=== PATIENT | female | born 1965 | race Caucasian/White ===

== ENCOUNTER 2017-08-13 18:56 | Emergency (ER) | payer MEDICARE, MEDICAID ==
[2017-08-13] MEDS ORDERED: NS 0.9% 1000 ML* 1,000 ML IV ONE (22:06)
[2017-08-13] MEDS ORDERED: Ketorolac INJ* 30 MG/ML 1 ML VIAL IV PUSH ONE (22:06)
[2017-08-13 22:50] LABS: ABS Basophils 0 10^3/ul (0-0.2); ABS Eosinophils 0.2 10^3/ul (0-0.6); ABS Lymphocytes 0.5 10^3/ul (1.0-4.8); ABS Monocytes 0.4 10^3/ul (0-0.8); ABS Neutrophils 6.5 10^3/ul (1.5-7.7); ABS Nucleated RBC 0 10^3/ul; Eosinophil % 2.5 % (0-6); Hematocrit 38 % (35-47); Hemoglobin 13.1 g/dl (12.0-16.0); Lymphocyte % 7.1 % (25-47); Mean Corpuscular HGB Conc 34 g/dl (31-36); Mean Corpuscular Hemoglobin 31 pg (27-31); Mean Corpuscular Volume 90 fL (80-97); Mean Platelet Volume 6 um3 (7.4-10.4); Nucleated Red Blood Cells % 0.1; Platelet Count 296 10^3/ul (150-450); Red Cell Distribution Width 21 % (10.5-15); White Blood Count 7.7 10^3/ul (3.5-10.8)
[2017-08-13 22:57] LABS: INR 0.87 (0.77-1.02)
[2017-08-13 23:57] LABS: Urine Appearance Cloudy; Urine Blood 2+ (Negative); Urine Color Yellow; Urine Ketones Negative (Negative); Urine Protein 1+(30 mg/dL) (Negative); Urine Specific Gravity 1.014 (1.010-1.030); Urine Urobilinogen Negative (Negative)
[2017-08-14] MEDS ORDERED: Levofloxacin TAB* 500 MG PO ONE (00:19)
[2017-08-14] MEDS ORDERED: Ibuprofen TAB* 800 MG PO ONE (00:20)
[2017-08-14] MEDS ORDERED: NS 0.9% 1000 ML* 1,000 ML IV ONE (00:39)
[2017-08-14] MEDS ORDERED: Iodixanol* (CONTRAST) 320 MG/ML 100 ML SDV IV ONE (01:16)
--- NOTE | 2017-08-14 02:36 | ED ---
Scott Kessler Tiffany, scribed for Sohan Shultz MD on 08/13/17 at 2211 . Complex/Multi-Sys Presentation - HPI Summary HPI Summary: The patient is a 51 y/o F c/o left flank pain since 17:00. Describes as sharp and comes and goes every 15-20 minutes and lasts for 2-3 minutes. Rates the pain 9/10 in severity. Symptoms aggravated by nothing. Symptoms alleviated by nothing. Reports nausea. Denies dysuria. Hx of kidney stones. Recent chemo and radiation for esophageal cancer. Finished chemo on 08/07/17. On radiation for the next two days. - History Of Current Complaint Chief Complaint: EDFlankPain Time Seen by Provider: 08/13/17 22:00 Hx Obtained From: Patient Onset/Duration: Lasting Hours - Since 17:00 today, Still Present Timing: Intermittent, Lasting: - 2-3 minutes every 15-20 minutes Severity Currently: Severe - 9/10 Location: Pain At: - left flank Character: Sharp Aggravating Factor(s): Nothing Alleviating Factor(s): Nothing Associated Signs And Symptoms: Positive: Nausea. Negative: Dysuria - Allergies/Home Medications Allergies/Adverse Reactions: Allergies Allergy/AdvReac Type Severity Reaction Status Date / Time acetaminophen Allergy See Comment Verified 08/13/17 19:09 [From Darvocet-N] diphenhydramine Allergy Anaphylatic Verified 08/13/17 19:09 [From Benadryl] Shock MS Acetaminophen Allergy See Comment Verified 10/04/16 16:24 [From Darvocet-N] MS Diphenhydramine Allergy Anaphylatic Verified 10/04/16 16:24 [From Benadryl] Shock MS Penicillins [PCN] Allergy Rash Verified 10/04/16 16:24 MS Propoxyphene Allergy See Comment Verified 10/04/16 16:24 [From Darvocet-N] MS Sulfa Antibiotics Allergy Rash Verified 10/04/16 16:24 [Sulfa Antibiotics] Penicillins Allergy Rash Verified 08/13/17 19:09 propoxyphene Allergy See Comment Verified 08/13/17 19:09 [From Darvocet-N] Sulfa (Sulfonamide Allergy Rash Verified 08/13/17 19:09 Antibiotics) PMH/Surg Hx/FS Hx/Imm Hx Previously Healthy: No Endocrine/Hematology History: Reports: Hx Diabetes - type 2 Cardiovascular History: Reports: Hx Hypertension - TAKES MEDICATION Denies: Hx Pacemaker/ICD Sensory History: Denies: Hx Hearing Aid Neurological History: Reports: Hx Seizures - Cancer History Cancer Type, Location and Year: HYPERPLASIA. Esophageal cancer - Surgical History Surgery Procedure, Year, and Place: HYSTERECTOMY. GALLBLADDER Infectious Disease History: No Infectious Disease History: Denies: Traveled Outside the [place] in Last 30 Days - Family History Known Family History: Positive: Other - No FHx of breast CA - Social History Alcohol Use: None Hx Substance Use: No Substance Use Type: Reports: None Hx Tobacco Use: No Smoking Status (MU): Never Smoked Tobacco Review of Systems Positive: Nausea Negative: dysuria Positive: Other - Left flank pain All Other Systems Reviewed And Are Negative: Yes Physical Exam - Summary Physical Exam Summary: VITAL SIGNS: Reviewed. GENERAL: Patient is a morbidly obsese female who is lying comfortable in the stretcher. Patient is not in any acute respiratory distress. HEAD AND FACE: No signs of trauma. No ecchymosis, hematomas or skull depressions. No sinus tenderness. EYES: PERRLA, EOMI x 2, No injected conjunctiva, no nystagmus. EARS: Hearing grossly intact. Ear canals and tympanic membranes are within normal limits. MOUTH: Oropharynx within normal limits. NECK: Supple, trachea is midline, no adenopathy, no JVD, no carotid bruit, no c- spine tenderness, neck with full ROM. BACK: Left CVA tenderness CHEST: Symmetric, no tenderness at palpation LUNGS: Clear to auscultation bilaterally. No wheezing or crackles. CVS: Regular rate and rhythm, S1 and S2 present, no murmurs or gallops appreciated. ABDOMEN: Soft, non-tender. No signs of distention. No rebound no guarding, and no masses palpated. Bowel sounds are normal. EXTREMITIES: FROM in all major joints, no edema, no cyanosis or clubbing. NEURO: Alert and oriented x 3. No acute neurological deficits. Speech is normal and follows commands. SKIN: Dry and warm Triage Information Reviewed: Yes Vital Signs On Initial Exam: Initial Vitals Temp Pulse Resp BP Pulse Ox 97.9 F 129 20 141/99 99 08/13/17 19:05 08/13/17 19:05 08/13/17 19:05 08/13/17 19:05 08/13/17 19:05 Vital Signs Reviewed: Yes Diagnostics - Vital Signs Vital Signs Temp Pulse Resp BP Pulse Ox 08/13/17 19:05 97.9 F 129 20 141/99 99 - Laboratory Result Diagrams: 08/13/17 22:34 08/13/17 22:34 Lab Statement: Any lab studies that have been ordered have been reviewed, and results considered in the medical decision making process. - CT CT Abd/Pel CT Interpretation Completed By: Radiologist - There is a tiny calcified nodule in the right lower lobe compatible with a granuloma. The visualized lung bases are otherwise clear. Small hiatal hernia. Cholecystectomy clips in the gallbladder fossa. Enlarged fatty liver. Mild splenomegaly. Possible small nonobstructing stone in the lower pole of the left kidney. The upper abdominal visceral organs are otherwise unremarkable. A normal appendix is visualized. Scattered colonic diverticula without evidence of acute diverticulitis. The uterus is absent. No intra-abdominal free air or free fluid. The ED physician reviewed this radiology report. CTA Chest CT Interpretation: No Acute Changes - No acute pathology. ED physician reviewed this radiology report. CT Interpretation Completed By: Radiologist - EKG 0035 Cardiac Rate: Tachycardia - 120 bpm EKG Rhythm: Sinus Tachycardia EKG Interpretation: Normal axis. Normal intervals. Complex Multi-Symp Course/Dx Assessment/Plan: The patient is a 51 y/o F c/o left flank pain since 17:00. Describes as sharp and comes and goes every 15-20 minutes and lasts for 2-3 minutes. Rates the pain 9/10 in severity. Symptoms aggravated by nothing. Symptoms alleviated by nothing. Reports nausea. Denies dysuria. Hx of kidney stones. Recent chemo and radiation for esophageal cancer. Finished chemo on . On radiation for the next two days. CT Abd/Pel and CTA Chest reveal on acute findings. EKG is sinus tachy. Bloodwork was done. UA reveals a UTI. Pt will be D/C to home with Dx of UTI with Rx for Levaquin. She understands and agrees. Allergies noted. - Diagnoses Provider Diagnoses: UTI (urinary tract infection) Discharge - Discharge Plan Condition: Stable Disposition: HOME Prescriptions: Levofloxacin TAB* [Levaquin TAB*] 500 mg PO DAILY #7 tab Patient Education Materials: Urinary Tract Infection in Women (ED) Referrals: Jose Horne DO [Primary Care Provider] - 3 Days Additional Instructions: RETURN TO EMERGENCY DEPARTMENT FOR ANY RETURNING OR WORSENING SYMPTOMS. The documentation as recorded by the Scott mcwilliams Tiffany accurately reflects the service I personally performed and the decisions made by , Sohan Shultz MD.
[2017-08-14 02:57] VITALS: BP 128/79
--- NOTE | 2017-08-14 07:34 | RAD ---
CLINICAL HISTORY: Abdominal pain, left flank pain, history of esophageal cancer COMPARISON: PET CT dated June 29, 2012 TECHNIQUE: Multiple contiguous axial CT scans were obtained of the abdomen and pelvis, without intravenous contrast enhancement. Coronal and sagittal multiplanar reformations are submitted for review. Oral contrast was not administered. FINDINGS: The study is limited by the lack of intravenous contrast. This limits evaluation of the solid organs and vasculature. LUNG BASES: The lung bases are clear. LIVER: The liver is diffusely low in attenuation compared to the spleen. There are no focal hepatic parenchymal masses. Liver measures 23.4 cm in long axis. BILE DUCTS: There is no intrahepatic or extrahepatic biliary dilatation. GALLBLADDER: The gallbladder is not visualized. Surgical clips are noted in the gallbladder fossa. PANCREAS: The pancreas is normal, without mass or ductal dilatation. SPLEEN: The spleen measures 13.1 cm in long axis. UPPER GI TRACT: Evaluation of the gastrointestinal tract is limited by incomplete gastric distention. There is a small sliding hiatal hernia. SMALL BOWEL AND MESENTERY: The small bowel is normal in contour, course, and caliber. There is no obstruction or dilatation. COLON: There are multiple diverticula throughout the transverse and descending and sigmoid colon. There is no pericolonic inflammatory change. ADRENALS: Normal bilaterally. KIDNEYS: There is a punctate calculus of lower pole of left kidney measuring 0.1 cm. There is no hydronephrosis. There is no appreciable ureteral stone. BLADDER: The bladder is smooth in contour. PELVIC ORGANS: The pelvic organs are not visualized. AORTA: The aorta is normal. IVC: Unremarkable LYMPH NODES: There is no lymphadenopathy by size criteria. ABDOMINAL WALL: There is no evidence for abdominal wall hernia. BONES AND SOFT TISSUES: Mild degenerative changes are noted. OTHER: None IMPRESSION: 1. PUNCTATE NONOBSTRUCTING LEFT RENAL CALYCEAL STONE. NO APPRECIABLE URETERAL STONE OR HYDRONEPHROSIS. 2. DIVERTICULOSIS. 3. HEPATOMEGALY WITH FATTY INFILTRATION OF THE LIVER. 4. THE SPLEEN IS AT THE UPPER LIMITS OF NORMAL IN SIZE
--- NOTE | 2017-08-14 07:43 | RAD ---
INDICATION: Chest pain. Short of breath. Evaluate for pulmonary embolus. History of esophageal carcinoma COMPARISON: PET scan June 29, 2017 TECHNIQUE: Axial source images were obtained from the thoracic inlet to the hemidiaphragms following administration of [address] angiographic technique was utilized. Coronal and sagittal reconstructed images were acquired. CHEST FINDINGS: Neck/thyroid: The visualized neck to include the thyroid appear normal. Chest wall: There are no acute abnormalities of the bony thorax or chest wall. There is no supraclavicular, infraclavicular, or axillary lymphadenopathy. Lungs : There are no pulmonary parenchymal masses or infiltrates. The pulmonary interstitium appears normal. There are no endobronchial lesions. Cardiomediastinal structures: There is no CT evidence of acute pulmonary embolic disease. The heart is normal in size. There is no pericardial effusion. There is no evidence of aortic aneurysm or dissection. There is no mediastinal or hilar adenopathy. There are calcified mesenteric lymph nodes consistent with old granulomatous disease. There is mild diffuse mural thickening of the esophagus. Pleura : There are no pleural-based masses or effusions. Other: Limited views the upper abdomen show marked hepatic steatosis with hepatomegaly. IMPRESSION: NO CT EVIDENCE OF ACUTE PULMONARY EMBOLIC DISEASE. MURAL THICKENING OF THE ESOPHAGUS. OLD GRANULOMATOUS DISEASE. HEPATOMEGALY WITH . HEPATIC STEATOSIS
== END 2017-08-14 03:01 | disposition home or self-care (01) ==
LOC: ED 18:56
DX: N39.0 Urinary tract infection, site not specified (principal); R10.84 Generalized abdominal pain; R11.0 Nausea; E11.9 Type 2 diabetes mellitus without complications; K57.90 Diverticulosis of intestine, part unspecified, without perforation or abscess without bleeding
CPT/HCPCS: 36415; 71275; 74176; 80053; 81003; 81015; 82150; 83690; 83735; 85025; 85610; 85730; 86140; 87077; 87086; 87186; 93005; 96374; 99284; A9270-GY; J1885; Q9967

== ENCOUNTER → 2017-09-13 12:45 | Day surgery (SDC) | payer MEDICARE, MEDICAID ==
[~2017-09-13 12:45] MED LIST: Buffered Lidocaine 0.9% SYRIN* 5 ML/SYR SYRINGE INTRADERM ONE; Famotidine IV* 10 MG/ML 2 ML (20 mg) IV ONE; Famotidine IV* 10 MG/ML 2 ML (20 mg) ONE; Flumazenil* 0.1 MG/ML 5 ML MDV ONE; HYDROmorphone INJ* 1 MG/ML CARPUJECT SYRINGE IV PRN; Lidocaine 2% PF * 5 ML VIAL ONE; Metoprolol Tartrate IV* 1 MG/ML 5 ML VIAL ONE; Midazolam* 1 MG/ML 2 ML VIAL (2 MG) ONE; Naloxone* 0.4 MG/ML 1 ML VIAL ONE; Ondansetron INJ* 2 MG/ML VIAL IV PRN; Propofol* 10 MG/ML 20 ML BTL IV PUSH ONE; Scopolamine 1.5 mg* PATCH TRANSDERM PRN; Scopolamine PATCH Remove* 1 NOTE MISC PATCH OFF ONE; Sodium Citrate/Citric Acid* 15 ML UDC ONE; Sodium Citrate/Citric Acid* 15 ML UDC PO ONE; VASOPRESSIN 20 UNITS/ML 1 ML VIAL ONE; fentaNYL* 50 MCG/ML 2 ML VIAL (100 MCG VIAL) IV PRN; fentaNYL* 50 MCG/ML 2 ML VIAL (100 MCG VIAL) ONE
[2017-09-13] MEDS: Naloxone* 0.4 MG/ML 1 ML VIAL IV PRN ×3 (16:43→16:47)
[2017-09-13 19:05] VITALS: BP 138/93
--- NOTE | 2017-09-14 10:15 | PRO ---
CC: Dr. Gómez; Dr. Jose Horne DATE OF PROCEDURE: 09/13/17 REFERRING PHYSICIANS: Dr. Gómez, Dr. Jose Horne. PROCEDURE PERFORMED: Colonoscopy to cecum. PREOPERATIVE DIAGNOSIS: [id number] female here for routine screening colonoscopy. POSTOPERATIVE DIAGNOSES: 1. 5 mm polyp x4 of the rectum, status post jumbo biopsy resection, complete resection and retrieval . 2. Scattered diverticulosis throughout the colon. 3. Internal hemorrhoids. PROCEDURE MEDICATIONS: Per Anesthesia. The procedure is performed in the OR due to BMI and multiple comorbidities. INSTRUMENT: PCF-190 Olympus variable high-definition pediatric colonoscope. DESCRIPTION OF PROCEDURE: Informed consent was obtained prior to performing this procedure. The ins trument was introduced into the anus and passed to the rectum under direct visualization. The instru ment was then advanced up to the cecum. The cecum was confirmed by visualization of the appendiceal orifice, ileocecal valve, and tri-folds of the cecum. The colonoscope was slowly withdrawn. The pre paration was fair with abundant irrigation and suctioning. Visualization was minimally limited, but adequate to exclude the presence of any significant lesions. The mucosa of the cecum, ascending colo n, transverse colon, descending colon, sigmoid colon was normal. Scattered diverticulosis was noted throughout the colon. In the rectum, there were four 5 mm polyps removed via jumbo biopsy resection, complete resection and retrieval. Internal hemorrhoids were visualized in the rectum. Digital exami nation was normal. The patient tolerated the procedure well and there were no complications. RECOMMENDATIONS: We will notify the patient of pathology results in 1 week. Likely these are small a denomas and we will plan on followup colonoscopy in 5 years. [id number]/[facility] #: [id number]
--- NOTE | 2017-09-14 10:33 | PRO ---
CC: Dr. Gómez; Dr. Jose Horne GASTROENTEROLOGY PROCEDURE NOTE: DATE OF PROCEDURE: 09/13/17 REFERRING PHYSICIAN: Dr. Jose Horne. PROCEDURE: EGD with biopsies. 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 She was deemed a poor surgical candidate due to multiple com orbidities and underwent chemotherapy and radiation therapy, which was completed on 08/07/17. She de la paz s been on omeprazole 40 mg b.i.d. for years. She had stage IB N0 M0 cancer of the upper third of the esophagus. She complains of recent dysphagia particularly to meats and large foods. POSTOPERATIVE DIAGNOSES: 1. Evidence of 2 cm sessile inflammatory, question suspicious lesion at 32 cm from the incisors. Mu ltiple biopsies obtained. 2. Evidence of distal esophagitis with jagged Z-line at 40 cm from the incisors. Biopsies obtained. 3. Mild gastritis. 4. Normal small bowel. PROCEDURE MEDICATIONS: Per Anesthesia. INSTRUMENT: GF-190 Olympus high-definition gastroscope. PROCEDURE IN DETAIL: Informed consent was obtained prior to performing this procedure. The instrume nt was introduced into the mouth and passed through the cervical esophagus under direct visualization . The instrument was then advanced down the esophagus. At 32 cm from the incisors, there was a sess ile 2 cm inflammatory versus suspicious lesion. Photograph and multiple biopsies were obtained. No stricture was present throughout the proximal or mid esophagus. There was evidence of some scarring c onsistent with prior radiation therapy. In the distal esophagus at the level of the GE junction at 4 0 cm from the incisors, there was evidence of esophagitis with a jagged Z-line. Biopsies were obtain ed. The scope was passed into the gastric cardia, fundus, body and antrum. Mild antral gastritis was present. The scope was passed through the pylorus and the duodenal bulb and descending duodenum, debra th of which were normal. The instrument was withdrawn from the patient. Patient tolerated the proce dure well and there were no complications. RECOMMENDATIONS: I will contact the patient in 1 week with biopsy results. She should follow up robby Gómez as planned. [id number]/[facility] #: [id number]
== END | disposition home or self-care (01) ==
LOC: OR 12:45
PROVIDERS: ATTEND Internal Medicine
DX: C15.4 Malignant neoplasm of middle third of esophagus (principal); R13.10 Dysphagia, unspecified; K20.9 Esophagitis, unspecified; K29.60 Other gastritis without bleeding; Z12.11 Encounter for screening for malignant neoplasm of colon; K62.1 Rectal polyp; K64.8 Other hemorrhoids; K57.30 Diverticulosis of large intestine without perforation or abscess without bleeding; E11.9 Type 2 diabetes mellitus without complications; I10 Essential (primary) hypertension; E03.9 Hypothyroidism, unspecified; M79.7 Fibromyalgia; Z68.42 Body mass index [BMI] 45.0-49.9, adult; K31.84 Gastroparesis; K76.0 Fatty (change of) liver, not elsewhere classified; R16.0 Hepatomegaly, not elsewhere classified
CPT/HCPCS: 78815; 88305; 88360; A9270-GY; A9552; J2250; J2310; J2704; J3010; J3490

== ENCOUNTER 2017-12-27 21:38 | Inpatient (IN) | payer MEDICARE, MEDICAID ==
[2017-12-27] MEDS ORDERED: Acetaminophen TAB* 325 MG PO ONE (22:01)
[2017-12-27] MEDS ORDERED: Ibuprofen TAB* 400 MG PO ONE (22:01)
--- NOTE | 2017-12-28 00:20 | HP ---
H&P (Free Text) History and Physical: PCP: Shavon Horne MD Oncology: Chago Gómez MD Date/Time: 12/28/2017 0030 CC: dislodged feeding tube HPI: Mrs Couch is a pleasant 52YO female HX esophageal CA s/p radioTX, LUE DVT/ PE who has been at [facility] for rehab the past 2 weeks. She states her feeding tube dressing had not been changed for 4 days and when it was being changed by nursing, it was adherent to the feeding tube extricating it. ED has consulted oncology who advised inserting a place vicente and overnight observation and they will arrange replacement via GI in AM. Ms Couch has no complaints otherwise. 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 Case reviewed b/t ED & oncology providers. Oncology requests observation in order to arrange replacement in AM by GI. PMedHx esophageal CA s/p radioTX LUE DVT/PE on rivaroxaban DM2 asthma HTN HLD hypothyroidism depression Ambulatory Orders Sertraline* [Zoloft*] 100 mg PO QPM 02/16/15 Acetaminophen TAB* [Tylenol TAB*] 650 mg G TUBE Q4H PRN 12/27/17 Albuterol 2.5MG/3ML (0.083%)* [Ventolin 2.5 MG/3 ML NEB.SHADE*] 2.5 mg INH Q6H PRN 12/27/17 Erythromycin Ethylsuc SUSP* [Ees*] 250 mg PO QID 12/27/17 Glycerin [Fleet Liquid Glycerin Sup] 5.4 gm NH DAILY PRN 12/27/17 Insulin ASPART (NF) [Novolog (NF)] 0 - 100 units SUBCUT AC 12/27/17 Insulin GLARGINE(*) [Lantus(*)] 10 units SUBCUT DAILY 12/27/17 Levothyroxine TAB* [Synthroid TAB*] 50 mcg G TUBE QAM 12/27/17 Magnesium Hydroxide LIQ* [Milk of Magnesia LIQ*] 30 ml G TUBE BID PRN 12/27/17 Metoprolol Tartrate TAB* [Lopressor TAB*] 12.5 mg PO BID 12/27/17 Pravastatin (NF) [Pravachol (NF)] 40 mg PO DAILY 12/27/17 QUEtiapine TAB* [Seroquel 25 MG TAB*] 50 mg PO DAILY 12/27/17 Rivaroxaban TAB(*) [Xarelto 15 mg(*)] 15 mg PO BID 12/27/17 traMADol TAB* [Ultram*] 50 mg PO BID PRN 12/27/17 Allergies diphenhydramine [From Benadryl] Allergy (Verified 12/27/17 21:48) Anaphylatic Shock latex Allergy (Verified 12/27/17 21:48) blisters on skin Penicillins Allergy (Verified 12/27/17 21:48) Rash phenobarbital Allergy (Verified 12/27/17 21:48) Unknown Reaction Details propoxyphene [From Darvocet-N] Allergy (Verified 12/27/17 21:48) See Comment Sulfa (Sulfonamide Antibiotics) Allergy (Verified 12/27/17 21:48) Rash SocHx: former smoker, no alcohol or recreational drugs; single; full code status FamHx: reviewed & non-contributor to presentation ROS: as above, otherwise reviewed and all were negative vitals: Vital Signs Temp 36.5 C 12/27/17 21:46 Pulse 122 12/28/17 01:03 Resp 16 12/28/17 01:03 BP 162/109 12/27/17 21:46 Pulse Ox 97 12/28/17 01:03 Intake & Output 12/27/17 12/27/17 12/28/17 11:59 23:59 11:59 Weight 124.738 kg Constitutional: NAD, normally developed, morbidly obese white female HEENM: atraumatic; sclera/conjunctiva: anicteric/clear; hearing: clinically intact; oropharynx: clear, mucosa moist Neck: soft tissue: non-tender; thyroid: normal Pulmonary: clear to auscultation bilaterally, fair aeration, no accessory muscle use CV: RR/RR, normal S1S2, no carotid bruit, no jugular venous distention, 2+ B DP/ PT, no edema Abdominal: soft, non-distended, non-tender, no rebound/guarding/rigidity, normoactive bowel sounds, no hepatosplenomegaly or masses, no costovertebral angle tenderness Musculoskeletal: general: L 2nd distal phalanx with eschar at tip Integumental: L abdomen with catheter placed by ED MD into jejunostomy site, no erythema, bleeding, warmth, tenderness, or induration Psychiatric orientation: AA&O to PPS affect: flat mood: cooperative eye contact: fair content: reliable responses: timely insight: good Impression: 52F HX esophageal CA w/ feeding tube dislodged this evening by [facility] nursing during dressing change DIAGNOSIS & PLAN Primary feeding tube dislodged : admit observation to oncology service to arrange replacement via GI in AM Secondary esophageal CA s/p radioTX : continue outpatient management per oncology LUE DVT/PE : continue rivaroxaban DM2 : check A1c : basal/correctional insulin asthma : continue albuterol HTN : continue metoprolol HLD : continue pravastatin hypothyroidism : continue levothyroxine depression : continue sertraline & quetiapine Admission Rational: CDU observation for feeding tube replacement DVTp: continue rivaroxaban Code Status: full HCP: mother, Lisa Boland
[2017-12-28] MEDS ORDERED: GLYCERIN PR PRN (00:40)
[2017-12-28] MEDS ORDERED: Magnesium Hydroxide LIQ* 30 ML UDC PO PRN (00:40)
[2017-12-28] MEDS ORDERED: Acetaminophen TAB* 325 MG PO PRN (00:40)
[2017-12-28] MEDS ORDERED: Albuterol 2.5 MG/3 ML NEB.SOL* (0.083%) INH ONE (00:46)
[2017-12-28] MEDS: Albuterol 2.5 MG/3 ML NEB.SOL* (0.083%) INH SCH ×4 (01:02→19:35)
--- NOTE | 2017-12-28 01:20 | ED ---
Complex/Multi-Sys Presentation - HPI Summary HPI Summary: Pt is a 52 y/o F with a J-tube and stitches that were accidentally pulled out by [facility]dc staff when they were attempting to change a 2-3 day old bandage. Pt states that she had esophagectomy and notes that, "they stitched up the ends". She reports that there was a plan to wean the Pt off of the J-tube but states that the [facility]dc staff did not follow through with this plan. Per triage, she denies any pain. - History Of Current Complaint Chief Complaint: EDGeneral Time Seen by Provider: 12/27/17 22:00 Hx Obtained From: Patient Onset/Duration: Sudden Onset, Still Present Severity Currently: None - Pt denies pain Associated Signs And Symptoms: Negative: Abdominal Pain - Allergies/Home Medications Allergies/Adverse Reactions: Allergies Allergy/AdvReac Type Severity Reaction Status Date / Time diphenhydramine Allergy Anaphylatic Verified 12/27/17 21:48 [From Benadryl] Shock latex Allergy blisters Verified 12/27/17 21:48 on skin Penicillins Allergy Rash Verified 12/27/17 21:48 phenobarbital Allergy Unknown Verified 12/27/17 21:48 Reaction Details propoxyphene Allergy See Comment Verified 12/27/17 21:48 [From Darvocet-N] Sulfa (Sulfonamide Allergy Rash Verified 12/27/17 21:48 Antibiotics) Home Medications: Home Medications Acetaminophen TAB* [Tylenol TAB*] 650 mg G TUBE Q4H PRN 12/27/17 [History Confirmed 12/27/17] Albuterol 2.5MG/3ML (0.083%)* [Ventolin 2.5 MG/3 ML NEB.SHADE*] 2.5 mg INH Q6H PRN 12/27/17 [History Confirmed 12/27/17] Erythromycin Ethylsuc SUSP* [Ees*] 250 mg PO QID 12/27/17 [History Confirmed 06/04] Glycerin [Fleet Liquid Glycerin Sup] 5.4 gm GA DAILY PRN 12/27/17 [History Confirmed 12/27/17] Insulin ASPART (NF) [Novolog (NF)] 0 - 100 units SUBCUT AC 12/27/17 [History Confirmed 12/27/17] Insulin GLARGINE(*) [Lantus(*)] 10 units SUBCUT DAILY 12/27/17 [History Confirmed 12/27/17] Levothyroxine TAB* [Synthroid TAB*] 50 mcg G TUBE QAM 12/27/17 [History Confirmed 12/27/17] Magnesium Hydroxide LIQ* [Milk of Magnesia LIQ*] 30 ml G TUBE BID PRN 12/27/17 [ History Confirmed 12/27/17] Metoprolol Tartrate TAB* [Lopressor TAB*] 12.5 mg PO BID 12/27/17 [History Confirmed 12/27/17] Pravastatin (NF) [Pravachol (NF)] 40 mg PO DAILY 12/27/17 [History Confirmed 06/04] QUEtiapine TAB* [Seroquel 25 MG TAB*] 50 mg PO DAILY 12/27/17 [History Confirmed 12/27/17] Rivaroxaban TAB(*) [Xarelto 15 mg(*)] 15 mg PO BID 12/27/17 [History Confirmed 12/27/17] traMADol TAB* [Ultram*] 50 mg PO BID PRN 12/27/17 [History Confirmed 12/27/17] PMH/Surg Hx/FS Hx/Imm Hx Endocrine/Hematology History: Reports: Hx Diabetes - type 2, Hx Thyroid Disease - hypo Cardiovascular History: Reports: Hx Hypertension - TAKES MEDICATION Denies: Hx Pacemaker/ICD, Other Cardiovascular Problems/Disorders Respiratory History: Denies: Other Respiratory Problems/Disorders GI History: Reports: Hx Gastroesophageal Reflux Disease Denies: Other GI Disorders History: Denies: Hx Renal Disease Musculoskeletal History: Denies: Other Musculoskeletal History Sensory History: Reports: Hx Contacts or Glasses - glasses Denies: Hx Hearing Aid Opthamlomology History: Reports: Hx Contacts or Glasses - glasses Neurological History: Reports: Hx Nerve Disease - fibromyalgia, Hx Seizures - with strobe lights, no meds, last one 3-4 yrs ago Denies: Other Neuro Impairments/Disorders Psychiatric History: Reports: Hx Anxiety - on meds, Hx Depression - on meds Denies: Hx Panic Disorder - Cancer History Cancer Type, Location and Year: esophagus Hx Chemotherapy: Yes - Surgical History Surgery Procedure, Year, and Place: HYSTERECTOMY, 2007, [place]. GALLBLADDER, 2009 , [place] Hx Anesthesia Reactions: Yes - diff to wake up Infectious Disease History: No Infectious Disease History: Denies: Traveled Outside the US in Last 30 Days - Family History Known Family History: Positive: Other - No FHx of breast CA Family History: No FHx of breast CA - Social History Alcohol Use: None Hx Substance Use: No Substance Use Type: Reports: None Hx Tobacco Use: No Smoking Status (MU): Former Smoker Review of Systems Negative: Fever Positive: Other - removed J-tube and stitches . Negative: Abdominal Pain All Other Systems Reviewed And Are Negative: Yes Physical Exam - Summary Physical Exam Summary: Appearance: Well-appearing, Well-nourished, lying in bed comfortably Skin: Warm, dry, no obvious rash Eyes: sclera anicteric, no conjunctival pallor ENT: mucous membranes moist, pharynx appears normal Neck: Supple, nontender Respiratory: Clear to auscultation, no signs of respiratory distress Cardiovascular: Normal S1, S2. No murmurs. Normal distal pulses in tibial and radial bilaterally. Abdomen: Soft, nontender, normal active bowel sounds present. Musculoskeletal: Normal, Strength/ROM Intact Neurological: A&Ox3, awake and alert, mentation is normal, speech is fluent and appropriate Psychiatric: affect is normal, does not appear anxious or depressed Triage Information Reviewed: Yes Vital Signs On Initial Exam: Initial Vitals Temp Pulse Resp BP Pulse Ox 97.7 F 129 22 162/109 97 12/27/17 21:46 12/27/17 21:46 12/27/17 21:46 12/27/17 21:46 12/27/17 21:46 Vital Signs Reviewed: Yes Diagnostics - Vital Signs Vital Signs Temp Pulse Resp BP Pulse Ox 12/28/17 01:03 122 16 97 12/27/17 21:46 97.7 F 129 22 162/109 97 - Laboratory Lab Statement: Any lab studies that have been ordered have been reviewed, and results considered in the medical decision making process. Complex Multi-Symp Course/Dx - Diagnoses Provider Diagnoses: Jejunostomy tube fell out Discharge - Sign-Out/Discharge Documenting (check all that apply): Patient Departure - Discharge Plan Condition: Good Disposition: ADMITTED TO [facility] - Billing Disposition and Condition Condition: GOOD Disposition: Admitted to [facility]
[2017-12-28] MEDS: traMADol TAB* 50 MG PO PRN ×2 (02:13→16:35)
[2017-12-28] MEDS: Rivaroxaban TAB(*) 15 MG PO SCH ×2 (02:13→10:48)
[2017-12-28] MEDS: Insulin LISPRO* 1 UNITS UNIT SUBCUT SCH ×6 (02:51→22:41)
[2017-12-28] MEDS: Albuterol 2.5 MG/3 ML NEB.SOL* (0.083%) INH PRN (03:00)
[2017-12-28 06:20] LABS: ABS Basophils 0.1 10^3/ul (0-0.2); ABS Eosinophils 0.2 10^3/ul (0-0.6); ABS Lymphocytes 0.6 10^3/ul (1.0-4.8); ABS Monocytes 0.4 10^3/ul (0-0.8); ABS Nucleated RBC 0 10^3/ul; Eosinophil % 3.4 % (0-6); Hematocrit 33 % (35-47); Mean Corpuscular HGB Conc 34 g/dl (31-36); Mean Corpuscular Hemoglobin 28 pg (27-31); Mean Corpuscular Volume 84 fL (80-97); Mean Platelet Volume 6.8 um3 (7.4-10.4); Nucleated Red Blood Cells % 0.3; Platelet Count 312 10^3/ul (150-450); Red Blood Count 3.91 10^6/ul (4.00-5.40); Red Cell Distribution Width 17 % (10.5-15); White Blood Count 5.2 10^3/ul (3.5-10.8)
[2017-12-28] MEDS: Levothyroxine TAB* 50 MCG TAB PO SCH ×2 (06:25→09:52)
[2017-12-28 06:28] LABS: INR 1.33 (0.77-1.02)
[2017-12-28 06:37] LABS: EGFR Non-African American 99.6 (>60)
[2017-12-28] MEDS: Metoprolol Tartrate TAB* 25 MG PO SCH ×2 (10:01→22:51)
[2017-12-28] MEDS: Atorvastatin* 10 MG TAB PO SCH (10:06)
[2017-12-28] MEDS: QUEtiapine TAB* 25 MG PO SCH (10:47)
[2017-12-28] MEDS: [UNRECOGNIZED DRUG - OTHER] PO SCH ×2 (10:47→13:38)
--- NOTE | 2017-12-28 11:45 | PN ---
Progress Note - Progress Note Date of Service: 12/28/17 SOAP: Subjective: [This is a 52 yo female with recurrent esophageal CA who underwent minimally invasive esophagectomy with cervical anastomosis and J tube placement 11/01/[address] at [facility]. Her postoperative course with complicated by a LUE DVT and subsequent PE while on reportedly therapeutic doses of Lovenox, treated acutely with argatroban, transitioned to Xarelto at discharge. Interestingly her dose of Xarelto is still listed at 15mg twice daily, although her PE was at least 6 weeks ago. She exhibited stroke like symptoms ~1 week postoperatively, w/u was negative for acute infarct and her neurologic deficits resolved. She spent several weeks in rehab associated with [facility] and was transferred to [facility] ~ 2 weeks ago. She reports that up until recently she had been receiving tube feedings 20hrs daily and eating one meal per day by mouth. She was told by her surgeon she could advance to 3 small meals daily by mouth and continuous tube feeds in the overnight hours, with plans to taper her tube feedings further. Yesterday, her J-tube became dislodged during a dressing change. She was transferred to the ER. A Carlin catheter was placed in her tract to maintain patency. Her Jtube site became acutely painful earlier this am. The catheter had slipped deeper and her pain was relieved by pulling some of the length of the catheter back out.] Objective: [ Laboratory Results - last 24 hr 12/28/17 12/28/17 12/28/17 02:25 05:59 05:59 WBC 5.2 RBC 3.91 L Hgb 11.0 L Hct 33 L MCV 84 MCH 28 MCHC 34 RDW 17 H Plt Count 312 MPV 6.8 L Neut % (Auto) 76.4 Lymph % (Auto) 12.0 L Wood % (Auto) 7.1 H Eos % (Auto) 3.4 Baso % (Auto) 1.1 Absolute Neuts (auto) 4.0 Absolute Lymphs (auto) 0.6 L Absolute Monos (auto) 0.4 Absolute Eos (auto) 0.2 Absolute Basos (auto) 0.1 Absolute Nucleated RBC 0 Nucleated RBC % 0.3 INR (Anticoag Therapy) 1.33 H Sodium Potassium Chloride Carbon Dioxide Anion Gap BUN Creatinine Est GFR ( Amer) Est GFR (Non-Af Amer) BUN/Creatinine Ratio Glucose POC Glucose (mg/dL) 120 H Calcium 12/28/17 12/28/17 12/28/17 05:59 06:14 10:05 WBC RBC Hgb Hct MCV MCH MCHC RDW Plt Count MPV Neut % (Auto) Lymph % (Auto) Wood % (Auto) Eos % (Auto) Baso % (Auto) Absolute Neuts (auto) Absolute Lymphs (auto) Absolute Monos (auto) Absolute Eos (auto) Absolute Basos (auto) Absolute Nucleated RBC Nucleated RBC % INR (Anticoag Therapy) Sodium 139 Potassium 3.8 Chloride 105 Carbon Dioxide 27 Anion Gap 7 BUN 12 Creatinine 0.63 Est GFR ( Amer) 120.5 Est GFR (Non-Af Amer) 99.6 BUN/Creatinine Ratio 19.0 Glucose 146 H POC Glucose (mg/dL) 140 H 141 H Calcium 9.6 Acetaminophen (Tylenol Tab*) 650 mg PO Q4H PRN PRN Reason: PAIN Albuterol (Ventolin 2.5 Mg/3 Ml Neb.Patti*) 2.5 mg INH [id number] AWAKE [facility] Last Admin: 12/28/17 07:13 Dose: 2.5 mg Albuterol (Ventolin 2.5 Mg/3 Ml Neb.Patti*) 2.5 mg INH Q2H PRN PRN Reason: SOB/WHEEZING Last Admin: 12/28/17 03:00 Dose: 2.5 mg Atorvastatin Calcium (Lipitor*) 10 mg PO DAILY [facility]; Protocol Last Admin: 12/28/17 10:06 Dose: 10 mg Erythromycin Ethylsuccinate (Ees*) 250 mg PO QID [facility] Last Admin: 12/28/17 10:47 Dose: Not Given Insulin Glargine (Lantus(*)) 30 units 0.24 units/kg (30 units) SUBCUT 2100 [facility] Stop: 12/29/17 20:00 Insulin Human Lispro (Humalog*) 0 units SUBCUT Q4H [facility]; Protocol Last Admin: 12/28/17 10:48 Dose: Not Given Levothyroxine Sodium (Synthroid Tab*) 50 mcg PO 0600 [facility] Last Admin: 12/28/17 09:52 Dose: 50 mcg Magnesium Hydroxide (Milk Of Magnesia Liq*) 30 ml PO BID PRN PRN Reason: CONSTIPATION Metoprolol Tartrate (Lopressor Tab*) 12.5 mg PO BID [facility] Last Admin: 12/28/17 10:01 Dose: 12.5 mg Non-Formulary Medication (Glycerin [Glycerin Laxative]) 5.4 gm AR DAILY PRN PRN Reason: CONSTIPATION Quetiapine Fumarate (Seroquel Tab*) 50 mg PO DAILY [facility] Last Admin: 12/28/17 10:47 Dose: Not Given Rivaroxaban (Xarelto(*)) 15 mg PO BID [facility] Last Admin: 12/28/17 10:48 Dose: Not Given Sertraline HCl (Zoloft*) 100 mg PO QPM [facility] Tramadol HCl (Ultram*) 50 mg PO BID PRN PRN Reason: PAIN Last Admin: 12/28/17 02:13 Dose: 50 mg Vital Signs: Temp Pulse Resp BP Pulse Ox 98.2 F 110 19 145/83 97 12/28/17 11:01 12/28/17 11:01 12/28/17 11:01 12/28/17 11:01 12/28/17 11:01 Exam: Gen: 52 yo obese female who initially appeared in moderate distress HEENT: MMM CV: mildly tachycardic, RRR Resp: diffuse wheeze, no crackles or rhonchi Abd: J tube site in RUQ, Carlin catheter in place. Bowel sounds present, but hypoactive. Soft and nonTTP Ext: No LE edema] Assessment: [52 yo female with recurrent esophageal CA s/p esophagectomy 11/01/17 [address] at [facility]. She was admitted overnight after her Jtube became dislodged during a dressing change postoperatively. Currently awaiting surgical consultation for replacement.] Plan: [1. Dislodged Jtube - Carlin catheter in place to maintain potency - surgical consultation requested for replacement of tube - maintain NPO for now - resume tube feedings once replaced 2. Esophageal CA - recurrent at site just distal to prior radiation field, no evidence of distant or LN disease - now s/p esophagectomy with Dr Henriquez 11/01/17 3. DVT/PE - recent DVT/PE following esophagectomy - cont Xarelto, but at 20 mg once daily (will discuss anticoagulation with surgery prior to giving today's dose) 4. DM - cont basal/bolus coverage 5. Obesity Dispo: return home v [facility] following J tube replacement ]
--- NOTE | 2017-12-28 16:17 | RAD ---
INDICATION: Jejunal feeding tube check. COMPARISON: November 26, 2017 CT. Written informed consent obtained. Timeout performed. PROCEDURE: 40 mL Gastrografin contrast injected through the jejunal port on the feeding tube with opacification of the jejunum with subsequent appropriate distal propagation of contrast through the jejunum. The feeding tube appears coiled within a bowel loop. Subsequently Dr. Wells removed and shortened the length of the catheter prior to reinsertion. Subsequent an additional 40 mL Gastrografin injection documents documents appropriate enteric location of the feeding tube. No evidence for extra enteric extension of the injected Gastrografin. 0.2 minutes fluoroscopy. IMPRESSION: Acceptable position of the percutaneous jejunal feeding tube. CPT II Codes: G9500
[2017-12-28] MEDS: Sertraline* 100 MG TAB PO SCH (17:51)
[2017-12-28] MEDS ORDERED: Insulin GLARGINE(*) 1 UNITS UNIT SUBCUT SCH (21:00)
--- NOTE | 2017-12-29 01:17 | PRO ---
CC: Jose Horne DO; [facility]; [facility] PROCEDURE REPORT: DATE OF PROCEDURE: 12/28/17 SURGEON: Stevie Wells MD DEV OPS ENGINEER: None. ANESTHESIA: None. PRE-OP DIAGNOSIS: Esophageal carcinoma. POST-OP DIAGNOSIS: Esophageal carcinoma. PROCEDURE: Replacement of jejunal feeding tube. SPECIMEN: None. TUBE: 14-Fr jejunal feeding tube DESCRIPTION OF PROCEDURE: The patient was explained the procedure and verbal consent was obtained. She was positioned supine on the bed. The indwelling Carlin catheter was removed. A 14-Fr silicone, jejunal feeding catheter was placed without difficulty after cutting toa length of about 15-in.. The balloon was inflated with 7 mL water. The flange of the tube was snugged down to the abdominal wall. She tolerated the procedure well. Position was confirmed by fluoroscopy. [id number]/CPS #: [id number] MTDD
[2017-12-29] MEDS: Albuterol 2.5 MG/3 ML NEB.SOL* (0.083%) INH SCH ×3 (01:24→12:33)
[2017-12-29] MEDS: Insulin LISPRO* 1 UNITS UNIT SUBCUT SCH ×6 (02:53→21:27)
[2017-12-29] MEDS: Levothyroxine TAB* 50 MCG TAB PO SCH (05:41)
[2017-12-29] MEDS: Metoprolol Tartrate TAB* 25 MG PO SCH ×2 (09:30→22:12)
[2017-12-29] MEDS: QUEtiapine TAB* 25 MG PO SCH (09:30)
[2017-12-29] MEDS: Atorvastatin* 10 MG TAB PO SCH (09:31)
[2017-12-29] MEDS ORDERED: Ondansetron TAB* 4 MG PO PRN (14:21)
[2017-12-29] MEDS: Rivaroxaban TAB(*) 20 MG TAB PO SCH (18:03)
[2017-12-29] MEDS: Sertraline* 100 MG TAB PO SCH (18:03)
[2017-12-29] MEDS: Albuterol 2.5 MG/3 ML NEB.SOL* (0.083%) INH PRN (21:04)
[2017-12-30] MEDS: Insulin LISPRO* 1 UNITS UNIT SUBCUT SCH ×6 (04:20→21:51)
[2017-12-30] MEDS: Albuterol 2.5 MG/3 ML NEB.SOL* (0.083%) INH PRN ×2 (04:44→20:50)
[2017-12-30] MEDS: Levothyroxine TAB* 50 MCG TAB PO SCH (06:28)
[2017-12-30] MEDS: Atorvastatin* 10 MG TAB PO SCH (10:14)
[2017-12-30] MEDS: Metoprolol Tartrate TAB* 25 MG PO SCH ×2 (10:14→21:58)
[2017-12-30] MEDS: QUEtiapine TAB* 25 MG PO SCH (10:14)
[2017-12-30] MEDS ORDERED: Loperamide CAP* 2 MG PO PRN (10:19)
[2017-12-30] MEDS: Sertraline* 100 MG TAB PO SCH (18:09)
[2017-12-30] MEDS: Rivaroxaban TAB(*) 20 MG TAB PO SCH (18:09)
[2017-12-30] MEDS ORDERED: Insulin GLARGINE(*) 1 UNITS UNIT SUBCUT SCH (21:00)
[2017-12-31] MEDS: Insulin LISPRO* 1 UNITS UNIT SUBCUT SCH ×3 (02:11→13:02)
[2017-12-31] MEDS: Levothyroxine TAB* 50 MCG TAB PO SCH (06:07)
[2017-12-31 07:58] VITALS: BP 137/94
[2017-12-31] MEDS: QUEtiapine TAB* 25 MG PO SCH (08:16)
[2017-12-31] MEDS: Metoprolol Tartrate TAB* 25 MG PO SCH (08:17)
[2017-12-31] MEDS: Atorvastatin* 10 MG TAB PO SCH (08:18)
[2017-12-31] MEDS: Albuterol 2.5 MG/3 ML NEB.SOL* (0.083%) INH PRN (09:48)
--- NOTE | 2017-12-31 12:46 | DS ---
CC: Dr. Horne; Dr. Marky Gómez; Dr. Henriquez of [facility]. * DISCHARGE SUMMARY: DATE OF ADMISSION: 12/28/17 DATE OF DISCHARGE: 12/31/17 PRIMARY CARE PROVIDER: Dr. Horne. PRIMARY MEDICAL ONCOLOGIST: Marky Gómez MD. CONSULTING SURGEON: Stevie Wells MD. PRIMARY SURGEON AT [facility]: Dr. Henriquez. ATTENDING PHYSICIAN: Alonso Yi MD.* (DICTATED BY NORY GILLIAM) DISCHARGING PROVIDER: NORY Gilliam. PRIMARY DISCHARGE DIAGNOSES: 1. Dislodged J-tube, replaced by Dr. Wells. 2. Recurrent esophageal cancer, status post esophagectomy with cervical anastomosis by Dr. Henriquez at [facility], 11/01/17. 3. Left upper extremity deep vein thrombosis and subsequent pulmonary embolus following esophagectomy. 4. Insulin-dependent diabetes. 5. Obesity with a BMI of 44.7. HOSPITAL IMAGING: Tube check status post replacement of J-tube shows acceptable positioning of percutaneous jejunal feeding tube. HOSPITAL COURSE: This is a 52-year-old female who underwent concurrent chemo and radiation for esophageal cancer and unfortunately experienced recurrence just distal to her radiation filed without evidence of distal disease who underwent esophagectomy at [facility], 11/01/17. The patient experienced left upper extremity DVT and some transient stroke like symptoms as complications of her surgical course and was in a rehab type unit for several weeks following surgery and was subsequently discharged to [facility] for subacute rehab for two weeks. During a dressing change at [facility] her J-tube became dislodged and she was transferred to the emergency department for evaluation. As she presented in the overnight hours, she had a Carlin catheter placed at her J-tube place to maintain patency and was admitted for a period of observation. The patient was evaluated by surgery on the following day and J-tube was successfully replaced. The patient experienced the left upper extremity DVT and subsequent PE reportedly on therapeutic doses of Lovenox in her postoperative period and she was treated acutely with argatroban and transitioned to Xarelto at the time of discharge. At the time of admission here, she was still taking 15 mg of Xarelto twice daily, although from reviewing discharge summaries it appears that her embolic event was approximately six weeks ago and she was transitioned to 20 mg once a day. She had no other complications during this hospitalization. DISCHARGE PLAN AND DISPOSITION: The patient is being discharged to home and she met rehab goals at [facility]. Per her surgeon, recommendations are to continue with tube feedings for 10 hours a day in the overnight period, specifically from 8 p.m. to 6 a.m., at a rate of 85 mL per hour and she can have three small meals daily and mechanical ground solids, nectar thickened liquids. She denies any dysphagia during her hospitalization and will follow up with her surgeon sometime in the next couple of weeks for further instructions regarding her tube feeds. The patient has been set up with [facility] for tube feedings at home and is relatively independent with tube care. She has followup with Dr. Gómez in approximately two weeks. Plan to continue Lantus at 10 units nightly. At this time, she was not on insulin therapy prior to surgery and this can likely be tapered over if the coming week just depending on what her oral intake and fasting glucose looks like. NORY GILLIAM [id number]/[facility] #: [id number] ONDINA
== END 2017-12-31 12:10 | disposition home health service (06) | DRG 394 ==
LOC: ED 21:38 → MED 12-28 00:46 → OBSVTOIN 12-30 11:03
PROVIDERS: ADMIT Hospitalist; ATTEND Internal Medicine Hematology & Oncology
PROC: 0D2DXUZ Change Feeding Device in Lower Intestinal Tract, External Approach (ICD-10-PCS; principal; 2017-12-28)
PROC: 0T9B70Z Drainage of Bladder with Drainage Device, Via Natural or Artificial Opening (ICD-10-PCS; 2017-12-28)
DX: Z43.4 Encounter for attention to other artificial openings of digestive tract (principal); C15.9 Malignant neoplasm of esophagus, unspecified; Z68.41 Body mass index [BMI] 40.0-44.9, adult; I10 Essential (primary) hypertension; E11.9 Type 2 diabetes mellitus without complications; E03.9 Hypothyroidism, unspecified; K21.9 Gastro-esophageal reflux disease without esophagitis; F41.9 Anxiety disorder, unspecified; F32.9 Major depressive disorder, single episode, unspecified; E78.5 Hyperlipidemia, unspecified; J45.909 Unspecified asthma, uncomplicated; E66.9 Obesity, unspecified; Z86.711 Personal history of pulmonary embolism; Z85.01 Personal history of malignant neoplasm of esophagus; Z90.710 Acquired absence of both cervix and uterus; Z92.3 Personal history of irradiation; Z88.6 Allergy status to analgesic agent; Z88.0 Allergy status to penicillin; Z88.2 Allergy status to sulfonamides; Z88.8 Allergy status to other drugs, medicaments and biological substances; Z90.49 Acquired absence of other specified parts of digestive tract; Z80.8 Family history of malignant neoplasm of other organs or systems; Z87.891 Personal history of nicotine dependence; Z86.718 Personal history of other venous thrombosis and embolism; Z79.01 Long term (current) use of anticoagulants
CPT/HCPCS: 36415; 49465; 80048; 85025; 85610; 87641; 94640; 99226; 99233; 99239; 99284; A9270-GY; G0378

== ENCOUNTER 2018-01-07 14:34 | Emergency (ER) | payer MEDICARE, MEDICAID ==
--- NOTE | 2018-01-07 15:16 | ED ---
Complex/Multi-Sys Presentation - HPI Summary HPI Summary: This is scribe Hanh Chavez documenting for attending Madi Aguilar MD. 52 year old F sent from Dr. Gómez's office [facility] complains of nausea and vomiting bile since two days ago. Symptoms aggravated by nothing. Symptoms alleviated by nothing. She reports BLE edema since resolved. Patient's esophagus removed two months ago d/t esophageal cancer. Patient has J tube. She was admitted after surgery and was discharged 12/31/17. She states she has not been taking her medication this past week since being discharged because she didn't know she was supposed to. Patient called Dr. Gómez's office this morning and was sent to ED. - History Of Current Complaint Chief Complaint: EDNauseaVomitDiarrh Time Seen by Provider: 01/07/18 15:02 Hx Obtained From: Patient Onset/Duration: Lasting Days - 3, Still Present Aggravating Factor(s): nothing Alleviating Factor(s): nothing - Allergies/Home Medications Allergies/Adverse Reactions: Allergies Allergy/AdvReac Type Severity Reaction Status Date / Time diphenhydramine Allergy Anaphylatic Verified 01/07/18 15:42 [From Benadryl] Shock latex Allergy blisters Verified 01/07/18 15:42 on skin Penicillins Allergy Rash Verified 01/07/18 15:42 phenobarbital Allergy Unknown Verified 01/07/18 15:42 Reaction Details propoxyphene Allergy See Comment Verified 01/07/18 15:42 [From Darvocet-N] Sulfa (Sulfonamide Allergy Rash Verified 01/07/18 15:42 Antibiotics) PMH/Surg Hx/FS Hx/Imm Hx Previously Healthy: No Endocrine/Hematology History: Reports: Hx Diabetes - type 2, Hx Thyroid Disease - hypo Cardiovascular History: Reports: Hx Deep Vein Thrombosis - x3 in LUE, Hx Hypercholesterolemia, Hx Hypertension - TAKES MEDICATION Denies: Hx Pacemaker/ICD, Other Cardiovascular Problems/Disorders Respiratory History: Reports: Hx Asthma Denies: Other Respiratory Problems/Disorders GI History: Reports: Hx Gastroesophageal Reflux Disease, Other GI Disorders - CA OF ESOPH/ ESOPH REMOVED. 10/2017 History: Denies: Hx Renal Disease Musculoskeletal History: Reports: Hx Fibromyalgia Denies: Other Musculoskeletal History Sensory History: Reports: Hx Contacts or Glasses - glasses Denies: Hx Hearing Aid Opthamlomology History: Reports: Hx Contacts or Glasses - glasses Neurological History: Reports: Hx CVA, Hx Nerve Disease - fibromyalgia, Hx Seizures - with strobe lights, no meds, last one 3-4 yrs ago Psychiatric History: Reports: Hx Anxiety - on meds, Hx Depression - on meds Denies: Hx Panic Disorder - Cancer History Cancer Type, Location and Year: esophagus Hx Chemotherapy: Yes Hx Radiation Therapy: Yes - Surgical History Surgery Procedure, Year, and Place: HYSTERECTOMY, 2007, [place]. GALLBLADDER, 2009 , [place] Hx Anesthesia Reactions: Yes - diff to wake up Infectious Disease History: No Infectious Disease History: Denies: Traveled Outside the [place] in Last 30 Days - Family History Known Family History: Positive: Other - No FHx of breast CA Family History: No FHx of breast CA - Social History Alcohol Use: None Hx Substance Use: No Substance Use Type: Reports: None Hx Tobacco Use: Yes Smoking Status (MU): Former Smoker Review of Systems Positive: Vomiting - bile, Nausea, Other - patient has J tube Positive: Edema - BLE since resolved All Other Systems Reviewed And Are Negative: Yes Physical Exam - Summary Physical Exam Summary: Appearance: The patient is well-nourished in no acute distress and in no acute pain. Skin: The skin is warm and dry and skin color reflects adequate perfusion. HEENT: The head is normocephalic and atraumatic. The pupils are equal and reactive. The conjunctivae are clear and without drainage. Nares are patent and without drainage. Mouth reveals moist mucous membranes and the throat is without erythema and exudate. The external ears are intact. The ear canals are patent and without drainage. The tympanic membranes are intact. Neck: The neck is supple with full range of motion and non-tender. There are no carotid bruits. There is no neck vein distension. Respiratory: Chest is non-tender. Lungs are clear to auscultation and breath sounds are symmetrical and equal. Cardiovascular: Heart is regular rate and rhythm. There is no murmur or rub auscultated. There is no peripheral edema and pulses are symmetrical and equal. Abdomen: The abdomen is soft and non-tender. There are normal bowel sounds heard in all four quadrants and there is no organomegaly palpated. J tube site is clean. Musculoskeletal: There is no back tenderness noted. Extremities are non-tender with full range of motion. There is good capillary refill. There is no peripheral edema or calf tenderness elicited. Neurological: Patient is alert and oriented to person, place and time. The patient has symmetrical motor strength in all four extremities. Cranial nerves are grossly intact. Deep tendon reflexes are symmetrical and equal in all four extremities. Psychiatric: The patient has an appropriate affect and does not exhibit any anxiety or depression. Triage Information Reviewed: Yes Vital Signs On Initial Exam: Initial Vitals Temp Pulse Resp BP Pulse Ox 97.6 F 120 20 128/98 97 01/07/18 14:39 01/07/18 14:39 01/07/18 14:39 01/07/18 14:39 01/07/18 14:39 Vital Signs Reviewed: Yes Diagnostics - Vital Signs Vital Signs Temp Pulse Resp BP Pulse Ox 01/07/18 14:39 97.6 F 120 20 128/98 97 - Laboratory Result Diagrams: 01/07/18 15:59 01/07/18 15:59 Lab Statement: Any lab studies that have been ordered have been reviewed, and results considered in the medical decision making process. Re-Evaluation - Re-Evaluation First Eval Re-Evaluation Time: 18:10 Comment: Discussed discharge plan with patient, who is agreeable to discharge Complex Multi-Symp Course/Dx Course Of Treatment: Ms. Couch went home from the hospital about a week ago in the last few days she has been having some vomiting and is not keeping her medications down. She comes in quite upset and complaining mostly of nausea. Her workup was within normal limits aside from a positive UA. She felt quite improved with fluids and Zofran. She was given IV Cipro and prescriptions for Cipro and Zofran to go and it is recommended she follow up with her PCP this week. - Diagnoses Provider Diagnoses: Urinary tract infection, Dehydration Discharge - Sign-Out/Discharge Documenting (check all that apply): Patient Departure - Discharge - Discharge Plan Condition: Stable Disposition: HOME Prescriptions: Ciprofloxacin TAB* [Cipro Tab*] 500 mg PO BID #14 tab Ondansetron ODT TAB* [Zofran Odt TAB*] 4 mg PO Q6H PRN #20 tab.odt PRN Reason: Nausea/Vomiting Patient Education Materials: Dehydration (ED), Urinary Tract Infection in Women (ED) Referrals: Jose Horne DO [Doctor of Osteopathy] - 3 Days Additional Instructions: Follow up with your primary care provider in 3 days. Return to the Emergency Department for new or worsening symptoms. - Billing Disposition and Condition Condition: STABLE Disposition: Home
[2018-01-07] MEDS ORDERED: NS 0.9% 1000 ML* 1,000 ML IV ONE (16:15)
[2018-01-07] MEDS ORDERED: Ondansetron INJ* 2 MG/ML VIAL IV ONE (16:15)
[2018-01-07 16:16] LABS: ABS Basophils 0.1 10^3/ul (0-0.2); ABS Eosinophils 0.2 10^3/ul (0-0.6); ABS Lymphocytes 0.5 10^3/ul (1.0-4.8); ABS Monocytes 0.4 10^3/ul (0-0.8); ABS Neutrophils 6.2 10^3/ul (1.5-7.7); ABS Nucleated RBC 0 10^3/ul; Eosinophil % 2.3 % (0-6); Hematocrit 35 % (35-47); Hemoglobin 11.6 g/dl (12.0-16.0); Lymphocyte % 7.5 % (25-47); Mean Corpuscular HGB Conc 33 g/dl (31-36); Mean Corpuscular Hemoglobin 28 pg (27-31); Mean Corpuscular Volume 84 fL (80-97); Mean Platelet Volume 6.9 um3 (7.4-10.4); Nucleated Red Blood Cells % 0.2; Platelet Count 292 10^3/ul (150-450); Red Blood Count 4.14 10^6/ul (4.00-5.40); Red Cell Distribution Width 16 % (10.5-15); White Blood Count 7.4 10^3/ul (3.5-10.8)
[2018-01-07 16:17] LABS: INR 1.01 (0.77-1.02)
[2018-01-07 16:51] LABS: EGFR Non-African American 94.4 (>60)
[2018-01-07] MEDS ORDERED: Ciprofloxacin 400MG IVPREMIX(* 400 MG/200 ML BAG IVPB ONE (17:45)
[2018-01-07 19:40] VITALS: BP 113/91
== END 2018-01-07 19:41 | disposition home or self-care (01) ==
LOC: ED 14:34
DX: N39.0 Urinary tract infection, site not specified (principal); E86.0 Dehydration; C15.9 Malignant neoplasm of esophagus, unspecified; I10 Essential (primary) hypertension; F41.9 Anxiety disorder, unspecified; F32.9 Major depressive disorder, single episode, unspecified; Z79.899 Other long term (current) drug therapy; Z90.49 Acquired absence of other specified parts of digestive tract; Z93.4 Other artificial openings of gastrointestinal tract status; Z87.891 Personal history of nicotine dependence; Z88.0 Allergy status to penicillin; Z88.8 Allergy status to other drugs, medicaments and biological substances; Z88.2 Allergy status to sulfonamides
CPT/HCPCS: 36415; 80053; 83605; 83690; 84484; 85025; 85610; 86140; 96361; 96365; 96375; 99283; J0744; J2405

== ENCOUNTER 2018-01-15 20:14 | Emergency (ER) | payer MEDICARE, MEDICAID ==
--- OUTSIDE RECORDS SUMMARY | 2018-01-15 20:59 | XMS REPORT ---
:1965 External Reference #:[id number] Author Organization [employer] Address [address] [place] [address] [place] [address] Phone [phone] Care Team Providers Name Role Phone Marky Gómez MD Primary Care Physician Unavailable Payers Type Date Identification Numbers Payment Provider Subscriber Medicare Primary Effective: Policy Number: Medicare Shireen Couch 2016 [id number] PayID: [id number] [address] [place] [address] Medifort payne Part B Effective: 2011 Policy Number: Medicaid Shireen Couch [id number] PayID: [id number] [address] [place] [address] Problems Date Description Provider Status Onset: 10/12/2017 Essential hypertension Junior Colin M.D., [facility], Active FASNC Onset: 10/12/2017 Difficulty breathing Junior Colin M.D., [facility], Active FASNC Onset: 12/28/2017 Type 2 diabetes mellitus Daniel Williamson II, M.D. Active Onset: 12/28/2017 Malignant tumor of esophagus Daniel Williamson II, M.D. Active Onset: 12/28/2017 Other complications of Daniel Williamson II, M.D. Active esophagostomy Family History Date Family Member(s) Problem(s) Comments General patient adopted and doesnt know famiy history Social History Type Date Description Comments Marital Status Lives With children live with patient Occupation Disabled ETOH Use Denies alcohol use Smoking Patient is a former smoker Quit 1992 Recreational Drug Use Denies Drug Use Daily Caffeine Consumes on average 3 cups of regular coffee per day Daily Caffeine consumes chocolate frequently Exercise Type/Frequency Does not exercise Allergies, Adverse Reactions, Alerts Date Description Reaction Status Severity Comments 10/12/2017 Darvocet active 10/12/2017 Benadryl active 10/12/2017 Penicillin active 10/12/2017 Phenobarbital active 10/12/2017 Oxaliplatin active 10/12/2017 Plexion active 10/12/2017 Latex active 10/12/2017 Bee Sting active 10/12/2017 Peppers active Medications Medication Date Status Form Strength Qnty SIG Indications Ordering Provider Lisinopril / Active Tablets 5mg 1 by mouth Unknown 0000 every day Tramadol HCL / Active Tablets 50mg 2- tablet Unknown 0000 by mouth every 6 hours as needed pain Sertraline HCL / Active Tablets 100mg 1 by mouth Unknown 0000 every day Vitamin D-3 / Active Tablets 5000Unit take 1 tab Unknown 0000 by mouth daily Cranberry With / Active Tablets 4200mg 1 by mouth Unknown Vitamin C 0000 twice daily Magnesium / Active Tablets 400mg 2 by mouth Unknown 0000 every day Levothyroxine / Active Tablets 75mcg 1 by mouth Unknown Sodium 0000 every day Omeprazole / Active Capsules 40mg 1 by mouth Unknown 0000 DR twice daily Epipen 2-Yonas / Active Solution 0.3mg/0.3M use as Unknown 0000 Auto-Injec L directed t Ibuprofen / Active Tablets 200mg 4 by mouth Unknown 0000 as needed Medications Administered in Office Medication Date Status Form Strength Qnty SIG Indications Ordering Provider Inj, Administered Injection Junior Jac Regadenoson, 018 Cristi, 0.1 MG Shital, FACC, FASNC Technetium TC Administered Injection Junior Nathan 99M 018 Cristi, Tetrofosmin, Shital, FACC, Per Unit Dose FASNC Up To 40 Millicuries Technetium TC Administered Injection Ica Nuclear 99M 018 Schedule Tetrofosmin, Per Unit Dose Up To 40 Millicuries Vital Signs Date Vital Result Comment 01/10/2018 Height 64.25 inches 5'4.25" Weight 200.00 lb Heart Rate 62 /min BP Systolic 114 mmHg BP Diastolic 60 mmHg Respiratory Rate 18 /min Body Temperature 97.7 F BMI (Body Mass Index) 34.1 kg/m2 10/23/2017 Height 64.25 inches 5'4.25" Weight 272.00 lb BP Systolic Sitting 130 mmHg lue lg cuff BP Diastolic Sitting 90 mmHg lue lg cuff BP Systolic Standing 140 mmHg lue lg cuff BP Diastolic Standing 90 mmHg lue lg cuff Respiratory Rate 20 /min Pain Level 9 back BMI (Body Mass Index) 46.3 kg/m2 Ejection Fraction 60-65% 10/16/2017 echo 10/12/2017 Height 64.25 inches 5'4.25" Weight 266.00 lb Heart Rate 108 /min BP Systolic 124 mmHg Ra Large Cuff BP Diastolic 80 mmHg Ra Large Cuff BP Systolic Sitting 124 mmHg LA Large Cuff BP Diastolic Sitting 86 mmHg LA Large Cuff BP Systolic Standing 124 mmHg LA Large Cuff BP Diastolic Standing 90 mmHg LA Large Cuff Respiratory Rate 16 /min Pain Level 8 back O2 % BldC Oximetry 97 % BMI (Body Mass Index) 45.3 kg/m2 Results Description No Information Procedures Date CPT Code Description Status 10/22/2017 08405 Stress Test Completed 10/22/2017 72256 Myocardial Perfusion Imaging Tomographic (Spect) Completed Multiple Studies 10/16/2017 72530 ECHO Transthoracic, Real-Time 2D With Doppler And Color Completed Flow 10/16/2017 18047 ECHO Transthoracic, Real-Time 2D With Doppler And Color Completed Flow 10/12/2017 99914 EKG Tracing & Interpretation Completed 09/13/2017 29779 Colonoscopy Flexible W/Biopsy Completed 09/13/2017 10803 Endoscopy Upper GI Biopsy Completed 09/13/2017 Colonoscopy Completed Encounters Type Date Location Provider CPT E/M Dx Office Visit 10/23/2017 [facility], 49164 R06.00 3:00p Juan Isaacs, CLARENCE SOLORZANO Office Visit 10/12/2017 [facility], [id number] I10 11:20a Juan Ayonland Shital, CLARENCE SOLORZANO R06.00 Plan of Care No Information Available
[2018-01-15 21:12] LABS: ABS Basophils 0 10^3/ul (0-0.2); ABS Eosinophils 0.2 10^3/ul (0-0.6); ABS Lymphocytes 0.7 10^3/ul (1.0-4.8); ABS Monocytes 0.3 10^3/ul (0-0.8); ABS Neutrophils 4.1 10^3/ul (1.5-7.7); ABS Nucleated RBC 0 10^3/ul; Eosinophil % 3.7 % (0-6); Hematocrit 34 % (35-47); Hemoglobin 11.6 g/dl (12.0-16.0); Lymphocyte % 12.9 % (25-47); Mean Corpuscular HGB Conc 34 g/dl (31-36); Mean Corpuscular Hemoglobin 28 pg (27-31); Mean Corpuscular Volume 84 fL (80-97); Mean Platelet Volume 6.7 um3 (7.4-10.4); Nucleated Red Blood Cells % 0.1; Platelet Count 277 10^3/ul (150-450); Red Blood Count 4.11 10^6/ul (4.00-5.40); Red Cell Distribution Width 16 % (10.5-15); White Blood Count 5.3 10^3/ul (3.5-10.8)
[2018-01-15 21:37] LABS: EGFR Non-African American 85.4 (>60)
[2018-01-15] MEDS ORDERED: Iohexol 300* (CONTRAST) 10 ML SDV IV ONE (22:34)
[2018-01-16] MEDS ORDERED: NS 0.9% 1000 ML* 1,000 ML IV ONE (00:07)
--- NOTE | 2018-01-16 01:37 | ED ---
Nausea/Vomiting/Diarrhea HPI - HPI Summary HPI Summary: Patient with history of esophagus removed for esophageal cancer on November 01 complains of vomiting with possible hematemesis starting today. Emesis is light brown color, denies bright red. Patient has feeding tube. Patient called Dr. Mcgowan and was advised to come to the ED. Patient has appointment in [place] for follow-up on esophageal surgery. Patient followed locally by Dr. Gallardo oncology. Patient denies any other symptoms including fever, cough, sore throat, CP, SOB, diarrhea, abdominal pain, change in urine or BM. Medical history is esophageal cancer. Nonsmoker Xarelto for active blood clot in left arm and llung. - History of Current Complaint Chief Complaint: EDGIBleed Stated Complaint: GENERAL ILLNESS Time Seen by Provider: 01/15/18 20:39 Hx Obtained From: Patient Onset/Duration: Sudden Onset Timing: Intermittent Episodes Lasting: Severity Currently: None Pain Intensity: 0 Pain Scale Used: 0-10 Numeric Aggravating Factor(s): Nothing Alleviating Factor(s): Nothing Nausea/Vomiting Presence: Vomiting - Allergies/Home Medications Allergies/Adverse Reactions: Allergies Allergy/AdvReac Type Severity Reaction Status Date / Time diphenhydramine Allergy Anaphylatic Verified 01/07/18 15:42 [From Benadryl] Shock latex Allergy blisters Verified 01/07/18 15:42 on skin Penicillins Allergy Rash Verified 01/07/18 15:42 phenobarbital Allergy Unknown Verified 01/07/18 15:42 Reaction Details propoxyphene Allergy See Comment Verified 01/07/18 15:42 [From Darvocet-N] Sulfa (Sulfonamide Allergy Rash Verified 01/07/18 15:42 Antibiotics) PMH/Surg Hx/FS Hx/Imm Hx Endocrine/Hematology History: Reports: Hx Anticoagulant Therapy, Hx Thyroid Disease - hypo Denies: Hx Diabetes Cardiovascular History: Reports: Hx Deep Vein Thrombosis - x3 in LUE, Hx Hypercholesterolemia, Hx Hypertension - TAKES MEDICATION Denies: Hx Pacemaker/ICD, Other Cardiovascular Problems/Disorders Respiratory History: Reports: Hx Asthma Denies: Other Respiratory Problems/Disorders GI History: Reports: Hx Gastroesophageal Reflux Disease, Other GI Disorders - CA OF ESOPH/ ESOPH REMOVED. 10/2017 History: Denies: Hx Renal Disease Musculoskeletal History: Reports: Hx Fibromyalgia Denies: Other Musculoskeletal History Sensory History: Reports: Hx Contacts or Glasses - glasses Denies: Hx Hearing Aid Opthamlomology History: Reports: Hx Contacts or Glasses - glasses Neurological History: Reports: Hx CVA, Hx Nerve Disease - fibromyalgia, Hx Seizures - with strobe lights, no meds, last one 3-4 yrs ago, Hx Transient Ischemic Attacks (TIA) - October 2017 Denies: Other Neuro Impairments/Disorders Psychiatric History: Reports: Hx Anxiety - on meds, Hx Depression - on meds Denies: Hx Panic Disorder - Cancer History Cancer Type, Location and Year: esophagus Hx Chemotherapy: Yes Hx Radiation Therapy: Yes - Surgical History Surgery Procedure, Year, and Place: [place]CTOM[place], 2007, [place]. [place]DER, 2009 , [place] Hx Anesthesia Reactions: Yes - diff to wake up Infectious Disease History: No Infectious Disease History: Denies: Traveled Outside the [place] in Last 30 Days - Family History Known Family History: Positive: None, Other - No FHx of breast CA Family History: No FHx of breast CA - Social History Alcohol Use: None Hx Substance Use: No Substance Use Type: Reports: None Hx Tobacco Use: Yes Smoking Status (MU): Former Smoker Review of Systems Constitutional: Negative Eyes: Negative ENT: Negative Cardiovascular: Negative Respiratory: Negative Positive: Vomiting Genitourinary: Negative Musculoskeletal: Negative Skin: Negative Neurological: Negative Psychological: Normal All Other Systems Reviewed And Are Negative: Yes Physical Exam - Summary Physical Exam Summary: Emesis light brown in color. Triage Information Reviewed: Yes Vital Signs On Initial Exam: Initial Vitals Temp Pulse Resp BP Pulse Ox 98.6 F 110 18 132/70 93 01/15/18 20:31 01/15/18 20:31 01/15/18 20:31 01/15/18 20:31 01/15/18 20:31 Vital Signs Reviewed: Yes Appearance: Positive: Well-Appearing Skin: Positive: Warm Head/Face: Positive: Normal Head/Face Inspection Eyes: Positive: Normal ENT: Positive: Normal ENT inspection Neck: Positive: Supple Respiratory/Lung Sounds: Positive: Clear to Auscultation Cardiovascular: Positive: Normal Abdomen Description: Positive: Nontender Musculoskeletal: Positive: Normal Neurological: Positive: Normal Psychiatric: Positive: Normal AVPU Assessment: Alert - Greg Coma Scale Best Eye Response: 4 - Spontaneous Best Motor Response: 6 - Obeys Commands Best Verbal Response: 5 - Oriented Coma Scale Total: 15 Diagnostics - Vital Signs Vital Signs Temp Pulse Resp BP Pulse Ox 01/16/18 00:31 144 172/97 01/16/18 00:01 109 140/100 95 01/16/18 00:00 109 95 01/15/18 23:34 120 175/98 95 01/15/18 23:25 110 91 01/15/18 23:04 98.8 F 109 18 138/87 97 01/15/18 23:00 108 165/100 93 01/15/18 20:31 98.6 F 110 18 132/70 93 - Laboratory Lab Results: Lab Results 01/15/18 01/15/18 01/15/18 Range/Units 21:01 21:01 21:01 WBC 5.3 (3.5-10.8) 10^3/ul RBC 4.11 (4.00-5.40) 10^6/ul Hgb 11.6 L (12.0-16.0) g/dl Hct 34 L (35-47) % MCV 84 (80-97) fL MCH 28 (27-31) pg MCHC 34 (31-36) g/dl RDW 16 H (10.5-15) % Plt Count 277 (150-450) 10^3/ul MPV 6.7 L (7.4-10.4) um3 Neut % (Auto) 77.7 (38-83) % Lymph % (Auto) 12.9 L (25-47) % Metcalfe % (Auto) 4.9 (0-7) % Eos % (Auto) 3.7 (0-6) % Baso % (Auto) 0.8 (0-2) % Absolute Neuts (auto) 4.1 (1.5-7.7) 10^3/ul Absolute Lymphs (auto) 0.7 L (1.0-4.8) 10^3/ul Absolute Monos (auto) 0.3 (0-0.8) 10^3/ul Absolute Eos (auto) 0.2 (0-0.6) 10^3/ul Absolute Basos (auto) 0 (0-0.2) 10^3/ul Absolute Nucleated RBC 0 10^3/ul Nucleated RBC % 0.1 INR (Anticoag Therapy) 1.00 (0.77-1.02) Sodium 143 (135-145) mmol/L Potassium 3.7 (3.5-5.0) mmol/L Chloride 107 (101-111) mmol/L Carbon Dioxide 28 (22-32) mmol/L Anion Gap 8 (2-11) mmol/L BUN 16 (6-24) mg/dL Creatinine 0.72 (0.51-0.95) mg/dL Est GFR ( Amer) 103.3 (>60) Est GFR (Non-Af Amer) 85.4 (>60) BUN/Creatinine Ratio 22.2 H (8-20) Glucose 122 H (70-100) mg/dL Lactic Acid (0.5-2.0) mmol/L Calcium 9.5 (8.6-10.3) mg/dL Total Bilirubin 0.60 (0.2-1.0) mg/dL AST 40 H (13-39) U/L ALT 57 H (7-52) U/L Alkaline Phosphatase 110 H (34-104) U/L C-Reactive Protein 9.96 H (<8.01) mg/L Total Protein 6.6 (6.4-8.9) g/dL Albumin 3.9 (3.2-5.2) g/dL Globulin 2.7 (2-4) g/dL Albumin/Globulin Ratio 1.4 (1-3) 01/15/18 Range/Units 21:01 WBC (3.5-10.8) 10^3/ul RBC (4.00-5.40) 10^6/ul Hgb (12.0-16.0) g/dl Hct (35-47) % MCV (80-97) fL MCH (27-31) pg MCHC (31-36) g/dl RDW (10.5-15) % Plt Count (150-450) 10^3/ul MPV (7.4-10.4) um3 Neut % (Auto) (38-83) % Lymph % (Auto) (25-47) % Metcalfe % (Auto) (0-7) % Eos % (Auto) (0-6) % Baso % (Auto) (0-2) % Absolute Neuts (auto) (1.5-7.7) 10^3/ul Absolute Lymphs (auto) (1.0-4.8) 10^3/ul Absolute Monos (auto) (0-0.8) 10^3/ul Absolute Eos (auto) (0-0.6) 10^3/ul Absolute Basos (auto) (0-0.2) 10^3/ul Absolute Nucleated RBC 10^3/ul Nucleated RBC % INR (Anticoag Therapy) (0.77-1.02) Sodium (135-145) mmol/L Potassium (3.5-5.0) mmol/L Chloride (101-111) mmol/L Carbon Dioxide (22-32) mmol/L Anion Gap (2-11) mmol/L BUN (6-24) mg/dL Creatinine (0.51-0.95) mg/dL Est GFR ( Amer) (>60) Est GFR (Non-Af Amer) (>60) BUN/Creatinine Ratio (8-20) Glucose (70-100) mg/dL Lactic Acid 1.2 (0.5-2.0) mmol/L Calcium (8.6-10.3) mg/dL Total Bilirubin (0.2-1.0) mg/dL AST (13-39) U/L ALT (7-52) U/L Alkaline Phosphatase (34-104) U/L C-Reactive Protein (<8.01) mg/L Total Protein (6.4-8.9) g/dL Albumin (3.2-5.2) g/dL Globulin (2-4) g/dL Albumin/Globulin Ratio (1-3) Result Diagrams: 01/15/18 21:01 01/15/18 21:01 Lab Statement: Any lab studies that have been ordered have been reviewed, and results considered in the medical decision making process. - Radiology cxr Xray Interpretation: Positive (See Comments) - Large mediastinum Radiology Interpretation Completed By: ED Physician - CT chest CT Interpretation: No Acute Changes CT Interpretation Completed By: Radiologist Naus/Vom/Diarrhea Course/Dx - Course Course Of Treatment: Patient with history of esophagus removed for esophageal cancer on November 01 complains of vomiting with possible hematemesis starting today. Emesis is light brown color, denies bright red. Patient has feeding tube. Patient called Dr. Mcgowan and was advised to come to the ED. Patient has appointment 01/16 in [place] for follow-up on esophageal surgery. Patient followed locally by Dr. Gallardo oncology. Patient denies any other symptoms including fever, cough, sore throat, CP, SOB, diarrhea, abdominal pain, change in urine or BM. Medical history is esophageal cancer. Nonsmoker. Xarelto for active blood clot in left arm and llung. Patient states baseline heart rate above 100. Vital signs at Patient baseline. CT unremarkable. Hemoglobin stable. Appointment has patient has appointment with surgeon today. Discussed patient with Dr. Flanagan who recommends discharge home follow-up with surgeon today. - Differential Dx/Diagnosis Provider Diagnoses: Hematemesis. Condition At Discharge: Stable Discharge - Sign-Out/Discharge Documenting (check all that apply): Patient Departure - Discharge Plan Condition: Stable Disposition: HOME Patient Education Materials: Hematemesis (ED) Referrals: Marky Gómez MD [Primary Care Provider] - Additional Instructions: Follow-up with your surgeon today for further evaluation of hematemesis. Return to the ED for any new or worsening symptoms - Billing Disposition and Condition Condition: STABLE Disposition: Home
[2018-01-16] MEDS ORDERED: Ondansetron ODT TAB* 4 MG PO ONE (01:56)
[2018-01-16 02:16] VITALS: BP 110/80
--- NOTE | 2018-01-16 07:46 | RAD ---
Indication: Hematemesis, widened mediastinum. Contrast: Administered 80.0 ml of OMNIPAQUE 300 mg/ml CT of the chest performed after IV contrast administration. Coronal and sagittal reconstructed images were obtained. Inferior thyroid lobes are unremarkable. Aorta demonstrates no evidence of aortic dissection. Heart demonstrates no pericardial effusion. There is no mediastinal or hilar adenopathy. The patient is status post gastric pull-through surgery with large right-sided paramediastinal tubular structure representing pull-through stomach. The anastomosis is at the lower neck. Right basilar atelectasis is noted. Left lung field is clear. No focal nodules are identified. The visualized abdominal organs demonstrate hepatic steatosis. IMPRESSION: Compressive atelectasis of the right lung. Patient is status post gastric pull-through. No definite pneumonia is identified.
--- NOTE | 2018-01-16 07:46 | RAD ---
INDICATION: Vomiting blood. COMPARISON: Comparison is made with a prior CT of the chest from July 26, 2017. TECHNIQUE: Dual-energy PA and lateral views of the chest were obtained. FINDINGS: The heart is within normal limits in size. There is focal increased density present along the mediastinum on the right side. This appears to correlate with esophagectomy and gastric pull-through surgery on a prior CT of the chest of the same date. The lungs are underinflated and clear. No pleural effusion or pneumothorax is seen. IMPRESSION: 1. CLEAR LUNGS. 2. FINDINGS CONSISTENT WITH PRIOR GASTRIC PULL-THROUGH SURGERY. R1
== END 2018-01-16 02:15 | disposition home or self-care (01) ==
LOC: ED 20:14
DX: K92.0 Hematemesis (principal); Z86.718 Personal history of other venous thrombosis and embolism; I10 Essential (primary) hypertension; Z79.01 Long term (current) use of anticoagulants; F41.9 Anxiety disorder, unspecified; Z85.01 Personal history of malignant neoplasm of esophagus; Z93.1 Gastrostomy status; Z48.815 Encounter for surgical aftercare following surgery on the digestive system; F32.9 Major depressive disorder, single episode, unspecified; Z88.5 Allergy status to narcotic agent; Z88.0 Allergy status to penicillin; Z88.2 Allergy status to sulfonamides; Z88.8 Allergy status to other drugs, medicaments and biological substances; Z91.040 Latex allergy status
CPT/HCPCS: 36415; 71046; 71260; 80053; 83605; 85025; 85610; 86140; 99284; A9270-GY; Q9967

== ENCOUNTER 2018-10-12 16:55 | Observation (INO) | payer MEDICARE, MEDICAID ==
[2018-10-12] MEDS ORDERED: NS 0.9% 1000 ML** 1,000 ML IV ONE (17:06)
--- OUTSIDE RECORDS SUMMARY | 2018-10-12 17:12 | XMS REPORT | Continuity of Care Document ---
:1965 External Reference #:[id number] Author Name Gianna Miller Care Team Providers Name Role Phone Ayleen Bobby MD Primary Care Physician Unavailable Payers Date Identification Numbers Payment Provider Subscriber Effective: 2016 Policy Number: [id number] Medicare Shireen Couch PayID: [id number] [address] [place] [address] Effective: 2011 Policy Number: [id number] Medicaid Shireen Couch PayID: [id number] [address] [place] [address] Advance Directives Description No Information Available Problems Date Description Provider Status Onset: 10/12/2017 Essential hypertension Junior Colin M.D., [facility], Active FASNC Onset: 10/12/2017 Difficulty breathing Junior Colin M.D., [facility], Active FASNC Onset: 12/28/2017 Other complications of Daniel Williamson II, M.D. 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 Active Onset: 12/28/2017 Type 2 diabetes mellitus Daniel Williamson II, M.D. Active Family History Date Family Member(s) Observation Comments General patient adopted and doesnt know famiy history Social History Type Date Description Comments Sex Unknown Marital Status Lives With children live with patient Occupation Disabled ETOH Use Denies alcohol use Tobacco Use Start: Unknown End: Patient is a former smoker Quit 1992 Unknown Recreational Drug Use Denies Drug Use Smoking Status Reviewed: 09/17/18 Patient is a former smoker Quit 1992 Exercise Type/Frequency Does not exercise Allergies, Adverse Reactions, Alerts Date Description Reaction Status Severity Comments 10/12/2017 Darvocet Active 10/12/2017 Benadryl Active 10/12/2017 Penicillin Active 10/12/2017 Phenobarbital Active 10/12/2017 Oxaliplatin Active 10/12/2017 Plexion Active 10/12/2017 Latex Active 10/12/2017 Bee Sting Active 10/12/2017 Peppers Active Medications Medication Date Status Form Strength Qnty SIG Indications Ordering Provider Lisinopril Active Tablets 5mg 1 by Unknown 0 mouth every day Sertraline HCL Active Tablets 100mg 60tab 2 by Ayleen 0 s mouth MD Kanu every day Vitamin D-3 Active Tablets 5000Unit take 1 Unknown 0 tab by mouth daily Cranberry With Active Tablets 4200mg 1 by Unknown Vitamin C 0 mouth twice daily Magnesium Active Tablets 400mg 2 by Unknown 0 mouth every day Levothyroxine Active Tablets 75mcg 1 by Unknown Sodium 0 mouth every day Omeprazole Active Capsules 40mg [address] mouth twice daily Epipen 2-Yonas Active Solution 0.3mg/0.3 use as Unknown 0 Auto-Injec ML directed t Ibuprofen Active Tablets 200mg 4 by Unknown 0 mouth as needed Tramadol HCL Hx Tablets 50mg 2- tablet Unknown 0 - by mouth Unknown every 6 hours as needed pain Medications Administered in Office Medication Date Status Form Strength Qnty SIG Indications Ordering Provider Inj, Administered Injection Junior Nathan Regadenoson, 018 Cristi, 0.1 MG Shital, FACC, FASNC Technetium TC Administered Injection Junior Nathan 99M 018 Cristi TetrofosminShital, FACC, Per Unit Dose FASNC Up To 40 Millicuries Technetium TC Administered Injection Ica Nuclear 99M 018 Schedule Tetrofosmin, Per Unit Dose Up To 40 Millicuries Immunizations Description No Information Available Vital Signs Date Vital Result Comment 09/17/2018 2:51pm Height 64 inches 5'4" Weight 219.38 lb Heart Rate 100 /min BP Systolic Sitting 120 mmHg Lue large cuff BP Diastolic Sitting 84 mmHg Lue large cuff Respiratory Rate 16 /min O2 % BldC Oximetry 95 % BMI (Body Mass Index) 37.7 kg/m2 08/13/2018 3:06pm Height 64 inches 5'4" Weight 221.00 lb Heart Rate 89 /min BP Systolic Sitting 122 mmHg BP Diastolic Sitting 85 mmHg Body Temperature 98.1 F Pain Level 5 lower back 3 bulging discs O2 % BldC Oximetry 99 % BMI (Body Mass Index) 37.9 kg/m2 07/10/2018 9:16am Height 64 inches 5'4" Weight 225.00 lb Heart Rate 90 /min BP Systolic Sitting 122 mmHg Rue large cuff BP Diastolic Sitting 80 mmHg Rue large cuff Respiratory Rate 12 /min O2 % BldC Oximetry 98 % BMI (Body Mass Index) 38.6 kg/m2 Neck Circumference in inches 16 05/17/2018 9:32am Heart Rate 82 /min Respiratory Rate 18 /min Body Temperature 97.5 F 01/10/2018 10:09am Height 64.25 inches 5'4.25" Weight 200.00 lb Heart Rate 62 /min BP Systolic 114 mmHg BP Diastolic 60 mmHg Respiratory Rate 18 /min Body Temperature 97.7 F BMI (Body Mass Index) 34.1 kg/m2 10/23/2017 2:50pm Height 64.25 inches 5'4.25" Weight 272.00 lb BP Systolic Sitting 130 mmHg lue lg cuff BP Diastolic Sitting 90 mmHg lue lg cuff BP Systolic Standing 140 mmHg lue lg cuff BP Diastolic Standing 90 mmHg lue lg cuff Respiratory Rate 20 /min Pain Level 9 back BMI (Body Mass Index) 46.3 kg/m2 Ejection Fraction 60-65% 10/16/2017 echo 10/12/2017 11:38am Height 64.25 inches 5'4.25" Weight 266.00 lb [...] BMI (Body Mass Index) 45.3 kg/m2 Results Test Date Facility Test Result H/L Range Note Laboratory test finding 08/13/2018 [facility] Hemoglobin A1c 5.2 5-7 Procedures Date Code Description Status 08/22/2018 40431 Polysomnography Sleep Staging 4+ Parameters Completed 12/28/2017 67526 Replace Duodenostomy Or Jejunostomy Tube Percutaneous Completed 10/22/2017 04843 Stress Test Completed 10/22/2017 47058 Myocardial Perfusion Imaging Tomographic (Spect) Completed Multiple Studies 10/16/2017 79476 ECHO Transthoracic, Real-Time 2D With Doppler And Color Completed Flow 10/16/2017 30757 ECHO Transthoracic, Real-Time 2D With Doppler And Color Completed Flow 10/12/2017 11509 EKG Tracing & Interpretation Completed 09/13/2017 11910 Colonoscopy Flexible W/Biopsy Completed 09/13/2017 31891 Endoscopy Upper GI Biopsy Completed 09/13/2017 40822039 Colonoscopy Completed Encounters Type Date Location Provider Dx Diagnosis Office Visit 08/13/[address] [facility] Internal Ayleen Bobby MD I10 Essential ( primary) 3:00p Medicine hypertension E11.9 Type 2 diabetes mellitus without complications F33.9 Major depressive disorder, recurrent, unspecified E83.42 Hypomagnesemia I69.398 Other sequelae of cerebral infarction Z85.01 Personal history of malignant neoplasm of esophagus Z68.38 Body mass index (BMI) 38.0-38.9, adult Office Visit 07/10/2018 9:30a [facility] Tiffanie Badillo, R06.83 [facility] R53.83 Other fatigue K21.9 Gastro-esophageal reflux disease without esophagitis E66.09 Other obesity due to excess calories Z68.38 Body mass index (BMI) 38.0-38.9, adult Office Visit 05/17/2018 [facility] Stevie Wells, C15.9 Malignant neoplasm 9:30a [facility], [facility] of esophagus, unspecified Office Visit 01/10/2018 [facility] Ste[facility] Wells, C15.9 Malignant neoplasm 10:00a [facility] of esophagus, unspecified [facility] K[facility] Other 12:18p Assocnia II, M.D. complications of Hospitalists esophagostomy C15.9 Malignant neoplasm of esophagus, unspecified E11.9 Type 2 diabetes mellitus without complications Office Visit 10/23/2017 3:00p [facility] Junior Nathan R06.00 Dyspnea , Of Juan Colin M.D., unspecified FACC, FASNC Office Visit 10/12/2017 11:20a Cardiology Junior Nathan I10 [facility] M.D., (primary) AT [facility], FASNC hypertension R06.00 Dyspnea, unspecified Plan of Treatment Future Appointment(s):11/06/2018 11:15 am - Flores Walker DNP, RN, DRESS DRAPER-BC at [facility]09/24/2018 4:00 pm - Ayleen Bobby MD at [facility] Internal Ioxecvpq37/02/2019 - Flores Walker DNP, RN, DRESS DRAPER-BCG47.33 Obstructive sleep apnea (adult) (pediatric)New Orders:[facility], Ordered: 09/17/18Comments:NPSG 08/22/18 AHI 7.2/hour, tRDI 25/hour, crissy oxygen 91%, no REM sleep, poor sleep efficiency at 67.1%. wt 225, BMI 38.6Follow up:6 weeksRecommendations:Continue PAP device, Benefitting and compliant with treatment. Cleaning Wipe off mask daily (baby wipe-no scent, or warm water) Clean mask, tubing, filter, and water chamber weekly in mild no scent dish soap and water. Hang to dry. If you have any sleepiness while driving you MUST avoid operating a vehicle or machinery. If you have difficulty with your equipment, or need to replace your mask or hoses, please contact your homecare agency. A weight change of 20 pounds or more may have an effect onyour equipment ; if you are experiencing problems please call for an appointment. If you have any further questions, please call the [facility] at .V99.37 Body mass index (BMI) 37.0-37.9, adultRecommendations:Avoid weight gain
--- OUTSIDE RECORDS SUMMARY | 2018-10-12 17:12 | XMS REPORT | Continuity of Care Document ---
:1965 External Reference #:[id number] Author Name Marlene Rush Care Team Providers Name Role Phone Ayleen Bobby MD Primary Care Physician Unavailable Payers Date Identification Numbers Payment Provider Subscriber Effective: 2016 Policy Number: [id number] Medicare Shireen Couch PayID: [id number] [address] [place] [address] Effective: 2011 Policy Number: [id number] Medicaid Shireen Couch PayID: [id number] [address] [place] [address] Advance Directives Description No Information Available Problems Active Problems Provider Date Essential hypertension Junior Colin M.D., [facility], Onset: 10/12/2017 FASNC Difficulty breathing Junior Colin M.D., [facility], Onset: 10/12/2017 FASNC Other complications of Daniel Williamson II, M.D. Onset: 12/28/2017 esophagostomy Malignant tumor of esophagus Daniel Williamson II, M.D. Onset: 12/28/2017 Type 2 diabetes mellitus Daniel Williamson II, M.D. Onset: 12/28/2017 Family History Date Family Member(s) Observation Comments General patient adopted and doesnt know famiy history Social History Type Date Description Comments Sex Unknown Marital Status Lives With children live with patient Occupation Disabled ETOH Use Denies alcohol use Tobacco Use Start: Unknown End: Patient is a former smoker Quit 1992 Unknown Recreational Drug Use Denies Drug Use Smoking Status Reviewed: 10/09/18 Patient is a former smoker Quit 1992 Exercise Type/Frequency Does not exercise Allergies, Adverse Reactions, Alerts Active Allergies Reaction Severity Comments Date Darvocet 10/12/2017 Benadryl 10/12/2017 Penicillin 10/12/2017 Phenobarbital 10/12/2017 Oxaliplatin 10/12/2017 Plexion 10/12/2017 Latex 10/12/2017 Bee Sting 10/12/2017 Peppers 10/12/2017 Medications Active Medications SIG Qnty Indications Ordering Date Provider Atorvastatin Calcium take 1 tablet at 90tabs E78.2 Ayleen Bobby MD 2018 20mg bedtime Tablets Lisinopril 1 by mouth every Unknown 5mg Tablets day Sertraline HCL 2 by mouth every 180tabs Ayleen Bobby MD 100mg day Tablets Vitamin D-3 take 1 tab by Unknown 5000Unit mouth daily Tablets Cranberry With Vitamin 1 by mouth twice Unknown C daily 4200mg Tablets Magnesium 2 by mouth every Unknown 400mg Tablets day Levothyroxine Sodium 1 by mouth every Unknown day 75mcg Tablets Omeprazole 1 by mouth twice Unknown 40mg Capsules daily DR Bianchi 2-Yonas use as directed Unknown 0.3mg/0.3ML Solution Auto-Inject Ibuprofen 4 by mouth as Unknown 200mg Tablets needed History Medications Tramadol HCL 2- tablet by mouth every Unknown - Unknown 50mg Tablets 6 hours as needed pain Medications Administered in Office Medication SIG Qnty Indications Ordering Provider Date Inj, Regadenoson, 0.1 MG Junior Colin M.D., 10/22/2017 Injection GO SOLORZANONC Technetium TC 99M Junior Colin M.D., 10/22/2017 Tetrofosmin, Per Unit Dose FACC, FASNC Up To 40 Millicuries Injection Technetium TC 99M Ica Nuclear Schedule 10/19/2017 Tetrofosmin, Per Unit Dose Up To 40 Millicuries Injection Immunizations Description No Information Available Vital Signs Date Vital Result Comment 10/09/2018 12:23pm Height 64 inches 5'4" Weight 217.00 lb Heart Rate 85 /min BP Systolic Sitting 128 mmHg BP Diastolic Sitting 90 mmHg Body Temperature 97.1 F O2 % BldC Oximetry 98 % BMI (Body Mass Index) 37.2 kg/m2 09/17/2018 2:51pm Height 64 inches 5'4" Weight [...] Date Facility Test Result H/L Range Note Lipid Profile 10/07/2018 [facility] Triglycerides 431 mg/dL 1 (Trig/Chol/HDL) [address] [place] [address] [phone] Cholesterol 294 mg/dL 2 HDL Cholesterol 41.1 mg/dL 3 LDL Cholesterol (SEE NOTE) mg/dL 4 Laboratory test 10/07/2018 [facility] TSH (Thyroid 1.29 mcIU/mL N 0.34-5.[address] [place]) [place] [address] [phone] LDL Cholesterol Direct 203 mg/dL 5 Laboratory test finding 08/13/2018 [facility] House Hemoglobin A1c 5.2 5-7 1 Desirable: <150 Borderline High: 150-199 High: 200-499 Very High: >500 2 Desirable: <200 Borderline High: 200-239 High: >239 3 Low: <40 Desirable: 40-60 High: >60 4 Unable to calculate LDL as triglyceride is > 400 5 Desirable: <100 Near Optimal: 100-129 Borderline High: 130-159 High: 160-189 Very High: >189 Procedures Date Code Description Status 08/22/2018 61493 Polysomnography Sleep Staging 4+ Parameters Completed 12/28/2017 13474 Replace Duodenostomy Or Jejunostomy Tube Percutaneous Completed 10/22/2017 71089 Stress Test Completed 10/22/2017 10916 Myocardial Perfusion Imaging Tomographic (Spect) Completed Multiple Studies 10/16/2017 10267 ECHO Transthoracic, Real-Time 2D With Doppler And Color Completed Flow 10/16/2017 03649 ECHO Transthoracic, Real-Time 2D With Doppler And Color Completed Flow 10/12/2017 17670 EKG Tracing & Interpretation Completed 09/13/2017 48877 Colonoscopy Flexible W/Biopsy Completed 09/13/2017 08831 Endoscopy Upper GI Biopsy Completed 09/13/2017 [id number] Colonoscopy Completed Encounters Type Date Location Provider Dx Diagnosis Office Visit 09/17/2018 [facility] Flores Walker, G47.33 Obstructive sleep 3:00p [facility] RN, CORN DETASSELER MACHINE OPERATOR-BC apnea (adult) Epic Radiant Analyst (pediatric) E66.9 Obesity, unspecified Z68.37 Body mass index (BMI) 37.0-37.9, adult Office Visit 08/13/2018 3:00p [facility] Internal Ayleen Kanu, I10 Essential ( primary) Medicine hypertension E11.9 Type 2 diabetes mellitus without complications F33.9 Major depressive disorder, recurrent, unspecified E83.42 Hypomagnesemia I69.398 Other sequelae of cerebral infarction Z85.01 Personal history of malignant neoplasm of esophagus Z68.38 Body mass index (BMI) 38.0-38.9, adult Office Visit 07/10/2018 9:30a [facility] Tiffanie Aby, R06.83 [facility] R53.83 Other fatigue K21.9 Gastro-esophageal reflux disease without esophagitis E66.09 Other obesity due to excess calories Z68.38 Body mass index (BMI) 38.0-38.9, adult Office Visit 05/17/2018 [facility] Stevie Wells, C15.9 Malignant neoplasm 9:30a [facility] , FACS of esophagus, unspecified Office Visit 01/10/2018 [facility] Stevie Wells C15.9 Malignant neoplasm 10:00a [facility] , FACS of esophagus, unspecified Office Visit 12/28/2017 [facility] Teri K94.39 Other 12:18p Assocnia II, M.D. complications of Hospitalists esophagostomy C15.9 Malignant neoplasm of esophagus, unspecified E11.9 Type 2 diabetes mellitus without complications Office Visit 10/23/2017 3:00p [facility] Junior Nathan R06.00 Dyspnea , Of Juan Colin M.D., unspecified [facility], [facility] Office Visit 10/12/2017 11:20a Cardiology Junior Nathan I10 [facility] Colin M.D., (primary) AT [facility] hypertension R06.00 Dyspnea, unspecified Plan of Treatment Future Appointment(s):04/10/2019 1:00 pm - Ayleen Bobby MD at [facility] Internal Uydhfcvz86/22/2019 11:15 am - Flores Walker DNP, RN, CORN DETASSELER MACHINE OPERATOR-BC at [facility]10/09/2018 - Ayleen Bobby MDG47.33 Obstructive sleep apnea (adult) (pediatric)Comments:Continue CPAPF33.9 Major depressive disorder, recurrent, unspecifiedComments:Continue same dose; refill sentE78.2 Mixed hyperlipidemiaNew Medication:Atorvastatin Calcium 20 mg - take 1 tablet at bedtimeFollow up:F/U 6 months; please get labwork prior to that
--- NOTE | 2018-10-12 17:16 | ED ---
Neurological HPI - HPI Summary HPI Summary: This patient is a 52 year old female brought in by ambulance to [facility] with a chief complaint of possible stroke since 1600 today. Patient states that she was watching YouTube at home when she felt a sharp pain on her cheek. When she went to touch it, the patient noticed that she couldnt feel her cheek at all. In addition, her vision also became blurry out of her left eye. The pain is rated 0/10 in severity. Symptoms aggravated by nothing. Symptoms alleviated by nothing. Patient denies chest pain, palpitations. Patient does not take blood thinners. - History of Current Complaint Chief Complaint: EDNeurologicalDeficit Stated Complaint: STROKE LIKE SYMPTOMS PER PT Time Seen by Provider: 10/12/18 17:00 Hx Obtained From: Patient Onset/Duration: Started hours ago, Still Present Timing: Constant Current Severity: Moderate Neurological Deficit Location: Facial - left Pain Scale Used: 0-10 Numeric Character: Numbness/Tingling, Sensory Loss Aggravating: Nothing Alleviating: Nothing Associated Signs and Symptoms: Positive: Negative - chest pain, palpitations - Additional Pertinent History Primary Care Physician: EVA - Allergy/Home Medications Allergies/Adverse Reactions: Allergies Allergy/AdvReac Type Severity Reaction Status Date / Time diphenhydramine Allergy Anaphylatic Verified 01/07/18 15:42 [From Benadryl] Shock latex Allergy blisters Verified 01/07/18 15:42 on skin Penicillins Allergy Rash Verified 01/07/18 15:42 phenobarbital Allergy Unknown Verified 01/07/18 15:42 Reaction Details propoxyphene Allergy See Comment Verified 01/07/18 15:42 [From Darvocet-N] Sulfa (Sulfonamide Allergy Rash Verified 01/07/18 15:42 Antibiotics) PMH/Surg Hx/FS Hx/Imm Hx Previously Healthy: No Endocrine/Hematology History: Reports: Hx Anticoagulant Therapy, Hx Diabetes, Hx Thyroid Disease - hypo Cardiovascular History: Reports: Hx Deep Vein Thrombosis - x3 in LUE, Hx Hypercholesterolemia, Hx Hypertension - TAKES MEDICATION Denies: Hx Pacemaker/ICD, Other Cardiovascular Problems/Disorders Respiratory History: Reports: Hx Asthma Denies: Other Respiratory Problems/Disorders GI History: Reports: Hx Gastroesophageal Reflux Disease, Other GI Disorders - CA OF ESOPH/ ESOPH REMOVED. 10/2017 History: Denies: Hx Renal Disease Musculoskeletal History: Reports: Hx Fibromyalgia Denies: Other Musculoskeletal History Sensory History: Reports: Hx Contacts or Glasses - glasses Denies: Hx Hearing Aid Opthamlomology History: Reports: Hx Contacts or Glasses - glasses Neurological History: Reports: Hx CVA, Hx Nerve Disease - fibromyalgia, Hx Seizures - with strobe lights, no meds, last one 3-4 yrs ago, Hx Transient Ischemic Attacks (TIA) - October 2017 Denies: Other Neuro Impairments/Disorders Psychiatric History: Reports: Hx Anxiety - on meds, Hx Depression - on meds Denies: Hx Panic Disorder - Cancer History Cancer Type, Location and Year: esophagus Hx Chemotherapy: Yes Hx Radiation Therapy: Yes - Surgical History Surgery Procedure, Year, and Place: [place]OM[place], 2007, [place]DER, 2009 , [place] ESOPHAGUS REMOVAL Hx Anesthesia Reactions: Yes - diff to wake up Infectious Disease History: Denies: Traveled Outside the [place] in Last 30 Days - Family History Known Family History: Positive: Other - No FHx of breast CA Family History: No FHx of breast CA - Social History Alcohol Use: None Hx Substance Use: No Substance Use Type: Reports: None Hx Tobacco Use: Yes Smoking Status (MU): Former Smoker Review of Systems Negative: Fever Positive: Blurred Vision Negative: Palpitations, Chest Pain Positive: Numbness All Other Systems Reviewed And Are Negative: Yes Physical Exam - Summary Physical Exam Summary: Appearance: well appearing, no pain distress Skin: warm, dry, reflects adequate perfusion Head/face: facial numbness. no ongoing pain in eyes. Eyes: blurred vision ENT: mucous membranes moist Neck: supple, non-tender Respiratory: CTA, breath sounds present Cardiovascular: RRR, pulses symmetrical Abdomen: non-tender, soft Bowel Sounds: present Musculoskeletal: normal, strength/ROM intact Neuro: normal, sensory motor intact, A&Ox3 Triage Information Reviewed: Yes Vital Signs Reviewed: Yes Diagnostics - Laboratory Result Diagrams: 10/12/18 17:10 10/12/18 17:10 Lab Statement: Any lab studies that have been ordered have been reviewed, and results considered in the medical decision making process. - Radiology CXR Radiology Interpretation Completed By: Radiologist Summary of Radiographic Findings: CXR reveals, per radiologist, IMPRESSION: NO ACTIVE CARDIOPULMONARY DISEASE. ED physician has reviewed this radiology report. - CT CT Brain CT Interpretation Completed By: Radiologist Summary of CT Findings: CT Brain reveals, per radiologist, IMPRESSION: NO ACUTE INTRACRANIAL PATHOLOGY. ED physician has reviewed this radiology report. CTA head and neck CT Interpretation Completed By: Radiologist - IMPRESSION: 1. No significant stenosis of the extracranial carotid arteries bilaterally. 2. A dominant right vertebral artery is identified. 3. Additional findings described above. Course/Dx - Course Course Of Treatment: Nurse's notes reviewed. Patient presents with neurologic symptoms consisting of left facial numbness and peripheral vision blurriness in the left eye. Vitals are stable. Her NIH stroke score is 1-2. Tele neurology evaluation was performed and tPA was not recommended. A CTA was performed at their recommendation and was negative for large vessel occlusion. The hospitalist was contacted and will admit the patient. She has received aspirin and IV fluids and is somewhat better though still has persistent symptoms. - Differential Dx Differential Diagnoses Neuro: Positive: Other - CVA, TIA, CRAO, CRVO, conversion disorder - Diagnoses Provider Diagnoses: CVA (cerebral vascular accident), Blurred vision, left eye, Left facial numbness - Physician Notifications Discussed Care Of Patient With: Idalia Abraham - Neurologist Time Discussed With Above Provider: 17:34 - We discussed patient care with Dr. Abraham (Neurologist) at 1734 and they agreed to talk to the patient. Instructed by Provider To: Admit As Inpatient - We discussed patient care with Dr. Ruano (Hospitalist) at 1830 and he accepted the patient for admission. - Critical Care Time Critical Care Time: 30-74 min Discharge - Sign-Out/Discharge Documenting (check all that apply): Patient Departure - though she might just be Patient Received Moderate/Deep Sedation with Procedure: No - Discharge Plan Condition: Fair Disposition: ADMITTED TO [facility] Referrals: Ayleen Bobby MD [Primary Care Provider] - - Billing Disposition and Condition Condition: FAIR Disposition: Admitted to [facility] - Attestation Statements Document Initiated by Scribe: Yes Documenting Scribe: Devin Beavers Provider For Whom Smith is Documenting (Include Credential): López Mcwilliams Attestation: Devin Kessler, scribed for López Goldstein on 10/12/18 at 1904. Scribe Documentation Reviewed: Yes Provider Attestation: The documentation as recorded by the Devin mcwilliams accurately reflects the service I personally performed and the decisions made by me, López Goldstein Status of Scribe Document: Viewed
[2018-10-12 17:18] LABS: ABS Basophils 0 10^3/ul (0-0.2); ABS Eosinophils 0.1 10^3/ul (0-0.6); ABS Lymphocytes 0.7 10^3/ul (1.0-4.8); ABS Monocytes 0.4 10^3/ul (0-0.8); ABS Neutrophils 5.7 10^3/ul (1.5-7.7); ABS Nucleated RBC 0 10^3/ul; Eosinophil % 1.7 %; Hematocrit 42 % (33-41); Hemoglobin 14.4 g/dL (12.0-16.0); Lymphocyte % 9.7 %; Mean Corpuscular HGB Conc 34 g/dL (31-36); Mean Corpuscular Hemoglobin 29 pg (27-31); Mean Corpuscular Volume 85 fL (80-97); Mean Platelet Volume 6.6 fL (7.4-10.4); Nucleated Red Blood Cells % 0; Platelet Count 216 10^3/uL (150-450); Red Blood Count 4.95 10^6 /uL (3.70-4.87); Red Cell Distribution Width 14 % (10.5-15); White Blood Count 6.9 10^3/uL (3.5-10.8)
[2018-10-12 17:34] LABS: ALT 20 U/L (7-52); Albumin 4.4 g/dL (3.2-5.2); Albumin/Globulin Ratio 1.6 (1-3); Alkaline Phosphatase 132 U/L (34-104); BUN/Creatinine Ratio 17.3 (8-20); Blood Urea Nitrogen 17 mg/dL (6-24); CO2 Carbon Dioxide 24 mmol/L (22-32); Calcium 9.6 mg/dL (8.6-10.3); Chloride 110 mmol/L (101-111); Cholesterol 282 mg/dL; EGFR African American 72.4 (>60); EGFR Non-African American 59.8 (>60); Globulin 2.7 g/dL (2-4); Glucose 98 mg/dL (70-100); HDL Cholesterol 39.7 mg/dL; LDL Cholesterol 191 mg/dL; Sodium 142 mmol/L (135-145); Total Protein 7.1 g/dL (6.4-8.9); Triglycerides 255 mg/dL
[2018-10-12] MEDS ORDERED: Aspirin 81 mg CHEW TAB* 81 MG TAB.CHEW PO ONE (17:48)
[2018-10-12] MEDS ORDERED: Iodixanol* (CONTRAST) 320 MG/ML 100 ML SDV IV ONE (17:50)
[2018-10-12 18:25] LABS: Activated Partial Thrombo Time 32.9 seconds (26.0-36.3); INR 0.98 (0.82-1.09)
[2018-10-12 18:51] LABS: Anion Gap 8 mmol/L (2-11)
[2018-10-12 19:23] LABS: Potassium Redraw 3.9 mmol/L (3.5-5.0)
[2018-10-12] MEDS ORDERED: Acetaminophen TAB* 325 MG PO PRN (20:23)
[2018-10-12] MEDS ORDERED: Albuterol 2.5 MG/3 ML NEB.SOL* (0.083%) INH PRN (20:27)
[2018-10-12] MEDS ORDERED: Clopidogrel TAB* 75 MG PO ONE (20:28)
[2018-10-12] MEDS ORDERED: Atorvastatin* 80 MG TAB PO ONE (21:00)
[2018-10-12] MEDS ORDERED: Enoxaparin(*) 40 MG/0.4 ML SYR SUBCUT SCH (21:30)
[2018-10-12] MEDS ORDERED: Atorvastatin* 80 MG TAB PO SCH (21:30)
[2018-10-12 23:00] LABS: Magnesium 2.5 mg/dL (1.9-2.7)
[2018-10-12 23:15] LABS: TSH (Thyroid Stimulating Horm) 2.38 mcIU/mL (0.34-5.60)
--- NOTE | 2018-10-13 02:40 | HP ---
CC: Dr. Bobby; Dr. Gómez* HISTORY AND PHYSICAL: DATE OF ADMISSION: 10/12/18 PROVIDER: Elton Hylton NP PRIMARY CARE PROVIDER: Dr. Bobby. ATTENDING PHYSICIAN WHILE IN THE HOSPITAL: Dr. Meka Landrum* (dictated by Elton Hylton NP). CHIEF COMPLAINT: Left sided facial numbness, left eye blurred vision. HISTORY OF PRESENT ILLNESS: Ms. Couch is a 52-year-old female with the past medical history significant for CVA approximately 1 year ago after esophageal resection for cancer; diabetes; hypertension; fibromyalgia; depression; hypothyroidism; history of DVT/PE; questionable history of seizures, not on medications; hyperlipidemia, currently not on medication, who reports that she started feeling left facial numbness that started approximately 4 o'clock today and blurred vision in the left eye. The patient denies any other symptoms. Denies any weakness on one side. Denies any sensation loss on either side. Denies any recent fever, chills, nausea, vomiting, or diarrhea. Denies any headache, dizziness, or loss of consciousness. Denies any head injuries. Denies any cough, hemoptysis, or shortness of breath. No nausea, vomiting, diarrhea, or abdominal pain. Denies any gross hematuria or dysuria. She does complain of left facial numbness and left eye blurriness. She denies any difficulty swallowing, arthralgias, myalgias, rashes, lesions, or open sores. Denies any psychosis or anxiety. While in the emergency room, the patient had a Code Uriostegui call and she had an NIH of 2. [place] was called and the patient was not given tPA as her stroke was too mild. Per [facility], she did have a CT of the head and neck , which showed mild stenosis, but no bleeds or masses. Due to the left facial numbness and symptoms, we were asked to see and evaluate her for admission. PAST MEDICAL HISTORY: 1. CVA approximately 1 year ago after esophageal resection for cancer. The patient reports that in October 2017, she had a CVA and she had total left-sided weakness and had to go to rehab. She reports she was also unable to swallow and did have a feeding tube. The patient reports that she is back to 90% and only has some residual arm numbness that radiates to her index and second finger from the first CVA. 2. Esophageal cancer with resection, status post chemo and radiation in June 2017. 3. Diabetes, not currently taking medications. 4. Hypertension, currently takes lisinopril, unknown dose. 5. Fibromyalgia. 6. Depression, for which she takes sertraline 200 mg p.o. daily. 7. Hypothyroid, not currently on any medication. 8. Questionable history of seizures, not currently on any medications. 9. History of DVT, not currently on new medications, thought to have been provoked from a PICC line in her left arm. PAST SURGICAL HISTORY: 1. The patient had esophageal resection for a cancer. 2. Cholecystectomy. 3. Tubal ligation. 4. Hysterectomy. HOME MEDICATIONS: Include: 1. Omeprazole 40 mg p.o. daily. 2. Sertraline 200 mg p.o. q.p.m. 3. Atorvastatin 20 mg p.o. daily, has not started yet. 4. Vitamin D3 5000 units daily. 5. Ventolin HFA inhaler as needed for shortness of breath. ALLERGIES: No known drug allergies. FAMILY HISTORY: Unknown as the patient is adopted. SOCIAL HISTORY: The patient reports that she quit smoking in 1992. Prior to that she smoked half a pack a day for approximately 10 years. She denies any alcohol or illicit drug use. She is . Surrogate decision making on the event she is unable to make her own decisions is her mother. She is a full code. REVIEW OF SYSTEMS: A 14-point review of systems, all pertinent positives are mentioned in the HPI, otherwise were negative. PHYSICAL EXAMINATION GENERAL: At this time, Ms. Couch is a 52-year-old female. She is alert and oriented, sitting on the stretcher in the emergency room. She does not appear to be in any acute distress. There is no facial asymmetry noted. HEENT: Head is atraumatic and normocephalic. Eyes: EOMs are intact. Sclerae anicteric and not pale. Oral mucosa appeared to be moist. NECK: Supple. LUNGS: Clear to auscultation bilaterally. No wheezes, rales or rhonchi. CARDIAC: S1 and S2, regular rate and rhythm. No murmurs, rubs, or gallops. ABDOMEN: Soft and nontender. Bowel sounds are present x4. EXTREMITIES: She is able to move all 4 extremities. There is no clubbing or cyanosis. SKIN: Intact. NEUROLOGIC: She is awake, alert, and oriented x3. Cranial nerves II through XII are grossly intact. She does have decreased sensation on the left face below the brow line, below her eye. She does report blurred vision in the left eye, but visual confrontation is intact. Ybiyol-hc-vrus is intact. Handgrips are equal. Push-pull is equal. Bilateral lower extremities strength is intact. Sensation is intact to lower extremities. She does have chronic diminished sensation on the top of her left arm to her first and second fingers since her previous CVA. Smile is equal. Tongue is midline. Speech is clear. Thought process is intact. There are no gross focal deficits. DIAGNOSTIC STUDIES AND LABORATORY DATA: WBCs are 6.9, RBCs 4.95, hemoglobin 14.4, hematocrit was 42, platelet count was 216. INR was 0.98. Sodium 142, potassium 3.9, chloride was 110, carbon dioxide was 24, anion gap was 8, BUN was 17, creatinine 0.98, glucose was 98, lactic acid was 0.8, calcium 9.6. ASTs were 15, ALTs were 20, alkaline phosphatase was 132. Troponin was 0.02. Triglycerides were 255, cholesterol was 282, LDL was 191, HDL was 39. TSH is currently pending as well as the magnesium level. She had a CT of the brain, no acute intracranial pathology. She had a chest x-ray, radiologist's impression: No active cardiopulmonary disease. She had an electrocardiogram, which showed sinus rhythm at a rate of 95. No ST or T-wave changes. She had a CTA of the head and neck, radiologist's impression: Stenosis is visualized involving the right M2 and M3 segments on the right middle cerebral artery, mild stenosis involving the A2 and A3 segment of the bilateral anterior cerebral arteries. A dominant right vertebral artery is identified. The left vertebral artery is diffusely small in caliber without occlusion. No aneurysm. Right middle cerebral artery stenoses are visualized involving the right M2 and M3 segments of the middle right cerebral artery. No significant stenosis of the right M1 segment and no aneurysm. Vasculature of right common artery, no significant stenosis, no dissection, no occlusion. Right internal carotid artery extracranial segment is patent with no significant stenosis, no dissection or occlusion. Right external carotid artery, no occlusion or significant stenosis. Right vertebral artery, a dominant right vertebral artery is identified. No significant stenosis or occlusion. Impression: There is no significant stenosis of the extracranial carotid arteries bilaterally. A dominant right vertebral artery is identified. ASSESSMENT AND PLAN: Ms. Couch is a 52-year-old female with a past medical history significant for cerebrovascular accident after esophageal resection for cancer, history of deep venous thrombosis and pulmonary embolism, questionable diabetes, hypertension, hypothyroidism, depression, fibromyalgia who presented to the emergency room with acute onset of left facial numbness that started at 4 p.m. A Code Uri[place] was called. Her NIH was 2 and it was determined that her stroke symptoms were too mild to require tPA. She will be admitted under observation for: 1. Left facial numbness. We will rule out transient ischemic attack versus cerebrovascular accident. I will get an MRI of the brain. I will get a transthoracic echocardiogram with bubble study. She will be placed on Plavix 75 mg p.o. daily, aspirin 81 mg p.o. daily, and atorvastatin 80 mg p.o. daily. I have asked Neurology to consult on this patient as well. I did send a consult Dr. Menjivar this evening who also recommended the patient have bilateral ultrasounds to rule out DVT of the lower extremities due to her history of CVA in the past. The patient also reports that she has blurred vision in the left peripheral. She will continue with neuro checks. She will be placed on telemetry to rule out any arrhythmias. If this turns out to be a subsequent stroke, the patient may require hypercoagulable workup. She is currently following up Dr. Gómez as she does have a recent history of esophageal cancer. 2. Hypertension. The patient does currently takes lisinopril for her hypertension, unknown dose. 3. Hyperlipidemia. The patient reports that she had a prescription sent in for atorvastatin, but she has not started yet. I will place her on atorvastatin 80 mg p.o. daily as her LDL was 191, well above the goal of 70. 4. History of deep venous thrombosis. I will place the patient on Lovenox subcu for DVT prophylaxis. She is currently not on any anticoagulation for history of DVT. 5. Hypothyroidism. The patient reports that she has had hypothyroidism in the past. She is currently not on any medication. 6. Depression. I will continue her sertraline 200 mg p.o. daily. The patient reports that she recently had this dose adjusted, approximately 6 weeks ago. 7. Left facial tic. On reevaluation of the patient, the patient was noted to have a left facial tic. I am getting an MRI of the brain. The patient does not feel this tick. It is unclear as the cause to the tic at this point. Within the differential, this could be a focal seizure. 8. History of esophageal cancer. The patient is currently in remission. 9. FEN: She will have heart healthy diet. 10. Code status: She is a full code. 11. DVT prophylaxis: She will have Lovenox subcu. TIME SPENT: Time spent on this admission was approximately 60 minutes, greater than half of that time was spent at the bedside reviewing events leading thus far to her hospitalization, performing my physical exam, and reviewing my plan of care. I have discussed this with my attending Dr. Meka Landrum; she is in agreement with my plan. ELTON HYLTON, LEASING PROFESSIONAL [id number]/[facility] #: [id number] ONDINA
[2018-10-13 06:28] LABS: ABS Basophils 0 10^3/ul (0-0.2); ABS Eosinophils 0.1 10^3/ul (0-0.6); ABS Lymphocytes 0.8 10^3/ul (1.0-4.8); ABS Monocytes 0.4 10^3/ul (0-0.8); ABS Neutrophils 3.8 10^3/ul (1.5-7.7); ABS Nucleated RBC 0 10^3/ul; Eosinophil % 2.7 %; Hematocrit 38 % (33-41); Hemoglobin 13.1 g/dL (12.0-16.0); Lymphocyte % 15.5 %; Mean Corpuscular HGB Conc 34 g/dL (31-36); Mean Corpuscular Hemoglobin 29 pg (27-31); Mean Corpuscular Volume 85 fL (80-97); Mean Platelet Volume 6.7 fL (7.4-10.4); Nucleated Red Blood Cells % 0.1; Platelet Count 187 10^3/uL (150-450); Red Blood Count 4.52 10^6 /uL (3.70-4.87); Red Cell Distribution Width 15 % (10.5-15); White Blood Count 5.1 10^3/uL (3.5-10.8)
[2018-10-13 06:51] LABS: BUN/Creatinine Ratio 15.9 (8-20); Calcium 9.4 mg/dL (8.6-10.3); EGFR African American 88.9 (>60); EGFR Non-African American 73.5 (>60); Potassium 3.8 mmol/L (3.5-5.0)
[2018-10-13] MEDS ORDERED: Aspirin 81 mg CHEW TAB* 81 MG TAB.CHEW PO SCH (09:00)
[2018-10-13] MEDS ORDERED: Clopidogrel TAB* 75 MG PO SCH (09:00)
[2018-10-13] MEDS ORDERED: Pantoprazole TAB * 40 MG TAB PO SCH (09:00)
--- NOTE | 2018-10-13 12:55 | ECHO ---
*[facility]* [place] [address] Fax #: [phone] Transthoracic Echocardiogram Patient: Iza, Height: 64 in / Shireen Smart 162.6 cm : 1965 Weight: 215.6 lb / Study Date: 10/13/2018 98 kg Age: 52 BP: 124 / 87 Gender: F BMI/BSA: 37.1 kg/m^2 HR: 74 bpm / 2.02 m^2 *Urinalysis Technician: * Erin Wilkins *Referring Physician: * Naya Hylton *Reading Physician: * Junior Colin Indications: TIA. History: Esophageal cancer and resection, chemotherapy, radiation, DVT/PE. Cerebrovascular accident. Risk factors: Current tobacco use. Hypertension. Diabetes mellitus. Dyslipidemia. Conclusions Summary: 1. Left ventricle: The cavity size is normal. Systolic function is normal. The estimated ejection fraction is 50-55%. Wall motion is normal; there are no regional wall motion abnormalities. 2. Right ventricle: The cavity size is mildly dilated. Systolic function is low normal. 3. Functionally benign heart valves. 4. Atrial septum: Bubble study was negative A PFO is not demonstrated by color Doppler or agitated saline contrast. 5. Impressions: No previous study was available for comparison. Study data: Transthoracic echocardiogram. Procedure: Transthoracic echocardiography was performed. Image quality was fair. A bubble study was performed. Images 74 and 75. Complete 2D, spectral Doppler, and color flow Doppler. Location: Bedside. Patient status: Inpatient. Patient room number: 431. Rhythm: Normal sinus rhythm. Findings Left ventricle: The cavity size is normal. Systolic function is normal. The estimated ejection fraction is 50-55%. Wall motion is normal; there are no regional wall motion abnormalities. There is no consistent Doppler evidence of clinically significant diastolic dysfunction. Right ventricle: The cavity size is mildly dilated. Systolic function is low normal. Left atrium: The atrium is normal in size. Right atrium: The atrium is normal in size. Atrial septum: Bubble study was negative A PFO is not demonstrated by color Doppler or agitated saline contrast. Mitral valve: The leaflets are normal thickness. There is no significant regurgitation. The peak diastolic gradient is 3.8 mm Hg. Aortic valve: The valve is trileaflet. The leaflets are normal thickness. There is no evidence of stenosis. There is no significant regurgitation. The ratio of LVOT to aortic valve peak velocity is 0.83. The ratio of LVOT to aortic valve mean velocity is 0.8. The mean systolic gradient is 3.0 mm Hg. The peak systolic gradient is 5.0 mm Hg. Tricuspid valve: The valve is structurally normal. There is no regurgitation. Pulmonic valve: Not well visualized. There is no evidence of stenosis. There is no significant regurgitation. The peak systolic gradient is 2.0 mm Hg. Aorta: Aortic arch: The aortic arch is appears normal. The aortic root is not dilated. Pericardium: There is no significant pericardial effusion. Pulmonary arteries: Not well visualized. Systemic veins: Inferior vena cava: The vessel is normal in size. The respirophasic diameter changes are in the normal range (>= 50%). Measurements Left ventricle Value Ref Aortic valve Value Ref QUAN, LAX 3.8 cm 3.8 - 5.2 Janet diam, ED 1.9 cm ---- ESD, LAX 2.9 cm 2.2 - 3.5 Peak v, S 1.11 m/sec ---- FS, LAX (L) 25 % 27 - 45 VTI, S 23.5 cm ---- PW, ED, LAX (H) 1.0 cm 0.6 - 0.9 Mean grad, S 3.0 mm Hg ---- EF (L) 50 % 54 - 74 Peak grad, S 5.0 mm Hg ---- E', lat janet, TDI (L) 9.4 cm/sec >=10.0 E/e', lat janet, 10 Mitral valve Value Ref TDI Peak E 0.97 m/sec ---- E', med janet, TDI (L) 5.6 cm/sec >=7.0 Peak A 1.03 m/sec ---- E/e', med janet, 17 Decel time 201 ms ---- TDI Peak grad, D 3.8 mm Hg ---- E', avg, TDI 7.5 cm/sec Peak E/A ratio 0.9 ---- E/e', avg, TDI 13 <=14 Pulmonic valve Value Ref LVOT Value Ref Peak v, S 0.75 m/sec ---- Peak ajay, S 0.92 m/sec Peak grad, S 2.0 mm Hg ---- Mean grad, S 2 mm Hg Aortic root Value Ref Ventricular septum Value Ref Root diam 2.9 cm <4.2 IVS, ED, LAX (H) 1.1 cm 0.6 - 0.9 Aortic arch Value Ref Right ventricle Value Ref Arch diam 2.8 cm ---- QUAN, LAX 2.2 cm QUAN minor ax, A4C 2.3 cm 1.9 - 3.5 Decending aorta Value Ref mid Annemarie peak ajay 0.67 m/sec ---- Left atrium Value Ref Inferior vena cava Value Ref AP dim, ES 3.00 cm 2.70 - Diam 1.7 cm ---- 3.80 ML dim, A4C 3.0 cm SI dim, A4C 5.5 cm Vol/bsa, ES, A/L (L) 15 ml/m^2 16 - 34 Right atrium Value Ref SI dim, ES 4.9 cm 3.4 - 5.3 ML dim, ES, A4C 3.4 cm 2.6 - 4.4 Estimated RAP 8 mm Hg Legend: (L) and (H) zaira values outside specified reference range. Prepared and electronically signed by Junior Colin 10/13/2018 12:54
--- NOTE | 2018-10-13 13:38 | CONS ---
CC: Ayleen Bobby MD; Dr. Vijay Zhang* CONSULTATION REPORT: DATE OF CONSULT: 10/13/18 LOCATION: She is currently in 431 bed 1. PRIMARY CARE PROVIDER: Ayleen Bobby MD. REASON FOR CONSULTATION: Acute onset of left face numbness. HISTORY OF PRESENT ILLNESS: Ms. Couch is a very nice 52-year-old female who has a history of esophageal cancer, status post surgery with initial PEG tube, but subsequent anastomosis. She has been seizure free now for over a year. She also has a history of a stroke at about that time when she developed a DVT in her left upper extremity from a PICC line. She states that the stroke was from that. She also has a history of hypertension, diabetes, fibromyalgia, depression, hypothyroidism, questionable seizures in the past, hyperlipidemia. She was not on aspirin when this happened, she was not on any anticoagulation and she was not on the statin, although she states that she was started on a statin last week, but has not been able to get it. She states at baseline she has some very mild numbness in the left forearm on the dorsal surface as well as the fact that her digits 2 and 3 on the left hand do not work as well. She is a right-handed female. She denies any recent illnesses, travel, fevers, chills, nausea, vomiting, dysuria, frequency, urgency, shortness of breath, chest pain. She denies any headaches any vision loss, although she does note some blurry vision in the left eye. She denies any problem swallowing or speaking, no word finding difficulties. She states that the facial numbness came on at around 4 p.m. yesterday, it lasted until she went to bed last night and then subsequently resolved. This morning when she woke up she feels that she is back to her baseline with mild residual post-stroke symptoms from her previous stroke. In the ER yesterday, a nikky ray was called, Marta was consulted but did not feel that she was a good tPA candidate as her NIH stroke scale was 2. STUDIES DONE: 1. Brain MRI showed no acute DWI/ADC map changes. No evidence of acute ischemia. I reviewed the films. No evidence of hemorrhage. 2. CT angiogram of the head showed several areas of stenosis in the right M2, M3 segments of the MCA and some mild stenosis involving A2, A3 segments bilaterally. No obvious aneurysms. No large vessel occlusion. Right vertebral artery is small in caliber with right vertebral dominant. Basal artery is patent. 3. CT of the head done yesterday in the ER shows no acute changes. No hemorrhage. 4. Echocardiogram was done today, results are pending. The patient denies any redness, swelling or pain in her lower extremities. She denies any other history of bleeding disorders or hypercoagulable condition. She has had no recent trauma. No head injury. No falls. She has otherwise been in her usual state of health. PAST MEDICAL HISTORY: As noted above. PAST SURGICAL HISTORY: Includes the esophageal resection and chemotherapy and radiation in June 2017, PEG tube placement at that time, subsequent reanastomosis. The patient has also had a cholecystectomy, tubal ligation, hysterectomy. HOME MEDICATIONS: Includes: 1. Sertraline 200 mg p.o. q.p.m. 2. Vitamin D3 5000 units daily. 3. Ventolin inhaler. 4. Atorvastatin 20 mg p.o. daily which was prescribed last week, she has not started it. 5. Omeprazole 40 mg p.o. daily. ALLERGIES: No known drug allergies. FAMILY HISTORY: The patient is adopted. SOCIAL HISTORY: Prior smoking, quit in 1992, she was smoking half a pack a day for 10 years prior to that. No alcohol or drug use. She is . REVIEW OF SYSTEMS: A 14-organ systems as noted above, otherwise negative. PHYSICAL EXAM: Vital Signs: Temp of 97.6, pulse in the 70s to 90s, respiratory rate 16 to 17, pulse ox 94% to 97%, blood pressure 140/90 to 124/87 to 131/78. In general, she is a well-nourished, well-developed obese female, in no acute distress. She is lying in the hospital bed. She is pleasant, well dressed, well groomed. HEENT: She is normocephalic, atraumatic. Sclerae are anicteric. Mucous membranes are moist. Oropharynx is clear. Nares are patent. Neck is supple. No thyromegaly. No carotid bruits. No meningismus. Chest: Clear to auscultation bilaterally. Cardiovascular: Regular rate and rhythm without murmurs. Abdomen: Nontender, nondistended. Extremities: No clubbing, cyanosis or edema. There are no palpable cords. There is no redness in her arms or legs. No pain. Skin is warm and dry. Neurologic Exam: She is awake, alert, oriented x3. Her speech is fluent. There is no dysarthria. Repetition is intact. Recall of recent and remote events is intact. Vocabulary is intact. Her mood is dysthymic. Affect, mood congruent. Cranial nerves II through XII: Pupils are equal, round and reactive to light and accommodation. Extraocular muscles are intact. Visual terry are full. There is no nystagmus, no ptosis. No diplopia. Face is symmetric. Facial sensation is back to baseline, no deficits. Hearing is intact bilaterally. Palate rises symmetrically. Tongue is midline. Motor exam 5/5 throughout in the upper and lower extremities with normal tone. She does have mild drift in the left upper extremity. DTRs are 1+ and symmetric in the upper extremities, 1+ and symmetric at the patella, absent at the ankles. She has mildly downgoing on the left, equivocal on the right. Sensation is intact to light touch and pinprick throughout except for an area over the dorsal surface of her left arm. Rapid alternating movements, cwevra-[id number]-begb are intact. No tremors noted. Gait was not tested at this time. LABORATORY DATA: CBC with diff that was essentially normal with an MPV of 6.7. INR 0.98, PTT of 32.9. Basic metabolic panel this morning normal with glucose of 113. Yesterday, alk phos of 132. Triglycerides 255, cholesterol 282, LDL 191, HDL 39.7, TSH of 2.38. Liver enzymes are normal. ASSESSMENT AND PLAN: Ms. Couch is a 52-year-old female with a history of esophageal cancer status post resection, status post chemo and radiation in June 2018, now in remission; history of prior stroke at around that time. She states after her PICC line, developed deep vein thrombosis in the left arm. History of questionable seizures, although no seizure activity reported. History of hypertension, fibromyalgia, diabetes, depression, hypothyroidism, and no history of hypercoagulable state. History of hyperlipidemia, she has not been on statin, although it was prescribed last week, she has not filled it. She developed facial numbness starting at approximately 4 p.m. yesterday with some blurry vision in the left eye. No weakness appreciated. Her facial numbness since resolved with only residual numbness at the left arm which was old from her prior stroke. She currently has no symptoms and feels back to her baseline. At this point, I would recommend the followin. Start her on aspirin and Plavix for 30 days and then stop the Plavix and continue aspirin 81 mg daily. If there is a GI reason, she cannot tolerate the aspirin, then you can stop the aspirin and start Plavix 75 mg daily. 2. 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 3. She reports a history of diabetes, her blood sugar here has been slightly elevated nonfasting. I would recommend following this and controlling tightly. 4. Blood pressure again tight control overtime. 5. She is a nonsmoker. 6. She has a history of PICC line deep vein thrombosis. No reported history of patent foramen ovale but her echocardiogram is pending. Certainly, if she has evidence of a patent foramen ovale, then she would need a cardiology evaluation for possible cryptogenic stroke, could consider an outpatient 30-day monitor as well although she has no history of atrial fibrillation. I would also recommend given her age that she have a full hematologic workup with Hematology to rule out any hypercoagulable state. It is possible that around the time of her cancer she was in a hypercoagulable state due to disease, which may have contributed to her stroke as well. I see no evidence for now to put her on anything more than dual antiplatelet. I would like to see her back in my clinic in 8 to 12 weeks. She knows to return to the ER immediately should she develop any new stroke-like symptoms. If her lower extremity Dopplers are negative, her echocardiogram shows no evidence of patent foramen ovale, then I think it is okay for her to go home today with close followup. Thank you for the opportunity to participate in the care of this very interesting patient. [id number]/[facility] #: [id number] ONDINA
[2018-10-13 14:35] LABS: Urine Appearance Cloudy; Urine Bilirubin Negative (Negative); Urine Blood Negative (Negative); Urine Color Yellow; Urine Glucose Negative (Negative); Urine Ketones Negative (Negative); Urine Nitrite Negative (Negative); Urine Protein Negative (Negative); Urine Specific Gravity 1.015 (1.010-1.030); Urine Urobilinogen Negative (Negative)
[2018-10-13 15:55] VITALS: BP 112/71
[2018-10-13] MEDS ORDERED: Sertraline* 100 MG TAB PO SCH (18:00)
--- NOTE | 2018-10-13 22:20 | DS ---
CC: Dr. Bobyb; Dr. Gómez* DISCHARGE SUMMARY: DATE OF ADMISSION: 10/12/18 DATE OF DISCHARGE: 10/13/18 PROVIDER: Oumar Varner NP ATTENDING PHYSICIAN: Dr. Douglas* (report dictated by Oumar Varner NP). PRIMARY CARE PROVIDER: Dr. Bobby. ONCOLOGIST: Dr. Gómez. DISCHARGE DIAGNOSIS: Left side facial numbness, left eye blurriness, possible transient ischemic attack. SECONDARY DIAGNOSES: 1. History of cerebrovascular accident approximately 1 years ago after esophageal resection for cancer. 2. History of esophageal cancer resection, status post chemo and radiation in June 2017. 3. History of type 2 diabetes, currently on no medication. Hemoglobin A1c 5.4% . 4. Hypertension. 5. Fibromyalgia. 6. Depression. 7. History of hypothyroidism, currently not on medication. TSH is 2.38. 8. History of seizures, currently not on any medications. 9. History of deep venous thrombosis, thought to be provoked from a PICC line in her left arm. DISCHARGE MEDICATIONS: 1. Omeprazole 40 mg p.o. daily. 2. Zoloft 20 mg p.o. q.p.m. 3. Atorvastatin 40 mg p.o. daily. 4. Vitamin D3 of 5000 units p.o. daily. 5. Ventolin HFA inhaler p.r.n. shortness of breath. 6. Aspirin 81 mg p.o. daily. New medication: Plavix 75 mg p.o. daily for 30 days, then stop. HISTORY OF PRESENT ILLNESS AND HOSPITAL COURSE: Please see history and physical by Naya Hylton NP, for full admission details. In summary, this is a 52-year- old female with a past medical history as stated above who presented to the emergency department on 10/12/18 with complaints of left-sided facial numbness and left eye blurred vision which started several hours before coming to the emergency department for further evaluation. She denied any other accompanying symptoms. In the emergency department, the patient's NIH score was 2. Marta was called and the patient was not given tPA. The patient underwent a head and neck CTA which showed mild stenosis involving the A2 and A3 segments of the bilateral anterior cerebral arteries as well as stenoses are visualized involving the right M2 and M3 segments of the right middle cerebral artery. Per radiologist's read, there is no significant stenosis of the extracranial carotid arteries bilaterally and a dominant right vertebral artery is identified. CT of the brain showed no acute intracranial pathology. MRI of the brain showed no acute intracranial pathology. She was seen by neurologist, Dr. Grene, in consultation who assessed that the patient most likely had a TIA. She was started on aspirin and Plavix in which plan will be Plavix for 30 days and stop the Plavix and continue aspirin 81 mg only. Recommendations from neurologist is also to continue atorvastatin with an increased dose of 40 mg p.o. daily up from 20. She underwent an Doppler of lower extremities which were negative for DVT. Echocardiogram was performed with bubble study showing no PFO. Conclusion: "1. Left ventricle: The cavity size is normal. Systolic function is normal. The estimated ejection fraction is 50% to 55%. Wall motion is normal, there are no regional wall motion abnormalities. 2. Right ventricle: The cavity size is mildly dilated. Systolic function is low. 3. Functionally benign heart valves. 4. Atrial septum: Bubble study was negative. A PFO was not demonstrated by color Doppler and agitated saline contrast. 5. No previous studies were available for comparison." The patient has done well throughout her hospitalization, her left-sided numbness and blurriness resolved within a few hours and has not returned. Discharge instructions were reviewed with the patient by myself. The plan was _ . Dr. Green did recommend the patient undergo a hypercoagulable workup due to her age of under 50 with her first stroke even though this could be secondary to at the time she may had been more hypercoagulable due to her cancer. She does follow with Dr. Gómez as an outpatient and has a followup appointment within the next week or two and recommendation is to have a hypercoagulable workup if this has not been done before in the past. The patient is unclear if it was performed previously. The patient is stable for discharge home. She is back to her baseline. Her CBC and CMP are unremarkable. She has remained afebrile throughout hospitalization and hemodynamically stable. DISCHARGE PLAN: 1. Follow up with primary care provider within 5 to 7 days. 2. Follow up with Dr. Gómez as previously scheduled and discuss hypercoagulable workup. 3. Follow up with Dr. Green in 8 to 12 weeks. 4. The patient is to remain on Plavix 75 mg x1 month and stop and remain on the aspirin 81 mg daily. TIME SPENT: Approximately 60 minutes was spent on this discharge. OUMAR VARNER, FIBERGLASS MODEL MAKER [id number]/[facility] #: [id number] ONDINA
== END 2018-10-13 17:11 | disposition home or self-care (01) ==
LOC: ED 16:55 → MEDTELE 20:23
PROVIDERS: ADMIT Internal Medicine; ATTEND Internal Medicine
DX: R29.810 Facial weakness (principal); H53.8 Other visual disturbances; Z86.73 Personal history of transient ischemic attack (TIA), and cerebral infarction without residual deficits; Z85.01 Personal history of malignant neoplasm of esophagus; E11.9 Type 2 diabetes mellitus without complications; Z79.84 Long term (current) use of oral hypoglycemic drugs; I10 Essential (primary) hypertension; M79.7 Fibromyalgia; F32.9 Major depressive disorder, single episode, unspecified; E03.9 Hypothyroidism, unspecified; R56.9 Unspecified convulsions; Z86.718 Personal history of other venous thrombosis and embolism; Z79.01 Long term (current) use of anticoagulants; Z88.0 Allergy status to penicillin; Z88.2 Allergy status to sulfonamides; Z79.82 Long term (current) use of aspirin
CPT/HCPCS: 36415; 70450; 70496; 70498; 70551; 71045; 80048; 80053; 80061; 81003; 83036; 83605; 83735; 84443; 84484; 85025; 85610; 85730; 86850; 86900; 86901; 93005; 93306; 93970; 96372; 99285; A9270-GY; G0378; J1650; Q9967

== ENCOUNTER 2019-02-11 16:39 | Inpatient (IN) | payer MEDICARE, MEDICAID ==
--- NOTE | 2019-02-11 16:46 | ED ---
Neurological HPI - HPI Summary HPI Summary: Time seen by provider: [id number]. 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 Per the EMS was at the eye doctors office when it was noticed that she had severely impaired speech. She was experiencing left are weakness, pain behind left eye, and garbled speech. Last seen normal at 1600. She is not currently on any blood thinners. LEVEL 5 CAVEAT. Full HX unobtainable as pt has decreased responsiveness. - History of Current Complaint Stated Complaint: CODE RIOS PER EMS Time Seen by Provider: 02/11/19 16:41 Hx Obtained From: EMS Hx From Patient Unobtainable Due To: Other - LEVEL 5 CAVEAT. Full HX unobtainable as pt has decreased responsiveness. Onset/Duration: Sudden Onset, Started minutes ago, Resolved Timing: Sudden Onset Onset Severity: Moderate Current Severity: Moderate Pain Intensity: 0 Pain Scale Used: 0-10 Numeric Character: Impaired Speech, Other: - pos - left arm pain, pain behind left eye - Additional Pertinent History Primary Care Physician: EVA - Allergy/Home Medications Allergies/Adverse Reactions: Allergies Allergy/AdvReac Type Severity Reaction Status Date / Time diphenhydramine Allergy Anaphylatic Verified 01/07/18 15:42 [From Benadryl] Shock latex Allergy blisters Verified 01/07/18 15:42 on skin Penicillins Allergy Rash Verified 01/07/18 15:42 phenobarbital Allergy Unknown Verified 01/07/18 15:42 Reaction Details propoxyphene Allergy See Comment Verified 01/07/18 15:42 [From Darvocet-N] Sulfa (Sulfonamide Allergy Rash Verified 01/07/18 15:42 Antibiotics) Home Medications: Home Medications EPINEPHrine [Epipen] 0.3 mg IM ONCE PRN 02/11/19 [History Confirmed 02/11/19] Lisinopril TAB* [Prinivil TAB 5 MG*] 5 mg PO DAILY 02/11/19 [History Confirmed 02/11/19] PMH/Surg Hx/FS Hx/Imm Hx Endocrine/Hematology History: Reports: Hx Anticoagulant Therapy, Hx Diabetes, Hx Thyroid Disease - hypo Cardiovascular History: Reports: Hx Deep Vein Thrombosis - x3 in LUE, Hx Hypercholesterolemia, Hx Hypertension - TAKES MEDICATION Denies: Hx Pacemaker/ICD, Other Cardiovascular Problems/Disorders Respiratory History: Reports: Hx Asthma Denies: Other Respiratory Problems/Disorders GI History: Reports: Hx Gastroesophageal Reflux Disease, Other GI Disorders - CA OF ESOPH/ ESOPH REMOVED. 10/2017 History: Denies: Hx Renal Disease Musculoskeletal History: Reports: Hx Fibromyalgia Denies: Other Musculoskeletal History Sensory History: Reports: Hx Contacts or Glasses - glasses Denies: Hx Hearing Aid Opthamlomology History: Reports: Hx Contacts or Glasses - glasses Neurological History: Reports: Hx CVA, Hx Nerve Disease - fibromyalgia, Hx Seizures - with strobe lights, no meds, last one 3-4 yrs ago, Hx Transient Ischemic Attacks (TIA) - October 2017 Denies: Other Neuro Impairments/Disorders Psychiatric History: Reports: Hx Anxiety - on meds, Hx Depression - on meds Denies: Hx Panic Disorder - Cancer History Cancer Type, Location and Year: esophagus Hx Chemotherapy: Yes Hx Radiation Therapy: Yes - Surgical History Surgery Procedure, Year, and Place: HYSTERECTOMY, 2007, [place]. GALLBLADDER, 2009 , [place]. ESOPHAGUS REMOVAL Hx Anesthesia Reactions: Yes - diff to wake up Infectious Disease History: Reports: Hx of Known/Suspected MRSA, Hx Shingles - Family History Known Family History: Positive: Other - No FHx of breast CA Family History: No FHx of breast CA - Social History Alcohol Use: None Hx Substance Use: No Substance Use Type: Reports: None Hx Tobacco Use: Yes Smoking Status (MU): Former Smoker Review of Systems Eyes: Other - pos - pain behind left eye Positive: Other - pos - left arm pain Neurological: Other - pos - impaired/garbled speech All Other Systems Reviewed And Are Negative: No - Comments Additional Review of Systems Comments: LEVEL 5 CAVEAT. Full HX unobtainable as pt has decreased responsiveness. Physical Exam - Summary Physical Exam Summary: Constitutional: Well-developed, Well-nourished, Alert. (-) Distressed Skin: Warm, Dry HENT: Normocephalic; Atraumatic Eyes: Conjunctiva normal Neck: Musculoskeletal ROM normal neck. (-) JVD, (-) Stridor, (-) Tracheal deviation Cardio: Rhythm regular, rate normal, Heart sounds normal; Intact distal pulses; The pedal pulses are 2+ and symmetric. Radial pulses are 2+ and symmetric. (-) Murmur Pulmonary/Chest wall: Effort normal. (-) Respiratory distress, (-) Wheezes, (-) Rales Abd: Soft. (-) Tenderness, (-) Distension, (-) Guarding, (-) Rebound Musculoskeletal: (-) Edema Lymph: (-) Cervical adenopathy Neuro: See NIH stroke scale for neurological exam (Score of 7). GCS of 15 (see scale). Psych: Mood and affect Normal Triage Information Reviewed: Yes Vital Signs Reviewed: Yes Completion Of Physical Exam Limited Due To: Level 5 - LEVEL 5 CAVEAT. Full HX unobtainable as pt has decreased responsiveness. Diagnostics - Laboratory Result Diagrams: 02/12/19 05:33 02/12/19 05:33 Lab Statement: Any lab studies that have been ordered have been reviewed, and results considered in the medical decision making process. - CT Brain CT CT Interpretation Completed By: Radiologist Summary of CT Findings: IMPRESSION: NO EVIDENCE FOR GROSS ACUTE INFARCT, MASS EFFECT OR HEMORRHAGE. ED Physician has reviewed this report. Head CTA CT Interpretation Completed By: Radiologist Summary of CT Findings: IMPRESSION: 1. No acute occlusive disease, significant stenosis or aneurysm in the head. 2. No acute occlusive disease of the neck. 3. Negligible atherosclerotic burden within the [id number]. 4. Status post esophagectomy with a partially imaged gastric pull-up. ED Physician has reviewed this report. - EKG 1726 Cardiac Rate: NL - 89 bpm EKG Rhythm: Sinus Rhythm Summary of EKG Findings: NSR @ 89 bpm. Normal EKG. NIH Scale - NIH Scale Level of Consciousness: Responds to Minor Stimulation Ask Patient the Month and His/Her Age: Both Correct Ask Pt to Open/Close Eyes and Driver Messenger/Release Non-Paretic Hand: Both Correctly Best Gaze (Only Horizontal Eye Movement): Partial Gaze Palsy Visual Field Testing: No Visual Loss Facial Paresis-Pt to Smile & Close Eyes or Grimace Symmetry: Minor Paralysis Motor Function - Right Arm: Effort Against Treichlers Motor Function - Right Leg: No Drift-Holds 10 Seconds Motor Function - Left Leg: No Drift-Holds 10 Seconds Limb Ataxia-Must be out of Proportion to Weakness Present: Absent Sensory (Use Pinprick to Test Arms/Legs/Trunk/Face): Pinprick Less on Affected Best Language (Describe Picture, Name Items): No Aphasia Dysarthria (Read Several Words): Slurs Some Words Extinction and Inattention: No Abnormality NIH Stroke Scale Comment: NIH score of 7 Re-Evaluation - Re-Evaluation First Eval Re-Evaluation Time: 17:01 - pt went into seizure after brain CT. Second Eval Re-Evaluation Time: 17:10 Comment: 2 ml adivan stopped. seizure postictal. Has had seizure in the past with left arm weakness following it. Given Sz and marcos's paralysis Hx, will hold off on tpa. Course/Dx - Course Course Of Treatment: Patient is brought in as a code rios. On arrival, patient had left-sided deficits so a stat CT head was performed. Patient had a negative CT head. Patient also had a CTA performed which showed no thrombus. On the way back from CT scanner, patient had a grand mal seizure. Patient was treated with 2 mg of Ativan which broke her seizure. Patient was loaded with fosphenytoin. Patient has had neurologic deficits following seizure in the past. 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 Patient was admitted to the hospital for further management. - Diagnoses Provider Diagnoses: Left-sided weakness, Seizure, Seizure disorder, Marcos's paralysis - Physician Notifications Discussed Care Of Patient With: Candi Mahoney - Dr. Mahoney will admit pt to [facility]. Time Discussed With Above Provider: 17:30 Instructed by Provider To: Admit As Inpatient - Critical Care Time Critical Care Time: 30-74 min - 35 minutes Discharge ED - Sign-Out/Discharge Documenting (check all that apply): Patient Departure - admit Patient Received Moderate/Deep Sedation with Procedure: No - Discharge Plan Condition: Stable Disposition: ADMITTED TO [facility] - Billing Disposition and Condition Condition: STABLE Disposition: Admitted to [facility] - Attestation Statements Document Initiated by Smith: Yes Documenting Scribe: Florentino Baptiste Provider For Whom Smith is Documenting (Include Credential): Bin Pastor MD Scribe Attestation: Florentino Kessler, scribed for Bin Pastor MD on 02/14/19 at 1241. Scribe Documentation Reviewed: Yes Provider Attestation: The documentation as recorded by the Florentino [email or web address] accurately reflects the service I personally performed and the decisions made by me, Bin Pastor MD Status of Scribe Document: Viewed
[2019-02-11] MEDS ORDERED: LORazepam INJ* 2 MG/ML 1 ML VIAL IV PUSH ONE (16:50)
[2019-02-11] MEDS ORDERED: Lorazepam PYXIS KEY ONE (16:53)
[2019-02-11] MEDS ORDERED: LORazepam INJ* 2 MG/ML 1 ML VIAL ONE ×2 (16:54)
[2019-02-11] MEDS ORDERED: NS 0.9% IV ONE (16:56)
[2019-02-11] MEDS ORDERED: PHENYTOIN IV ONE (16:56)
--- OUTSIDE RECORDS SUMMARY | 2019-02-11 17:00 | XMS REPORT | Continuity of Care Document ---
:1965 External Reference #:[id number] Author Name Padilla Main M.D. 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 Problems Active Problems Provider Date Type 2 diabetes mellitus Onset: Note: diagnosed 2015 CVA - cerebrovascular accident due to cerebral artery occlusion Onset: Note: 10/2017 - secondary to PIC line after esophageal surgery with left sided hand affected Transient cerebral ischemia Onset: Note: October 2018 - left face affected Hypothyroidism Onset: Hypertensive disorder Onset: Malignant tumor of esophagus Onset: Note: October 2018 Fibromyalgia Onset: Blood magnesium abnormal Onset: Note: low Depressive disorder Onset: Malignant tumor of cervix Onset: Social History Type Date Description Comments Sex Unknown ETOH Use Denies alcohol use Tobacco Use Start: Unknown End: Unknown Patient is a former smoker Recreational Drug Use Denies Drug Use Smoking Status Reviewed: 02/11/19 Patient is a former smoker Allergies, Adverse Reactions, Alerts Active Allergies Reaction Severity Comments Date Darvocet 02/11/2019 Phenobarbital 02/11/2019 Benadryl 02/11/2019 Penicillin 02/11/2019 Sulfa Antibiotics 02/11/2019 Latex 02/11/2019 Bee Stings 02/11/2019 Medications Active Medications SIG Qnty Indications Ordering Date Provider Omeprazole Take 1 Capsule By Unknown 40mg Capsules DR Mouth Twice A Day Before Meals Atorvastatin Calcium TK 1 T PO qd Unknown 40mg Tablets Sertraline HCL TK 2 TS PO Every Unknown 100mg Day Tablets Lisinopril TK 1 T PO qd Unknown 5mg Tablets Aspirin REHABILITATION SERVICES COUNSELOR 1 T PO D Unknown 81mg Chewtabs Epinephrine U Utd Unknown 0.3mg/0.3ML Solution Auto-Inject Ra Vitamin D-3 take 1 capsule by Unknown 5000Unit mouth daily or 7 Capsules capsules every week Ventolin HFA Unknown 108(90Base) mcg/Act Aerosol Magnesium Oxide take 2 tablets by Unknown mouth every 400(241.3Mg) mg Tablets evening for Low Magnesium Ondansetron HCL take 1 tablet by Unknown 4mg Tablets mouth every 4 hours if needed Metoclopramide HCL take 1 tablet by Unknown 10mg mouth four times a Tablets day : before meals and at bedtime Cranberry Unknown 400mg Capsules Immunizations Description No Information Available Vital Signs Description No Information Available Results Description No Information Available Procedures Description No Information Available Medical Devices Description No Information Available Encounters Description No Information Available Assessments Date Code Description Provider 02/11/2019 E11.9 Type 2 diabetes mellitus without complications Padilla Main M.D. Plan of Treatment 02/11/2019 - Padilla Main M.D.E11.9 Type 2 diabetes mellitus without complicationsComments:Smoking can increase the risk of developing or worsening any eye related disease, as well as affect your overall health. If you are a smoker, we strongly recommend that you quit.If you are not a smoker, we strongly recommend that you do not start. You have diabetes. I do not detect any changes in both of your retinas from diabetes at this time. Proper control of your diabetes is important for the health of your eyes. Changes in your eyes from diabetes can happen without symptoms, so it is important that you have your eyes examined. Dr. Main has sent a report to your primary care doctor , lettingthem know there is no damage from the Diabetes in your eyes. Functional Status Description No Information Available Mental Status Description No Information Available Referrals Description No Information Available
[2019-02-11] MEDS ORDERED: Lorazepam PYXIS KEY PRN ×2 (17:20→18:17)
[2019-02-11 17:30] LABS: ABS Eosinophils 0.1 10^3/ul (0-0.6); ABS Lymphocytes 0.8 10^3/ul (1.0-4.8); ABS Monocytes 0.4 10^3/ul (0-0.8); ABS Neutrophils 5.7 10^3/ul (1.5-7.7); Eosinophil % 1.5 %; Hematocrit 40 % (35-47); Hemoglobin 13.7 g/dL (12.0-16.0); Mean Corpuscular HGB Conc 34 g/dL (31-36); Mean Corpuscular Hemoglobin 29 pg (27-31); Mean Corpuscular Volume 85 fL (80-97); Mean Platelet Volume 6.9 fL (7.4-10.4); Platelet Count 230 10^3/uL (150-450); Red Blood Count 4.69 10^6 /uL (3.70-4.87); Red Cell Distribution Width 14 % (10-15); White Blood Count 7.1 10^3/uL (3.5-10.8)
[2019-02-11] MEDS ORDERED: FOSPHENYTOIN IVPB ONE (17:30)
[2019-02-11] MEDS ORDERED: NS 0.9% IVPB ONE (17:30)
[2019-02-11 17:44] LABS: Activated Partial Thrombo Time 35.5 seconds (26.0-38.0); INR 0.91 (0.82-1.09)
[2019-02-11 17:53] LABS: Urine Appearance Cloudy; Urine Bacteria 1+ (Absent); Urine Bilirubin Negative (Negative); Urine Blood 1+ (Negative); Urine Color Yellow; Urine Glucose Negative (Negative); Urine Ketones Negative (Negative); Urine Nitrite Positive (Negative); Urine Protein Negative (Negative); Urine Red Blood Cell 2+(6-10/hpf) (Absent); Urine Specific Gravity 1.031 (1.010-1.030); Urine Squamous Epithelial Cell Present (Absent); Urine Transitional Epithelial Present (Absent); Urine Urobilinogen Negative (Negative); Urine White Blood Cell 3+(>20/hpf) (Absent)
[2019-02-11] MEDS ORDERED: NS 0.9% 1000 ML** 1,000 ML IV SCH (18:15)
[2019-02-11] MEDS ORDERED: LORazepam INJ* 2 MG/ML 1 ML VIAL IV PUSH PRN (18:17)
[2019-02-11 18:21] LABS: Albumin 4.1 g/dL (3.2-5.2); Calcium 9.6 mg/dL (8.6-10.3); Total Bilirubin 0.7 mg/dL (0.2-1.0)
[2019-02-11 18:27] LABS: BUN/Creatinine Ratio 24.1 (8-20); EGFR African American 82.7 (>60); EGFR Non-African American 68.4 (>60); Globulin 2.1 g/dL (2-4); HDL Cholesterol 37.4 mg/dL; Total Protein 6.2 g/dL (6.4-8.9)
[2019-02-11] MEDS ORDERED: Enoxaparin(*) 40 MG/0.4 ML SYR SUBCUT SCH (18:30)
[2019-02-11] MEDS ORDERED: cefTRIAXone(*) 1 GM in NS 0.9% 50 ML* 50 ML IVPB SCH (18:30)
[2019-02-11] MEDS ORDERED: cefTRIAXone(*) 1 GM ADVAN/BAG ONE (18:33)
[2019-02-11 20:04] LABS: TSH (Thyroid Stimulating Horm) 4.81 mcIU/mL (0.34-5.60)
--- NOTE | 2019-02-11 20:46 | HP ---
CC: Ayleen Bobby MD; Dr. Júnior Dunaway * HISTORY AND PHYSICAL: DATE OF ADMISSION: 02/11/19 PRIMARY CARE PROVIDER: Ayleen Bobby MD ATTENDING PHYSICIAN: Emanuel Allen MD * (dictated by Lacey Arguelles NP). CHIEF COMPLAINT: Stroke-like symptoms. HISTORY OF PRESENT ILLNESS: Ms. Couch is a 53-year-old female with past medical history of CVA in 2018; esophageal cancer, status post resection, chemo , and radiation; diabetes; hypertension; fibromyalgia; depression; hypothyroidism; seizures; and DVT who presents to the emergency room today with report of stroke- like symptoms. Please note that the majority of this information was obtained from previous records and nursing staff as the patient is not able to participate in exam. 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 EMS was called and the patient was brought into the ED as a code ray. Upon arrival to the emergency room, the patient was alert and oriented. Last known normal was 1500. The patient was seen by Dr. Dunaway in the emergency room and she was brought to CT for a stat head CT. In the CT room, she did have a seizure which was witnessed by both the patient's nurse and by Dr. Dunaway. 2 mg of Ativan was administered at that point with resolution in seizure activity. The patient will briefly open her eyes and will answer with 1 word answers with significant prompting though was otherwise unable to provide any history. Because of this seizure activity, the hospitalist service was asked to evaluate for admission. PAST MEDICAL HISTORY: 1. Seizure disorder, not currently on any anticonvulsant. 2. CVA in October 2017 with residual left-sided weakness. 3. Esophageal cancer, status post resection, chemo, and radiation in June 2017. 4. Diabetes, not currently on medication. 5. Hypertension. 6. Fibromyalgia. 7. Depression. 8. Hypothyroidism, not currently on medication. 9. History of DVT, provoked by PICC line, not currently on medication. PAST SURGICAL HISTORY: 1. Esophageal resection. 2. Cholecystectomy. 3. Tubal ligation. 4. Hysterectomy. HOME MEDICATIONS: 1. Aspirin 81 mg p.o. daily. 2. Atorvastatin 40 mg p.o. daily. 3. EpiPen 0.2 mg IM p.r.n. allergy symptoms. 4. Lisinopril 5 mg p.o. daily. 5. Sertraline 100 mg p.o. b.i.d. ALLERGIES: BENADRYL, LATEX, PENICILLIN, PHENOBARBITAL, PROPOXYPHENE, and SULFA. FAMILY HISTORY: Unknown as the patient is adopted. SOCIAL HISTORY: According to prior records, the patient was a previous smoker who smoked half a pack a day for approximately 10 years. She quit in 1992. She has previously denied any alcohol or recreational drug use. The patient's mother, Lisa, has previously been her surrogate decision maker in the past and the patient was able to confirm to me that she would like her mother to remain her surrogate decision maker. REVIEW OF SYSTEMS: An 11-point review of systems was attempted, though unobtainable due to lethargy and sedation. PHYSICAL EXAMINATION GENERAL: Ms. Couch is a well-developed, well-nourished, overweight white woman , lying in bed, in no acute distress, appears her stated age. VITAL SIGNS: Temp 98.2, heart rate 91, respiratory rate 12, oxygen saturation 95 % on room air, blood pressure 122/89. HEENT: Head is atraumatic, normocephalic. Visual terry could not be tested. Pupils are severely dilated, though they were dilated by her stocking inspector. Oral mucous membranes moist. NECK: Trachea midline. No lymphadenopathy. RESPIRATORY: Symmetrical chest expansion. No chest wall deformities. Lungs diminished to auscultation throughout, though the patient is not able to follow instruction to take deep breaths. There are no appreciable rhonchi, wheezes, or rales. CARDIOVASCULAR: Regular rate and rhythm. S1, S2 present. No murmurs, rubs, or gallops. ABDOMEN: Soft, nontender to palpation. Bowel sounds normoactive throughout. EXTREMITIES: Skin is warm and smooth bilaterally. No edema. Pedal pulses 2+ bilaterally. NEURO: Arousable to voice with significant prompting. She is able to answer orientation questions including self, place, time, and somewhat situation, although she believes she had a stroke. Moves all extremities. Hand shingle packer are 5/5 in the right hand and 3/5 in the left hand. Upper and lower extremities do have effort against gravity, although due to sedation, strength is not accurately able to be tested. DIAGNOSTIC STUDIES/LABORATORY DATA: WBC 7.1, RBC 4.69, hemoglobin 13.7, hematocrit 40, platelets 230. INR 0.91. Sodium 144, potassium 4.0, chloride 110, carbon dioxide 22, BUN 21, creatinine 0.87, glucose 85. Lactic acid 0.8. Troponin 0.00. Triglycerides 130, total cholesterol 158, LDL 95, HDL 37. Urinalysis remarkable for blood, nitrites, leukocyte esterase, white blood cells , and bacteria. Brain CT reads as no evidence for gross acute infarct, mass effect, or hemorrhage. EKG shows normal sinus rhythm with a rate of 89, QTc 459. This EKG is consistent with prior EKG on file from September 2018. Head CTA reads as no acute occlusive disease, significant stenosis, or aneurysm in the head. No acute occlusive disease in the neck. Negligible arthrosclerotic burden within the field of view. Status post esophagectomy with a partially imaged gastric pull-up. ASSESSMENT AND PLAN: Ms. Couch is a 53-year-old female with a past medical history of seizure disorder, currently not treated; cerebrovascular accident; esophageal cancer; diabetes; hypertension; and DVT who presents to the emergency room today with stroke-like symptoms and was noted to have a witnessed seizure while in the emergency room. The patient will be admitted inpatient for: 1. Seizures. The source of the patient's symptoms at her stocking inspector's office are not entirely clear. It is possible that the patient did have a seizure prior to arrival in the hospital and then she certainly did have a witnessed seizure while in the hospital. The patient was already seen by Dr. Dunaway from Neurology, who gave her a loading dose of fosphenytoin. She additionally received lorazepam immediately after her witnessed seizure. I have officially consulted Neurology. I spoke with Dr. Dunaway, who recommended obtaining a brain MRI without contrast, an EEG, and a trough phenytoin level in the morning, all of which I have ordered. He also recommended placing the patient on phenytoin 100 mg p.o. q.8 hours beginning tomorrow morning, which I have ordered as well. I would hope that in the morning the patient is more alert and able to take p.o. medications, although if she is not at that point then we can change the phenytoin to an IV route. At this point, she is certainly postictal and sedated from the Ativan she has received, so we will monitor her closely overnight. I have ordered q.4 neuro checks and she will be monitored on telemetry. I have additionally ordered p.r.n. Ativan in the event the patient does experience another seizure and I have made her n.p.o. at this point until she is more awake. 2. Stroke-like symptoms. Again, there was some concern that the patient had stroke-like symptoms including left arm weakness and pain behind her left eye. From my understanding, she does have some baseline left-sided weakness from her prior cerebrovascular accident, so it is unclear how much this was increased from her baseline. At this point, we will attempt to rule out a cerebrovascular accident in the morning with an MRI. It is possible that she had a transient ischemic attack, though I would suspect that her symptoms are simply related to seizure activity rather than ischemia or infarction. I will continue her on her daily aspirin starting tomorrow and I will increase her atorvastatin as her LDL is not at goal at this point. I will additionally check an A1c as the patient has reportedly previously been diagnosed with diabetes though is not on medication and this would be a significant risk factor for transient ischemic attack or cerebrovascular accident. 3. Urinary tract infection. The patient's urinalysis was certainly convincing of a urinary tract infection with nitrites, leukocyte esterase, and bacteria. She is not meeting sepsis criteria at this point. I have placed her on ceftriaxone. She does have a reported PENICILLIN allergy with a reaction of rash, so I think that ceftriaxone is a safe choice at this point. We will await a urine culture to make any further antibiotic changes at that time. 4. Hypertension. The patient is normotensive in the emergency room with systolic pressures in the 120s and below. I will continue her on her home dose of lisinopril starting tomorrow morning. 5. History of cerebrovascular accident. Again, I will continue the patient on her aspirin and increased dose of atorvastatin. 6. Depression. Continue sertraline. 7. FEN. I will place the patient on normal saline at 75 mL/hour for the time being as she will not be taking in any fluids overnight. She does not require any electrolyte repletion and as noted above I have made her n.p.o. 8. Code status. The patient will be a full code. 9. DVT prophylaxis. According to the DVT Risk Assessment, the patient scores a 5 putting her at highest risk. I have ordered Lovenox. TIME SPENT: Approximately 50 minutes was spent on this admission, including time spent with the patient obtaining my history, performing my physical exam, and reviewing my plan of care. I did also attempt to reach the patient's mother and left a message to update her on the patient's status. This case has been reviewed with my attending, Dr. Allen, who is in agreement with the plan of care. LACEY ARGUELLES, BAIL BONDING AGENT [id number]/[facility] #: [id number] ONDINA
[2019-02-12 05:58] LABS: ABS Eosinophils 0.1 10^3/ul (0-0.6); ABS Lymphocytes 0.8 10^3/ul (1.0-4.8); ABS Monocytes 0.4 10^3/ul (0-0.8); Hematocrit 38 % (35-47); Hemoglobin 12.9 g/dL (12.0-16.0); Mean Corpuscular HGB Conc 34 g/dL (31-36); Mean Corpuscular Hemoglobin 30 pg (27-31); Mean Corpuscular Volume 87 fL (80-97); Mean Platelet Volume 6.9 fL (7.4-10.4); Nucleated Red Blood Cells % 0.1; Platelet Count 182 10^3/uL (150-450); Red Blood Count 4.36 10^6 /uL (3.70-4.87); Red Cell Distribution Width 14 % (10-15); White Blood Count 5.3 10^3/uL (3.5-10.8)
[2019-02-12 06:17] LABS: Phenytoin 12.2 mcg/mL (10-20)
[2019-02-12 06:18] LABS: BUN/Creatinine Ratio 22.1 (8-20); EGFR African American 83.8 (>60); EGFR Non-African American 69.3 (>60)
[2019-02-12] MEDS ORDERED: Atorvastatin* 80 MG TAB PO SCH (09:00)
[2019-02-12] MEDS ORDERED: Phenytoin CAP(*) 100 MG CAP.ER PO SCH (09:00)
[2019-02-12] MEDS ORDERED: Lisinopril TAB* 5 MG PO SCH (09:00)
[2019-02-12] MEDS ORDERED: Atorvastatin* 40 MG TAB PO SCH (09:00)
[2019-02-12] MEDS ORDERED: Aspirin 81 mg CHEW TAB* 81 MG TAB.CHEW PO SCH (09:00)
--- NOTE | 2019-02-12 11:53 | CONS ---
NEUROLOGY CONSULTATION: DATE OF CONSULT: 02/11/19 LOCATION: She is in the emergency room. REFERRING PROVIDER: Dr. Pastor. CHIEF COMPLAINT: Left-sided weakness. HISTORY OF PRESENT ILLNESS: Shireen Couch is a 53-year-old, right-handed woman who presented to the emergency room as a code ray. History is from the patient, subsequently her mother and daughter who arrived later, and the mainframe analyst who brought her into the emergency room. She was at an eye doctor, had her eyes dilated. The flight information expediter came back into the room and she had left- sided weakness and slurred speech. Ambulance was summoned, and she was brought into the emergency room as a code ray. Last known well was 1600 hours on 02/11. She was evaluated in the emergency room within 30 to 45 minutes of onset of symptoms. When wheeled into the ER, she had weakness of her left arm, very soft and somewhat slurred speech, and she was a little lethargic. She was whisked off to the CT scanner where additional examination was performed. She had normal eye movements and intact visual terry. She could not raise the left arm up other than very weakly but not fully against gravity. A CT scan of the brain was performed and was reviewed personally and immediately and was normal. The official interpretation by the radiologist was a normal CAT scan as well. She had a CT angiogram of the brain immediately after the CT scan, which I reviewed as well. There are no evidence of large vessel occlusions or other significant abnormalities. She had a prior esophagectomy from esophageal cancer , which was notable on the CT angiogram of the neck. While coming off of the CT scanner and being transferred back to a [facility], she had a seizure. She had a tonic seizure with deviation of the head to the left and deviation of her eyes to the left. The left arm was stiff at her side. There were some very low- grade clonic components but it was mainly a tonic seizure. The seizure persisted as she was wheeled back to the emergency room. In the emergency room , she was given 2 mg of Ativan intravenously. The seizure subsided and lasted approximately 3 minutes in entirety. After that she was not immediately responsive but within a few minutes, she was nodding her head appropriately to questions. She did not have any further seizures. Further history was obtained from the medical records. She had been on phenobarbital previously but was allergic to it. The patient was able to nod appropriately that she has a history of seizures in the past. As time went by, she indicated she had had seizures when she was a "teenager." Subsequently, her mother and daughter came in. Her mother said she has had seizures since she was in college. The first one was precipitated by being in a movie where there was flashing lights. She says ever since then she would have seizures in response to flashing lights. She is not aware if she had been on any anticonvulsants at all in the past nor when the last time she might have had a seizure. She reportedly had a "major stroke" when she was being treated for esophageal cancer approximately a year ago. She had left-sided weakness and it took apparently weeks or even months for her to recover completely according to her daughter. She did not attend any rehab. She did not go to physical therapy because she was noncompliant with the recommendation. She was treated with aspirin therapy, which she was on when she presented to the hospital on . She had another hospitalization just this past September when she presented with left-sided weakness. It resolved while she was in the emergency room. A code ray was called but the telestroke neurologist did not recommend TPA because of her resolution of symptoms. She had an MRI scan of the brain during that hospitalization, which showed no abnormalities. 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 In reviewing records, there is also report of an EEG from 02/04/11, which I interpreted as a normal awake EEG. The indication was an episode of unresponsiveness with left arm weakness and difficulty speaking associated with a severe headache after a hot summer day. She was evaluated by Dr. Cleveland Green when she presented on 10/13/18 with left- sided facial numbness and blurry vision. She was started on aspirin and Plavix at the time for a 30-day dual antiplatelet therapy course and subsequently switched to aspirin. She had an MRI scan of the brain on 10/12/18, which I reviewed the images of and which was interpreted as no acute intracranial abnormality. I did not see any evidence of a significant prior stroke. There were a few tiny white matter hyperintensities. PAST MEDICAL HISTORY: Notable for esophageal cancer, cervical cancer, both felt to be free of disease. She has a history of seizure disorder, possible "major stroke," diagnosis of fibromyalgia, depression, hypothyroidism, history of deep vein thrombosis in the subclavian artery provoked by a PICC line, diabetes. She has had a cholecystectomy, esophageal resection, tubal ligation, hysterectomy. MEDICATIONS: At home consist of: 1. Sertraline 100 mg p.o. daily. 2. Lisinopril 5 mg p.o. daily. 3. Atorvastatin 40 mg p.o. daily. 4. Aspirin 81 mg p.o. daily. ALLERGIES: She is listed as having allergies to LATEX, PENICILLIN, PHENOBARBITAL, SULFA DRUGS, PROPOXYPHENE. FAMILY HISTORY: The patient is adopted. SOCIAL HISTORY: From the records and from the patient's mother, she is an ex- smoker who quit in 1992. She does not drink alcohol. REVIEW OF SYSTEMS: Limited from the patient and came from multiple sources, is negative for cardiac, pulmonary, renal, GI, or disease. Other than that, the 14- point review of systems is negative other than the history of present illness and the past medical history. PHYSICAL EXAM: A combination of examinations over time in the emergency room, CT scanner, and subsequently again in the emergency room is notable for an overweight woman who is intermittently lethargic and at other times fatigued but able to cooperate. Her temperature was afebrile throughout her stay in the emergency room. Her blood pressure was generally running about 120/70-80, heart rate was generally in the 90s and in sinus on the monitor. Respiratory rate was running around 16 with an oxygen saturation of 97% on room air. Heart tones were normal. Neck was supple. Oral mucosa was moist without evidence of oral trauma. Head was atraumatic. Lungs were clear anterolaterally. There were no cervical bruits. Neurological Exam: Her pupils were pharmacologically dilated at about 8 mm and minimally reactive to light. Funduscopic exam was unremarkable. Eye movements were saccadic. There were some nystagmus in left and right gaze. Facial musculature was notable for mild flattening of the left nasolabial fold, which improved over time in the emergency room. Facial sensation to light touch was reported as symmetric by the patient. Tongue protruded in the midline and speech was very soft and minimally dysarthric. Visual terry were full to confrontation. On motor exam, she had less than antigravity weakness of the left arm. She had normal strength to the right arm, right leg, and left leg. She was able to hold them off the bed without drift. Sensation to light touch and pin was diminished in the left arm relative to right but intact and symmetric in both legs. Coordination in the right hand was normal but inconsistent. Plantar responses were flexor bilaterally. She was intermittently lethargic and awake but somnolent. She was able to provide single word answers. She was able to answer questions appropriately with single word answers. Her NIH stroke score postictally was 7 in the emergency room. DIAGNOSTIC STUDIES/LAB DATA: Laboratory data includes CT scan of the brain and CT angiogram reported in the history of present illness. Her initial CBC and chemistry profile was unremarkable. Lactic acid level at 1720 was 0.8. Alkaline phosphatase was elevated at 145 and the rest of the liver enzymes were normal. Cholesterol was 158, LDL 95. She had a normal TSH at 4.81. INR and PTT were within normal limits. IMPRESSION: Postictal hemiparesis. She had an observed seizure in the CT scanner and emergency room. She has a history of seizures going back to her teenage years. Alternative diagnosis of an embolus or other cerebral infarction causing a seizure is highly unlikely given her prior history of epilepsy. She responded to 2 mg of Ativan and fosphenytoin 1200 mg was added. She should be admitted to the hospital and maintained on phenytoin at 100 mg 3 times per day. I subsequently discussed my recommendations with Lacey Arguelles of the hospitalist service as well as working with Dr. Pastor in the emergency room over the course of her stay there. She should have an MRI scan of the brain to look for evidence of a cerebral infarction and an EEG also. Further recommendations will depend upon the results of her studies and her hospital course. [id number]/[facility] #: [id number] MTDD
--- NOTE | 2019-02-12 13:35 | EEG ---
ELECTROENCEPHALOGRAPHY: DATE OF STUDY: 02/12/19 - ROOM #432 LOCATION: She is an inpatient. REFERRING PHYSICIAN: Lacey Arguelles NP CLINICAL PROBLEM: Observed seizure the day prior to this recording. Remote history of seizures. CURRENT MEDICATIONS: Include: 1. Dilantin. 2. Prinivil. 3. Lipitor. 4. Aspirin. 5. Sertraline. 6. Lovenox. REPORT: This 19-channel EEG is remarkable for background rhythms consistent with stage 2 sleep. Specifically, parasagittal sleep spindles are seen and are well formed and symmetric. Vertex slowing and posterior occipital sharp transients of sleep are also seen and are symmetric. The patient remains asleep until the end of the recording where she was woken with normal background rhythm consisting of an occipital alpha rhythm at about 10 cycles per second and bifrontal beta rhythms. Activation procedures are not attempted. There are no clinical events. CLINICAL IMPRESSION: Normal asleep and briefly awake EEG. [id number]/[facility] #: [id number] [facility]
--- NOTE | 2019-02-12 14:44 | CONS ---
NEUROLOGY FOLLOWUP CONSULT: DATE OF FOLLOWUP: 02/12/19 LOCATION: She is an inpatient in room 432. HOSPITALIST: Lacey Arguelles NP. CHIEF COMPLAINT: Seizure. INTERVAL HISTORY: Since yesterday, Shireen feels well. She has not had any recurrent seizures. She reports that she has not had a seizure for years. She did have the episode of left facial numbness in September, which resolved by the time she got to the emergency room. She also had the episode of left-sided weakness a year ago, diagnosed as a stroke. She says the only anticonvulsant she has ever been on is phenobarbital. She has not been on it for years. She does drive. MEDICATIONS: Reviewed and she is on: 1. Dilantin 100 mg p.o. t.i.d. 2. Atorvastatin 80 mg p.o. daily. 3. Aspirin 81 mg p.o. daily. 4. Ceftriaxone 1 g IV q.24 hours. 5. Lovenox 40 mg subcutaneous q.24 hours. 6. Lisinopril 5 mg p.o. daily. 7. Sertraline 100 mg p.o. b.i.d. PHYSICAL EXAM: She is overweight. Temperature 97.9, blood pressure 111/71, heart rate in the 80s. Neurologically, she is alert and oriented. She does not recall being in the emergency room yesterday. She does not recall being in the packing machine operator's office. Facial musculature is symmetric. Speech is soft but clear. Language is fluent. DIAGNOSTIC STUDIES/LAB DATA: Laboratory data includes a phenytoin level from earlier today of 12.2, urinalysis from yesterday notable for 3+ leukocyte esterase and 3+ white blood cells, chemistries this morning unremarkable. MRI of the brain was reviewed and is a normal noncontrasted MRI of the brain. EEG done earlier today was interpreted by myself as normal. IMPRESSION AND PLAN: Impression is that of focal onset epilepsy. I suspect she has had multiple episodes including the one last September. Her MRI did not show evidence of an old stroke and so perhaps even the episode that she had a year ago was in fact a postictal event rather than a stroke. I recommend switching to Keppra. Phenytoin has quite a few long-term side effects, and I think she would be better served on a different anticonvulsant. I wonder of the potential of mood disorders on Keppra and if she has problems with it to call me. If she does have problems with mood or agitation, then I will switch her to a different agent. I told her that by [place] law, she cannot drive for a minimum of 6 months since her seizure and she has to report it to the Department of Motor Vehicles. I will plan to see her in followup in my office in a few weeks. [id number]/[facility] #: [id number] [place]
[2019-02-12 15:00] VITALS: BP 121/57
[2019-02-12] MEDS ORDERED: levETIRAcetam TAB* 500 MG PO SCH (15:00)
[2019-02-12] MEDS ORDERED: Sertraline* 100 MG TAB PO SCH (21:00)
--- NOTE | 2019-02-12 21:34 | DS ---
CC: Dr. Ayleen Bobby; Dr. Júnior Dunaway * DISCHARGE SUMMARY: DATE OF ADMISSION: 02/11/19 DATE OF DISCHARGE: 02/12/19 PRIMARY CARE PROVIDER: Dr. Ayleen Bobby. ATTENDING PHYSICIAN: Dr. Stevie John * (dictated by Lacey Arguelles NP). PRIMARY DIAGNOSES: 1. Seizures. 2. Urinary tract infection, Escherichia coli. SECONDARY DIAGNOSES: 1. Hypertension. 2. History of cerebrovascular accident. 3. Depression. STUDIES DONE WHILE IN THE HOSPITAL: 1. Brain CT on 02/11/19, reads as no evidence for gross acute infarct, mass effect or hemorrhage. 2. EKG on 02/11/19, shows normal sinus rhythm with a rate of 89, QTc 459. No ischemic changes. 3. Head CTA on 02/13/19, reads as no acute occlusive disease, significant stenosis or aneurysm in the head. No acute occlusive disease of the neck. Negligible arthrosclerotic burden within the field of view. Status post esophagectomy with a partially imaged gastric pull-up. 4. Brain MRI on 02/12/19, reads as no acute intracranial abnormalities. 5. EEG on 02/12/19, reads as normal sleep and briefly awake EEG. CONSULTATIONS WHILE IN THE HOSPITAL: 1. Dr. Dunaway from Neurology on 02/12/19. HISTORY OF PRESENT ILLNESS AND HOSPITAL COURSE: Ms. Couch is a 53-year-old female with past medical history of cerebrovascular accident in 2018, seizure disorder, esophageal cancer, hypertension, fibromyalgia, and depression, who presented to the emergency room on 02/11/19 with stroke-like symptoms. Please see history and physical by myself for complete summary of the events leading up to this hospitalization. In short, the patient was at her eye doctor when she began to experience pain behind her left eye and increased left-sided weakness. The patient was then transferred to the emergency room where a nikky ray was called. The patient was taken back to the CT room and had a witnessed seizure on the CT machine. She was given Ativan and a dose of fosphenytoin and was admitted by the hospitalist service. The patient was quite postictal after her seizure and was very lethargic, only able to answer questions with one word answers. Dr. Dunaway from Neurology recommended additional imaging, which was completed as noted above. He did recommend initially placing the patient on phenytoin beginning in the morning. Though, he felt as though her symptoms were secondary to a seizure and not a CVA. The patient had an uneventful night with no additional seizure activity. Dr. Dunaway did see her again this morning and at that point his impression was focal onset epilepsy. He did note that her MRI did not show any evidence of an old stroke. So, believes that it is possible that her previously diagnosed stroke was actually a seizure. He recommended switching the patient to Keppra and advised that the patient was stable for discharge from his perspective with appropriate followup with him. The patient was also noted to have a positive urinalysis on admission. Urine culture came back today with preliminary results of greater than 100,000 colonies of E. coli. Sensitivities are not back at this point, although the patient has received 1 dose of ceftriaxone yesterday here in the hospital. The patient was seen by Physical Therapy today , who indicated that the patient was able to ambulate independently and did not require any physical therapy. PHYSICAL EXAMINATION: On exam, the patient reports feeling well. She is tired and the events from yesterday are quite fuzzy to her, although she is able to stay awake and have a conversation with me. 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 The right hand is noted to be 5/ 5. She reports that this is her baseline. There are no further focal neurological deficits and she is alert and oriented x4. Her heart has a regular rate and rhythm without murmurs, rubs or gallops. Her lungs are clear to auscultation without rhonchi, wheezes or rubs. There is no edema. Physical assessment is otherwise benign. Ms. Couch is stable for discharge today. Vital signs are as follows: Temp 97.7, heart rate 69, respiratory rate 20, oxygen saturation 97% on room air, blood pressure 121/57. DISCHARGE MEDICATIONS: New medications: 1. Cephalexin 500 mg p.o. b.i.d. x6 days. 2. Keppra 250 mg p.o. b.i.d. Changed medications: 1. Atorvastatin 80 mg p.o. daily (previously was 40 mg daily). Continued medications: 1. Aspirin 81 mg p.o. daily. 2. Lisinopril 5 mg p.o. daily. 3. Sertraline 100 mg p.o. b.i.d. 4. EpiPen 0.3 mg IM once p.r.n. allergy symptoms. DISCHARGE PLAN: Ms. Couch will be discharged home. Activity will be as tolerated. will be regular as tolerated. Medications are noted above. The patient has been placed on Keppra per recommendations from Dr. Dunaway. I have increased her atorvastatin, as her LDL was not at goal on her previous dosing. I have also prescribed 6 days of cephalexin to complete a total of 7 days of antibiotic therapy for her urinary tract infection. I will note that sensitivities are not back at this point, so her PCP may need to make antibiotic adjustment if sensitivities reveal any resistance to cephalexin. She can continue her other usual medications as noted above. She has been advised by Dr. Dunaway that she is not allowed to drive for 6 months post- seizure and that she needs to report this to the [employer]. She should follow up with her primary care provider in the next 4 to 7 days. She will need to follow up with Dr. Dunaway in the next 2 to 4 weeks and he advised that his office staff will contact her to set up an appointment. She should return to the emergency room or nearest hospital for any worsening of symptoms, shortness of breath, lightheadedness, dizziness, chest discomfort, high fever, chills, night sweats, loss of consciousness or any other worrisome signs or symptoms. DISCHARGE CONDITION: Stable. DISCHARGE DISPOSITION: Home. This is a summarized report of a complex medical history and hospital stay. For further details, please see the entire medical record. TIME SPENT: Approximately 45 minutes was spent on this discharge. LACEY ARGUELLES, [employer] ATTORNEY [id number]/[facility] #: [id number] [place]
[2019-02-13] MEDS ORDERED: Pneumococcal *Vac Polyvalent 0.5 ML VIAL IM ONE (09:00)
== END 2019-02-12 18:30 | disposition home or self-care (01) | DRG 101 ==
LOC: ED 16:39 → MEDTELE 18:11
PROVIDERS: ADMIT Internal Medicine; ATTEND Internal Medicine
PROC: 4A00X4Z Measurement of Central Nervous Electrical Activity, External Approach (ICD-10-PCS; principal; 2019-02-12)
DX: G40.409 Other generalized epilepsy and epileptic syndromes, not intractable, without status epilepticus (principal); N39.0 Urinary tract infection, site not specified; B96.20 Unspecified Escherichia coli [E. coli] as the cause of diseases classified elsewhere; I10 Essential (primary) hypertension; E03.9 Hypothyroidism, unspecified; E11.9 Type 2 diabetes mellitus without complications; M79.7 Fibromyalgia; F32.9 Major depressive disorder, single episode, unspecified; E66.3 Overweight; R29.707 NIHSS score 7; E78.00 Pure hypercholesterolemia, unspecified; K21.9 Gastro-esophageal reflux disease without esophagitis; J45.909 Unspecified asthma, uncomplicated; F41.9 Anxiety disorder, unspecified; Z79.82 Long term (current) use of aspirin; Z86.718 Personal history of other venous thrombosis and embolism; Z85.01 Personal history of malignant neoplasm of esophagus; Z90.710 Acquired absence of both cervix and uterus; Z90.49 Acquired absence of other specified parts of digestive tract; Z98.51 Tubal ligation status; Z88.0 Allergy status to penicillin; Z88.2 Allergy status to sulfonamides; Z88.8 Allergy status to other drugs, medicaments and biological substances; Z85.41 Personal history of malignant neoplasm of cervix uteri; Z91.040 Latex allergy status; Z68.35 Body mass index [BMI] 35.0-35.9, adult; Z87.891 Personal history of nicotine dependence; Z86.73 Personal history of transient ischemic attack (TIA), and cerebral infarction without residual deficits
CPT/HCPCS: 36415; 70450; 70496; 70498; 70551; 80048; 80053; 80061; 80185; 81003; 81015; 83036; 83605; 84443; 84484; 85025; 85610; 85730; 87077; 87086; 87186; 93005; 95819; 99284; A9270-GY; G8978-GP-CH; G8979-GP-CH; G8980-GP-CH; G8987-GO-CI; G8988-GO-CI; G8989-GO-CI; J0696; J1165; J1650; J2060; Q2009; Q9967

== ENCOUNTER 2019-02-23 20:27 | Observation (INO) | payer MEDICARE, MEDICAID ==
--- OUTSIDE RECORDS SUMMARY | 2019-02-23 20:43 | XMS REPORT | Continuity of Care Document ---
:1965 External Reference #:[id number] Author Name Ayleen Bobby MD (transmitted by agent of provider Raysa Jackson) Address [address] , [place] [address] Care Team Providers Name Role Phone Jose Horne DO - Family Care Team Information Talent Coordinator Medicine Ayleen Bobby MD - Internal Medicine Care Team Information Talent Coordinator Problems Active Problems Provider Date Essential hypertension Junior Colin M.D., [facility], Onset: 10/12/2017 FASNC Difficulty breathing Junior Colin M.D., [facility], Onset: 10/12/2017 FASNC Other complications of Daniel Williamson II, M.D. Onset: 12/28/2017 esophagostomy Malignant tumor of esophagus Daniel Williamson II, M.D. Onset: 12/28/2017 Type 2 diabetes mellitus Daniel Williamson II, M.D. Onset: 12/28/2017 Social History Type Date Description Comments Sex Unknown ETOH Use Denies alcohol use Tobacco Use Start: Unknown End: Patient is a former smoker Quit 1992 Unknown Recreational Drug Use Denies Drug Use Smoking Status Reviewed: 02/18/19 Patient is a former smoker Quit 1992 Exercise Type/Frequency Does not exercise Allergies, Adverse Reactions, Alerts Active Allergies Reaction Severity Comments Date Darvocet 10/12/2017 Benadryl 10/12/2017 Penicillin 10/12/2017 Phenobarbital 10/12/2017 Oxaliplatin 10/12/2017 Plexion 10/12/2017 Latex 10/12/2017 Bee Sting 10/12/2017 Peppers 10/12/2017 Medications Active Medications SIG Qnty Indications Ordering Date Provider Atorvastatin Calcium 1 by mouth every E78.2 Ayleen Bobby MD 02/18/2019 80mg day Tablets Lisinopril 1 by mouth every 90tabs Ayleen Bobby MD 12/31/2018 5mg Tablets day Sertraline HCL 2 by mouth every 180tabs Ayleen Bobby MD 100mg day Tablets Vitamin D-3 take 1 tab by Unknown 5000Unit mouth daily Tablets Cranberry With Vitamin 1 by mouth twice Unknown C daily 4200mg Tablets Magnesium 2 by mouth every Unknown 400mg Tablets day Omeprazole 1 by mouth once 90caps Ayleen Bobby MD 40mg Capsules a day DR Bianchi 2-Yonas use as directed 2units Ayleen Bobby MD 0.3mg/0.3ML Solution Auto-Inject Ibuprofen 4 by mouth as Unknown 200mg Tablets needed Aspirin 81 1 by mouth every Unknown 81mg Tablets day DR Talbert HFA 2 puffs every 4 Unknown 108(90Base) hours as needed mcg/Act Aerosol Levetiracetam TK 1 T PO bid Unknown 250mg Tablets History Medications Atorvastatin Calcium take 1 tablet at 90tabs E78.2 Ayleen Bobby MD 2018 - 20mg bedtime 10/15/2018 Tablets Medications Administered in Office Medication SIG Qnty Indications Ordering Provider Date Inj, Regadenoson, 0.1 MG Junior Colin M.D., 10/22/2017 Injection CLARENCE SOLORZANO Technetium TC 99M Junior Colin M.D., 10/22/2017 Tetrofosmin, Per Unit Dose CLARENCE SOLORZANO Up To 40 Millicuries Injection Technetium TC 99M Ica Nuclear Schedule 10/19/2017 Tetrofosmin, Per Unit Dose Up To 40 Millicuries Injection Immunizations Description No Information Available Vital Signs Date Vital Result Comment 02/18/2019 8:14am Height 64 inches 5'4" Weight 214.38 lb Heart Rate 84 /min BP Systolic 124 mmHg BP Diastolic 84 mmHg Body Temperature 97.2 F O2 % BldC Oximetry 99 % BMI (Body Mass Index) 36.8 kg/m2 10/09/2018 12:23pm Height 64 inches 5'4" Weight 217.00 lb Heart Rate 85 /min BP Systolic Sitting 128 mmHg BP Diastolic Sitting 90 mmHg Body Temperature 97.1 F O2 % BldC Oximetry 98 % BMI (Body Mass Index) 37.2 kg/m2 Results Test Date Facility Test Result H/L Range Note Inr/Protime 02/11/2019 [facility] Inr 0.91 Normal 0.82-1.[address] [place] [address] [phone] Laboratory test 02/11/2019 [facility] Partial 35.5 seconds Normal 26.0-38.[address] [place] [address] PTT [phone] CBC Auto Diff 02/11/2019 [facility] White Blood 7.1 10^3/uL Normal 3.5-10.[address] [place] [address] [phone] Red Blood Count 4.69 10^6/uL Normal 3.70-4.87 Hemoglobin 13.7 g/dL Normal 12.0-16.0 Hematocrit 40 % Normal 35-47 Mean Corpuscular Volume 85 fL Normal 80-97 Mean Corpuscular Hemoglobin 29 pg Normal 27-31 Mean Corpuscular HGB Conc 34 g/dL Normal 31-36 Red Cell Distribution Width 14 % Normal 10-15 Platelet Count 230 10^3/uL Normal 150-450 Mean Platelet Volume 6.9 fL Low 7.4-10.4 Abs Neutrophils 5.7 10^3/uL Normal 1.5-7.7 Abs Lymphocytes 0.8 10^3/uL Low 1.0-4.8 Abs Monocytes 0.4 10^3/uL Normal 0-0.8 Abs Eosinophils 0.1 10^3/uL Normal 0-0.6 Abs Basophils 0.0 10^3/uL Normal 0-0.2 Abs Nucleated RBC 0.0 10^3/uL Granulocyte % 80.4 % Lymphocyte % 12.0 % Monocyte % 5.5 % Eosinophil % 1.5 % Basophil % 0.6 % Nucleated Red Blood Cells % 0.0 Urinalysis Profile 02/11/2019 [facility] Urine Color Yellow [address] [place] [address] [phone] Urine Appearance Cloudy Urine Specific Palo 1.031 High 1.010-1.030 Urine pH 6.0 Normal 5-9 Urine Urobilinogen Negative Negative Urine Ketones Negative Negative Urine Protein Negative Negative Urine Leukocytes 3+ Abnormal Negative Urine Blood 1+ Abnormal Negative Urine Nitrite Positive Abnormal Negative Urine Bilirubin Negative Negative Urine Glucose Negative Negative Urine White Blood Cell 3+(>20/hpf) Abnormal Absent Urine Red Blood Cell 2+(6-10/hpf) Abnormal Absent Urine Bacteria 1+ Abnormal Absent Urine Squamous Epithelial Cell Present Abnormal Absent Urine Transitional Epithelial Present Abnormal Absent Laboratory test 02/11/2019 [facility] Troponin-I 0.00 <0.04 [address] (TnI) ng/[place] [address] [phone] Comp Metabolic 02/11/2019 [facility] Sodium 144 Normal 135- [address] mmol/[place] [address] [phone] Potassium 4.0 mmol/L Normal 3.5-5.0 Chloride 110 mmol/L Normal 101-111 Co2 Carbon Dioxide 22 mmol/L Normal 22-32 Anion Gap 12 mmol/L High 2-11 Calcium 9.6 mg/dL Normal 8.6-10.3 Albumin 4.1 g/dL Normal 3.2-5.2 Total Bilirubin 0.70 mg/dL Normal 0.2-1.0 Glucose 85 mg/dL Normal 70-100 Blood Urea Nitrogen 21 mg/dL Normal 6-24 Creatinine 0.87 mg/dL Normal 0.51-0.95 BUN/Creatinine Ratio 24.1 High 8-20 Total Protein 6.2 g/dL Low 6.4-8.9 Globulin 2.1 g/dL Normal 2-4 Albumin/Globulin Ratio 2.0 Normal 1-3 Alkaline Phosphatase 145 U/L High 34-104 Alt 27 U/L Normal 7-52 Ast 24 U/L Normal 13-39 Egfr Non- 68.4 >60 Egfr 82.7 >60 3 Lipid Profile 02/11/2019 [facility] Triglycerides 130 mg/dL 4 (Trig/Chol/HDL) [address] [place] [address] [phone] Cholesterol 158 mg/dL 5 HDL Cholesterol 37.4 mg/dL 6 LDL Cholesterol 95 mg/dL 7 Laboratory test 02/11/2019 [facility] Lactic Acid 0.8 mmol/L Normal 0.5-2.0 [address] [place] [address] [phone] TSH (Thyroid Stim Horm) 4.81 mcIU/mL Normal 0.34-5.60 Hemoglobin A1c (Glyco HGB) 5.4 % Normal 4.0-5.6 9 Urine Culture And 02/11/2019 [facility] Urine SEE RESULT [address] [place] [place] [address] [phone] Laboratory test 02/11/2019 [facility] Point of 71 mg/dL Normal 70-1 [address] Care Glucose 00 [place] [address] [phone] CBC Auto Diff 02/06/2019 [facility] White Blood 5.4 10^3/uL Normal 3.5- [address] Count 10.8 [place] [address] [phone] Red Blood Count 4.44 10^6/uL Normal 3.70-4.87 Hemoglobin 13.0 g/dL Normal 12.0-16.0 Hematocrit 38 % Normal 35-47 Mean Corpuscular Volume 86 fL Normal 80-97 Mean Corpuscular Hemoglobin 29 pg Normal 27-31 Mean Corpuscular HGB Conc 34 g/dL Normal 31-36 Red Cell Distribution Width 14 % Normal 10-15 Platelet Count 219 10^3/uL Normal 150-450 Mean Platelet Volume 7.2 fL Low 7.4-10.4 Abs Neutrophils 4.3 10^3/uL Normal 1.5-7.7 Abs Lymphocytes 0.7 10^3/uL Low 1.0-4.8 Abs Monocytes 0.2 10^3/uL Normal 0-0.8 Abs Eosinophils 0.1 10^3/uL Normal 0-0.6 Abs Basophils 0.0 10^3/uL Normal 0-0.2 Abs Nucleated RBC 0.0 10^3/uL Granulocyte % 80.4 % Lymphocyte % 12.9 % Monocyte % 4.2 % Eosinophil % 1.8 % Basophil % 0.7 % Nucleated Red Blood Cells % 0.0 Iron & Iron Binding 02/06/2019 [facility] Iron 60 g/dL Normal 50-[address] [place] [address] [phone] Unsaturated Iron Binding < 311 g/dL Total Iron Binding Capacity 326 g/dL Normal 250-450 Transferrin 233 mg/dL Normal 203-362 % Iron Saturation 18 % Normal 15-55 Comp Metabolic 02/06/2019 [facility] Sodium 143 mmol/L Normal 135-[address] [place] [address] [phone] Potassium 3.8 mmol/L Normal 3.5-5.0 Chloride 109 mmol/L Normal 101-111 Co2 Carbon Dioxide 27 mmol/L Normal 22-32 Anion Gap 7 mmol/L Normal 2-11 Glucose 104 mg/dL High 70-100 Blood Urea Nitrogen 23 mg/dL Normal 6-24 Creatinine 0.93 mg/dL Normal 0.51-0.95 BUN/Creatinine Ratio 24.7 High 8-20 Calcium 9.6 mg/dL Normal 8.6-10.3 Total Protein 6.3 g/dL Low 6.4-8.9 Albumin 4.1 g/dL Normal 3.2-5.2 Globulin 2.2 g/dL Normal 2-4 Albumin/Globulin Ratio 1.9 Normal 1-3 Total Bilirubin 0.80 mg/dL Normal 0.2-1.0 Alkaline Phosphatase 153 U/L High 34-104 Alt 27 U/L Normal 7-52 Ast 15 U/L Normal 13-39 Egfr Non- 63.3 >60 Egfr 76.6 >60 13 Laboratory test 02/06/2019 [facility] Ferritin 68.2 Normal 11- [address] ng/[place] [address] [phone] Lipid Profile 01/31/2019 [facility] Triglycerides 154 mg/dL 15 (Trig/Chol/HDL) [address] [place] [address] [phone] Cholesterol 186 mg/dL 16 HDL Cholesterol 43.7 mg/dL 17 LDL Cholesterol 112 mg/dL 18 Laboratory test 10/12/2018 [facility] Potassium 3.9 mmol/L Normal 3.5-5.[address] [place] [address] [phone] Ast Redraw 15 U/L Normal 13-39 CBC Auto 10/12/2018 [facility] White Blood 6.9 10^3/uL Normal 3.5-10.[address] [place] [address] [phone] Red Blood Count 4.95 10^6/uL High 3.70-4.87 Hemoglobin 14.4 g/dL Normal 12.0-16.0 Hematocrit 42 % High 33-41 Mean Corpuscular Volume 85 fL Normal 80-97 Mean Corpuscular Hemoglobin 29 pg Normal 27-31 Mean Corpuscular HGB Conc 34 g/dL Normal 31-36 Red Cell Distribution Width 14 % Normal 10.5-15 Platelet Count 216 10^3/uL Normal 150-450 Mean Platelet Volume 6.6 fL Low 7.4-10.4 Abs Neutrophils 5.7 10^3/uL Normal 1.5-7.7 Abs Lymphocytes 0.7 10^3/uL Low 1.0-4.8 Abs Monocytes 0.4 10^3/uL Normal 0-0.8 Abs Eosinophils 0.1 10^3/uL Normal 0-0.6 Abs Basophils 0 10^3/uL Normal 0-0.2 Abs Nucleated RBC 0 10^3/uL Granulocyte % 82.6 % Lymphocyte % 9.7 % Monocyte % 5.4 % Eosinophil % 1.7 % Basophil % 0.6 % Nucleated Red Blood Cells % 0 Laboratory 10/12/2018 [facility] Lactic Acid 0.8 mmol/L Normal 0.5-2.0 19 test finding [address] [place] [address] [phone] Inr/Protime 10/12/2018 [facility] Inr 0.98 Normal 0.82-1.[address] [place] [address] [phone] Laboratory 10/12/2018 [facility] Partial 32.9 Normal 26.0- 36.3 test finding [address] [place] [address] [place] [address] Time PTT [phone] Comp Metabolic 10/12/2018 [facility] Sodium 142 mmol/L Normal 135-[address] [place] [address] [phone] Chloride 110 mmol/L Normal 101-111 Co2 Carbon Dioxide 24 mmol/L Normal 22-32 Glucose 98 mg/dL Normal 70-100 Blood Urea Nitrogen 17 mg/dL Normal 6-24 Creatinine 0.98 mg/dL High 0.51-0.95 BUN/Creatinine Ratio 17.3 Normal 8-20 Calcium 9.6 mg/dL Normal 8.6-10.3 Total Protein 7.1 g/dL Normal 6.4-8.9 Albumin 4.4 g/dL Normal 3.2-5.2 Globulin 2.7 g/dL Normal 2-4 Albumin/Globulin Ratio 1.6 Normal 1-3 Total Bilirubin 0.80 mg/dL Normal 0.2-1.0 Alkaline Phosphatase 132 U/L High 34-104 Alt 20 U/L Normal 7-52 Egfr Non- 59.8 >60 Egfr 72.4 >60 21 Potassium TNP mmol/L 3.5-5.0 22 Anion Gap 8 mmol/L Normal 2-11 Ast TNP U/L 13-39 23 Lipid Profile 10/12/2018 [facility] Triglycerides 255 mg/dL 24 (Trig/Chol/HDL) [address] [place], [place] [address] [phone] Cholesterol 282 mg/dL 25 HDL Cholesterol 39.7 mg/dL 26 LDL Cholesterol 191 mg/dL 27 Laboratory test 10/12/2018 [facility] Troponin-I 0.00 ng/mL < 0.04 28 finding (TnI) [place], [place] [id number] [phone] Type & Screen 10/12/2018 [facility] Patient Blood O Positive [address] [place], [place] [address] [phone] Antibody Screen NEGATIVE Laboratory test 10/12/2018 [facility] Magnesium 2.5 mg/dL Normal 1.9-2.[address] [place], [place] [address] [phone] TSH (Thyroid Stim Horm) 2.38 mcIU/mL Normal 0.34-5.60 30 Laboratory 10/12/2018 [facility] Point of Care 77 mg/dL Normal 70-[address] Glucose [place], [place] [address] [phone] Lipid Profile 10/07/2018 [facility] Triglycerides 431 32 (Trig/Chol/HDL [address] mg/dL ) [place] [address] [phone] Cholesterol 294 mg/dL 33 HDL Cholesterol 41.1 mg/dL 34 LDL Cholesterol (SEE NOTE) mg/dL 35 Laboratory 10/07/2018 [facility] TSH (Thyroid 1.29 Normal 0.34 -5.60 test finding [address] Stim Horm) mcIU/[place] [address] [phone] LDL Cholesterol Direct 203 mg/dL 36 1 Standard intensity warfarin therapeutic range: 2.0-3.0 High intensity warfarin therapeutic range: 2.5-3.5 2 Troponin-I testing on Plasma Separator Tubes (PST) has a known false positive rate of 0.20-0.40%. All positive troponins reflex immediately to secondary confirmatory testing. Using the [employer] DxI 800 Access Immunoassay systems, the 99th percentile upper reference limit was demonstrated to be < 0.03 ng/mL. 3 Because ethnic data is not always readily available, this report includes an eGFR for both -Americans and non- Americans. The National Kidney Disease Education Program (NKDEP) does not endorse the use of the MDRD equation for patients that are not between the ages of 18 and 70, are , have extremes of body size, muscle mass, or nutritional status, or are non- or non-. According to the National Kidney Foundation, irrespective of diagnosis, the stage of the disease is based on the level of kidney function: Stage Description GFR(mL/min/1.73 m(2)) 1 Kidney damage with normal or decreased GFR 90 2 Kidney damage with mild decrease in GFR 60-89 3 Moderate decrease in GFR 30-59 4 Severe decrease in GFR 15-29 5 Kidney failure <15 (or dialysis) 4 Desirable: <150 Borderline High: 150-199 High: 200-499 Very High: >500 5 Desirable: <200 Borderline High: 200-239 High: >239 6 Low: <40 Desirable: 40-60 High: >60 7 Desirable: <100 Near Optimal: 100-129 Borderline High: 130-159 High: 160-189 Very High: >189 8 [facility] Severe Sepsis and Septic Shock Management Bundle Measure requires all lactic acids initially measuring >2.0 mmol/L be repeated. 9 Therapeutic target for the treatment of diabetes mellitus patients is <7% HBA1C, and in selective patients <6.0%. Please refer to [place] [employer] Association diabetic care guidelines for further information. 10 SEE RESULT BELOW Name: MILVIA COUCH : [address]: Terese Berry MD Acct: [id number] Unit: [id number] AGE: 53 Location: [place] [address] Re02/11/19 Dis: 02/12/19 SEX: F Status: DIS IN SPEC: [id number] MAGALY: 02/11/[address]: Bin Pastor MD REQ: [id number] RECD: 02/11/19 STATUS: ALAN COOPER DR: Ayleen Bobby MD _ SOURCE: URINE [facility]: ORDERED: Urine Culture Procedure Result Reported Site Urine Culture Final 02/13/19- 0856 ML Organism 1 ESCHERICHIA COLI [place] Count >100,000 (Many) CFU/ML 1. ESCHERICHIA COLI M.I.C. RX --------- ------ Ampicillin <=2 S Cefazolin <=4 S Cefepime <=1 S Ceftriaxone <=1 S Ciprofloxacin <=0.25 S Gentamicin <=1 S Levofloxacin <=0.12 S Meropenem <=0.25 S Nitrofurantoin <=16 S Tetracycline <=1 S Pipercillin/Tazobactam <=4 S Trimethoprim/Sulfamethoxazole <=20 S Amoxicillin/Clavulanic Acid <=2 S Aztreonam <=1 S Contact the Microbiology Department for any additional antibiotic reporting. * ML - Main Lab . END OF REPORT DEPARTMENT OF PATHOLOGY, [address] [place] [address] Hany Damon M.D. Director [facility] # [id number] Legal Secretary Receptionist: [id number] Because ethnic data is not always readily available, this report includes an eGFR for both -Americans and non- Americans. The National Kidney Disease Education Program (NKDEP) does not endorse the use of the MDRD equation for patients that are not between the ages of 18 and 70, are , have extremes of body size, muscle mass, or nutritional status, or are non- or non-. According to the National Kidney Foundation, irrespective of diagnosis, the stage of the disease is based on the level of kidney function: Stage Description GFR(mL/min/1.73 m(2)) 1 Kidney damage with normal or decreased GFR 90 2 Kidney damage with mild decrease in GFR 60-89 3 Moderate decrease in GFR 30-59 4 Severe decrease in GFR 15-29 5 Kidney failure <15 (or dialysis) 14 [id number] 15 Desirable: <150 Borderline High: 150-199 High: 200-499 Very High: >500 16 Desirable: <200 Borderline High: 200-239 High: >239 17 Low: <40 Desirable: 40-60 High: >60 18 Desirable: <100 Near Optimal: 100-129 Borderline High: 130-159 High: 160-189 Very High: >189 19 [facility] Severe Sepsis and Septic Shock Management Bundle Measure requires all lactic acids initially measuring >2.0 mmol/L be repeated. 20 Standard intensity warfarin therapeutic range: 2.0-3.0 High intensity warfarin therapeutic range: 2.5-3.5 21 Because ethnic data is not always readily available, this report includes an eGFR for both -Americans and non- Americans. The National Kidney Disease Education Program (NKDEP) does not endorse the use of the MDRD equation for patients that are not between the ages of 18 and 70, are , have extremes of body size, muscle mass, or nutritional status, or are non- or non-. According to the National Kidney Foundation, irrespective of diagnosis, the stage of the disease is based on the level of kidney function: Stage Description GFR(mL/min/1.73 m(2)) 1 Kidney damage with normal or decreased GFR 90 2 Kidney damage with mild decrease in GFR 60-89 3 Moderate decrease in GFR 30-59 4 Severe decrease in GFR 15-29 5 Kidney failure <15 (or dialysis) 22 Specimen Hemolyzed. Result may not be valid. Unable to report test result due to hemolysis. 23 Unable to report test result due to hemolysis. 24 Desirable: <150 Borderline High: 150-199 High: 200-499 Very High: >500 25 Desirable: <200 Borderline High: 200-239 High: >239 26 Low: <40 Desirable: 40-60 High: >60 27 Desirable: <100 Near Optimal: 100-129 Borderline High: 130-159 High: 160-189 Very High: >189 28 Troponin-I testing on Plasma Separator Tubes (PST) has a known false positive rate of 0.20-0.40%. All positive troponins reflex immediately to secondary confirmatory testing. Using the [employer] DxI 800 Access Immunoassay systems, the 99th percentile upper reference limit was demonstrated to be < 0.03 ng/mL. 29 Specimen hemolyzed. Unable to perform tests requested. [id number] was called for recollect at 1853 on 10/12/18 by [id number]. 30 Specimen hemolyzed. Unable to perform tests requested. [id number] was called for recollect at 1853 on 10/12/18 by [id number]. 31 Legal Secretary Receptionist: [id number] Desirable: <150 Borderline High: 150-199 High: 200-499 Very High: >500 33 Desirable: <200 Borderline High: 200-239 High: >239 34 Low: <40 Desirable: 40-60 High: >60 35 Unable to calculate LDL as triglyceride is > 400 36 Desirable: <100 Near Optimal: 100-129 Borderline High: 130-159 High: 160-189 Very High: >189 Procedures Date Code Description Status 02/11/2019 359611451 Diabetic Retinal Eye Exam Completed 10/13/2018 50232 ECHO Transthorasic Realtime 2D W Doppler & Color Flow Completed Hosp 08/22/2018 50562 Polysomnography Sleep Staging 4+ Parameters Completed 09/13/2017 [id number] Colonoscopy Completed Medical Devices Description No Information Available Encounters Type Date Location Provider Dx Diagnosis Office Visit 10/13/2018 Neurohospitalist [place], R20.0 Anesthesia of 7:00a Clinic Shavon.Makenna skin H53.8 Other visual disturbances Z86.73 Prsnl hx of TIA (TIA), and cereb infrc w/o resid deficits Office Visit 10/13/2018 8:20a [facility] R29.810 Facial Assoc,nia León NP weakness Hospitalists H53.8 Other visual disturbances Office Visit 10/12/2018 8:19a [facility] R29.810 Facial Assoc,nia Hylton NP weakness Hospitalists H53.8 Other visual disturbances Office Visit 10/09/2018 12:20p [facility] Internal Ayleen Bobby, G47.33 Obstructive sleep Medicine - Ccmob apnea (adult) (pediatric) F33.9 Major depressive disorder, recurrent, unspecified E78.2 Mixed hyperlipidemia Office Visit 09/17/2018 [facility] G47.33 Obstructive sleep 3:00p [facility], RN, apnea (adult) Juan FEATHER DRYING MACHINE OPERATOR-BC (pediatric) E66.9 Obesity, unspecified Z68.37 Body mass index (BMI) 37.0-37.9, adult Assessments Date Code Description Provider 02/18/2019 G40.89 Other seizures Ayleen Bobby MD 02/18/2019 N39.0 Urinary tract infection, site not Ayleen Bobby MD specified 02/18/2019 I10 Essential (primary) hypertension Ayleen Bobby MD 02/18/2019 E78.2 Mixed hyperlipidemia Ayleen Bobby MD 02/18/2019 K21.9 Gastro-esophageal reflux disease Ayleen Bobby MD without esophagitis 02/12/2019 R56.9 Unspecified convulsions Lacey Blane, ACID LOADER 02/12/2019 R53.1 Weakness Lacey Blane, ACID LOADER 02/12/2019 N39.0 Urinary tract infection, site not Lacey Blane, ACID LOADER specified 02/12/2019 I10 Essential (primary) hypertension Lacey Blane, ACID LOADER 02/12/2019 Z86.73 Personal history of transient Lacey Blane, ACID LOADER ischemic attack (TIA), and cerebral infarction without residual deficits 02/12/2019 F32.9 Major depressive disorder, single Lacey Blane, ACID LOADER episode, unspecified 02/11/2019 R56.9 Unspecified convulsions Lacey Blane, ACID LOADER 02/11/2019 R53.1 Weakness Lacey Blane, ACID LOADER 02/11/2019 N39.0 Urinary tract infection, site not Lacey Blane, ACID LOADER specified 02/11/2019 I10 Essential (primary) hypertension Lacey Blane, ACID LOADER 02/11/2019 Z86.73 Personal history of transient Lacey Blane, ACID LOADER ischemic attack (TIA), and cerebral infarction without residual deficits 02/11/2019 F32.9 Major depressive disorder, single Lacey Blane, ACID LOADER episode, unspecified 10/13/2018 R20.0 Anesthesia of skin [place] Green M.D. 10/13/2018 R29.810 Facial weakness Josefa León, CHLOE 10/13/2018 H53.8 Other visual disturbances [place] Green M.D. 10/13/2018 G45.9 Transient cerebral ischemic attack, Junior Colin M.D. , FACC, unspecified FASNC 10/13/2018 Z86.73 Prsnl hx of TIA (TIA), and cereb [place] M.D. infrc w/o resid deficits 10/13/2018 H53.8 Other visual disturbances Josefa León, ACID LOADER 10/12/2018 R29.810 Facial weakness Naya Hylton, ACID LOADER 10/12/2018 H53.8 Other visual disturbances Naya Harrisckney, ACID LOADER 10/09/2018 G47.33 Obstructive sleep apnea (adult) Ayleen Bobby MD (pediatric) 10/09/2018 F33.9 Major depressive disorder, Ayleen Bobby MD recurrent, unspecified 10/09/2018 E78.2 Mixed hyperlipidemia Ayleen Bobby MD 09/17/2018 G47.33 Obstructive sleep apnea (adult) [place] Walker DNP, RN, (pediatric) [facility] 09/17/2018 E66.9 Obesity, unspecified [place] Walker DNP, RN, [facility] 09/17/2018 Z68.37 Body mass index (BMI) 37.0-37.9, [place] Walker DNP, RN, adult [facility]- 08/22/2018 G47.33 Obstructive sleep apnea (adult) Tiffanie Badillo MD (pediatric) Plan of Treatment Future Appointment(s):08/19/2019 1:20 pm - Ayleen Bobby MD at [facility] Internal Medicine - [facility]03/24/2019 11:15 am - [place] Walker DNP, RN, [facility] at [facility]04/10/2019 1:00 pm - Ayleen Bobby MD at [facility] Internal Medicine - [facility]02/18/2019 - Ayleen Bobby MDG40.89 Other seizuresComments:Continue KeppraF/U neurology in 4 ymadfT36.0 Urinary tract infection, site not specifiedNew Labs:Urinalysis Profile, Ordered: 02/18/19I10 Essential (primary) hypertensionComments:Your blood pressure is fine. Continue the same medicationFollow up:F/U 6 months for AWVE78.2 Mixed hyperlipidemiaNew Medication:Atorvastatin Calcium 80 mg - 1 by mouth every dayComments:Stay on the increased dose of atorvastatin for nowPl repeat labs to check for liver functions in 4 [id number] Gastro-esophageal reflux disease without esophagitisComments:Reduce the omeprazole to 40 mg once a day. I have sent in new script. Functional Status Description No Information Available Mental Status Description No Information Available Referrals Description No Information Available
--- NOTE | 2019-02-23 20:51 | ED ---
Seizure - HPI Summary HPI Summary: Patient complains of 4 seizures today, each lasting a couple minutes with an hour in between approximately. Patient has history of seizures as a response to strobe lights, or lights in her eyes. Patient states she went 8 years without seizures and without medication by avoiding strobe lights. One week ago patient had a single seizure during an ophthalmology exam, came to this ED for further evaluation. Patient was placed on Keppra 500 mg twice a day by Dr. Butts. Patient has been compliant with medication. Denies exposure to strobe lights or lights denies today. For seizures for unknown reason. Last seizure witnessed by EMS. EMS gave Versed 5 mg IV. No further seizures since. Patient denies any symptoms of illness, states was at baseline prior to procedure. Denies trauma, fever, cough, sore throat, CP, SOB, N/360, abdominal pain, change in urine, change in BM. Denies any symptoms other than mild headache status post seizures here in the ED. 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 Medical history is HTN, DM, HDL. Seizures described as grand mal by EMS. - History Of Current Complaint Chief Complaint: EDSeizure Time Seen by Provider: 02/23/19 20:46 Hx Obtained From: Patient, Family/Featherer Onset/Duration: Sudden Onset, Lasting Hours Severity Of Seizure: Self-Limited Location Of Seizure: All Extremities Aggravating Factor(s): Nothing Alleviating Factor(s): Spontaneous Resolution Associated Signs And Symptoms: Negative - Allergies/Home Medications Allergies/Adverse Reactions: Allergies Allergy/AdvReac Type Severity Reaction Status Date / Time diphenhydramine Allergy Anaphylatic Verified 01/07/18 15:42 [From Benadryl] Shock latex Allergy blisters Verified 01/07/18 15:42 on skin Penicillins Allergy Rash Verified 01/07/18 15:42 phenobarbital Allergy Unknown Verified 01/07/18 15:42 Reaction Details propoxyphene Allergy See Comment Verified 01/07/18 15:42 [From Darvocet-N] Sulfa (Sulfonamide Allergy Rash Verified 01/07/18 15:42 Antibiotics) Home Medications: Home Medications Magnesium 500 mg PO DAILY 02/23/19 [History Confirmed 02/23/19] Omeprazole 40 mg PO BID 02/23/19 [History Confirmed 02/23/19] PMH/Surg Hx/FS Hx/Imm Hx Endocrine/Hematology History: Reports: Hx Anticoagulant Therapy, Hx Diabetes, Hx Thyroid Disease - hypo Cardiovascular History: Reports: Hx Deep Vein Thrombosis - x3 in LUE, Hx Hypercholesterolemia, Hx Hypertension - TAKES MEDICATION Denies: Hx Pacemaker/ICD, Other Cardiovascular Problems/Disorders Respiratory History: Reports: Hx Asthma Denies: Other Respiratory Problems/Disorders GI History: Reports: Hx Gastroesophageal Reflux Disease, Other GI Disorders - CA OF ESOPH/ ESOPH REMOVED. 10/2017 History: Denies: Hx Renal Disease Musculoskeletal History: Reports: Hx Fibromyalgia Denies: Other Musculoskeletal History Sensory History: Reports: Hx Contacts or Glasses - glasses Denies: Hx Hearing Aid Opthamlomology History: Reports: Hx Contacts or Glasses - glasses Neurological History: Reports: Hx CVA, Hx Nerve Disease - fibromyalgia, Hx Seizures - with strobe lights, no meds, last one 3-4 yrs ago, Hx Transient Ischemic Attacks (TIA) - October 2017 Denies: Other Neuro Impairments/Disorders Psychiatric History: Reports: Hx Anxiety - on meds, Hx Depression - on meds Denies: Hx Panic Disorder - Cancer History Cancer Type, Location and Year: esophagus Hx Chemotherapy: Yes Hx Radiation Therapy: Yes - Surgical History Surgery Procedure, Year, and Place: HYSTERECTOMY, 2007, [place]. GALLBLADDER, 2009 , [place]. ESOPHAGUS REMOVAL Hx Anesthesia Reactions: Yes - diff to wake up Infectious Disease History: No Infectious Disease History: Reports: Hx of Known/Suspected MRSA, Hx Shingles Denies: Traveled Outside the [place] in Last 30 Days - Family History Known Family History: Positive: None, Other - No FHx of breast CA Family History: No FHx of breast CA - Social History Alcohol Use: None Hx Substance Use: No Substance Use Type: Reports: None Hx Tobacco Use: Yes Smoking Status (MU): Former Smoker Review of Systems Constitutional: Negative Eyes: Negative ENT: Negative Cardiovascular: Negative Respiratory: Negative Gastrointestinal: Negative Genitourinary: Negative Musculoskeletal: Negative Skin: Negative Positive: Headache All Other Systems Reviewed And Are Negative: Yes Physical Exam - Summary Physical Exam Summary: Somnolent but alert and oriented 3 when aroused. Coherent in speech Triage Information Reviewed: Yes Vital Signs On Initial Exam: Initial Vitals Temp Pulse Resp BP Pulse Ox 98.0 F 99 18 108/73 99 02/23/19 20:34 02/23/19 20:34 02/23/19 20:34 02/23/19 20:34 02/23/19 20:34 Vital Signs Reviewed: Yes Appearance: Positive: Well-Appearing Skin: Positive: Warm Head/Face: Positive: Normal Head/Face Inspection Eyes: Positive: Normal Neck: Positive: Supple Respiratory/Lung Sounds: Positive: Clear to Auscultation Cardiovascular: Positive: Normal Abdomen Description: Positive: Nontender Musculoskeletal: Positive: Normal Neurological: Positive: Normal Psychiatric: Positive: Normal AVPU Assessment: Alert - Greg Coma Scale Best Eye Response: 4 - Spontaneous Best Motor Response: 6 - Obeys Commands Best Verbal Response: 5 - Oriented Coma Scale Total: 15 Diagnostics - Vital Signs Vital Signs Temp Pulse Resp BP Pulse Ox 02/23/19 20:36 97 108/73 97 02/23/19 20:34 98.0 F 95 18 108/73 97 - Laboratory Result Diagrams: 02/23/19 21:08 02/23/19 21:08 Lab Statement: Any lab studies that have been ordered have been reviewed, and results considered in the medical decision making process. Course/Dx - Course Course Of Treatment: Patient complains of 4 seizures today, each lasting a couple minutes with an hour in between approximately. Patient has history of seizures as a response to strobe lights, or lights in her eyes. Patient states she went 8 years without seizures and without medication by avoiding strobe lights. One week ago patient had a single seizure during an ophthalmology exam , came to this ED for further evaluation. Patient was placed on Keppra 500 mg twice a day by Dr. Butts. Patient has been compliant with medication. Denies exposure to strobe lights or lights denies today. For seizures for unknown reason. Last seizure witnessed by EMS. EMS gave Versed 5 mg IV. No further seizures since. Patient denies any symptoms of illness, states was at baseline prior to procedure. Denies trauma, fever, cough, sore throat, CP, SOB, N/360, abdominal pain, change in urine, change in BM. Denies any symptoms other than mild headache status post seizures here in the ED. 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 Medical history is HTN, DM, HDL. Seizures described as grand mal by EMS. Vital signs within normal limits. Labs unremarkable or at patient baseline. Discussed patient with Dr. Green neurology on-call who recommended transfer to [place] due to lack of EEG monitoring [place] [facility] Discussed patient with Dr. Duarte neurology at [facility] who stated patient did not need EEG monitoring as patient seizures were not subclinical. Patient seizures have been visually obvious and could then be medicated. Discussed patient again with Dr. Green who agreed to admission here [place] [facility] Patient admitted to hospitalist. - Diagnoses Provider Diagnoses: Seizure Discharge ED - Sign-Out/Discharge Documenting (check all that apply): Patient Departure All imaging exams completed and their final reports reviewed: No - Discharge Plan Condition: Improved Disposition: ADMITTED TO [facility] - Billing Disposition and Condition Condition: IMPROVED Disposition: Admitted to [facility]
[2019-02-23] MEDS ORDERED: Acetaminophen TAB* 325 MG PO ONE (21:49)
[2019-02-23 22:32] LABS: ABS Basophils 0.1 10^3/ul (0-0.2); ABS Eosinophils 0.1 10^3/ul (0-0.6); ABS Monocytes 0.4 10^3/ul (0-0.8); ABS Neutrophils 4.7 10^3/ul (1.5-7.7); Eosinophil % 1.7 %; Hematocrit 36 % (35-47); Hemoglobin 12.6 g/dL (12.0-16.0); Lymphocyte % 16.3 %; Mean Corpuscular HGB Conc 35 g/dL (31-36); Mean Corpuscular Hemoglobin 30 pg (27-31); Mean Corpuscular Volume 85 fL (80-97); Mean Platelet Volume 7.1 fL (7.4-10.4); Nucleated Red Blood Cells % 0.1; Platelet Count 200 10^3/uL (150-450); Red Blood Count 4.21 10^6 /uL (3.70-4.87); Red Cell Distribution Width 14 % (10-15); White Blood Count 6.2 10^3/uL (3.5-10.8)
[2019-02-23 22:45] LABS: Albumin 3.7 g/dL (3.2-5.2); Albumin/Globulin Ratio 1.6 (1-3); C Reactive Protein 2.95 mg/L (<8.01); Calcium 8.6 mg/dL (8.6-10.3); EGFR African American 86.2 (>60); EGFR Non-African American 71.2 (>60); Globulin 2.3 g/dL (2-4); Potassium 3.8 mmol/L (3.5-5.0); Total Bilirubin 0.3 mg/dL (0.2-1.0)
[2019-02-23] MEDS ORDERED: NS 0.9% 1000 ML** 1,000 ML IV ONE (23:28)
[2019-02-23] MEDS ORDERED: levETIRAcetam 500 MG IVPREMIX* 500 MG/100 ML BAG IVPB ONE ×2 (23:28→23:50)
[2019-02-24] MEDS ORDERED: Acetaminophen TAB* 325 MG PO PRN (00:54)
[2019-02-24] MEDS ORDERED: Lorazepam PYXIS KEY PRN (00:54)
[2019-02-24] MEDS ORDERED: LORazepam INJ* 2 MG/ML 1 ML VIAL IV PUSH PRN (00:54)
[2019-02-24] MEDS ORDERED: Heparin VIAL(*) 5000 UNITS/ML VIAL (FIVE THOUSAND) SUBCUT SCH (06:00)
--- NOTE | 2019-02-24 06:11 | HP ---
CC: Dr. Bobby; Dr. Green * HISTORY AND PHYSICAL: DATE OF ADMISSION: 02/24/19 TIME OF EVALUATION: 12:40 a.m. PRIMARY CARE PROVIDER: Dr. Bobby. CONSULTING NEUROLOGIST: Dr. Green. CHIEF COMPLAINT: "I had 4 seizures today." HISTORY OF PRESENT ILLNESS: Ms. Couch is a 53-year-old female with a past medical history of epilepsy, CVA, esophageal cancer, type 2 diabetes, hypertension, fibromyalgia, depression, hypothyroidism, probable PICC line- related DVT, who presented to the emergency room after 4 seizures in 1 day. The patient was admitted to [facility] on 02/11/19 after having a seizure. At that time, she had gone to an eye exam, and initially there was concern for possible stroke as the patient had left arm weakness and slurred speech. The patient was admitted for further workup, seen in consultation by Neurology (Dr. Dunaway) , and his impression was of a focal onset epilepsy. He thought the patient had multiple episodes and her MRI of the brain did not show evidence of an old stroke, so he thought that even the episode that she had a year ago was in fact a postictal event rather than a stroke. His recommendation was for the patient to be treated with Keppra. As part of her workup from the admission, the patient had a CT of the brain without contrast that showed no acute intracranial pathology and an MRI of the brain that also showed no acute intracranial pathology. The patient states that she was in her usual state of health this morning. She was watching video on YouTube when she had a seizure. She states that she had 3 seizures at home and another one in the ambulance. As per ED notes, the patient received 5 mg of Versed by EMS, but when she arrived to the emergency room, she was arousable, although sedated. The patient states that she was in her usual state of health this morning and had no other complaints. On her prior admission in the end of January, she had a urinary tract infection and that could have lowered her seizure threshold. She states that at this time she has no urinary complaints. She complains of a mild headache, especially on the right side of her head that she states started after her last seizure. She denies nausea, vomiting, diarrhea, photophobia, urinary complaints, fever, chest pain, palpitations, or other complaints. PAST MEDICAL HISTORY: 1. Epilepsy. 2. Episode of left-sided weakness in October 2017 - CVA versus postictal state ( please see Dr. Dunaway's consult). 3. Esophageal cancer, status post resection, chemo, and radiation in June 2017. 4. Type 2 diabetes, diet controlled. 5. Hypertension. 6. Fibromyalgia. 7. Depression. 8. Hypothyroidism, not on medication currently. 9. Probable PICC line-induced DVT. PAST SURGICAL HISTORY: 1. Status post esophageal resection. 2. Status post cholecystectomy. 3. Status post tubal ligation. 4. Status post hysterectomy. MEDICATION LIST: 1. Aspirin 81 mg p.o. daily. 2. Atorvastatin 80 mg p.o. daily. 3. EpiPen 0.3 mg IM once as needed for anaphylaxis. 4. Keppra 500 mg p.o. b.i.d. 5. Lisinopril 5 mg p.o. daily. 6. Magnesium 500 mg p.o. daily. 7. Omeprazole 40 mg p.o. b.i.d. 8. Sertraline 100 mg p.o. b.i.d. ALLERGIES: The patient has reactions to BENADRYL, LATEX, PENICILLIN, PHENOBARBITAL, PROPOXYPHENE, and SULFA. FAMILY HISTORY: The patient is not aware as she is adopted. SOCIAL HISTORY: The patient was a smoker, a pack and a half a day for 10 years. She quit in . No history of alcohol or drug use. Surrogate decision maker is her mother, Lisa Boland, phone number is [phone]. REVIEW OF SYSTEMS: A 14-point review of systems was performed, and all the pertinent negatives and positive findings are in the HPI. PHYSICAL EXAMINATION GENERAL: The patient is an obese, middle-aged lady, lying on the ED stretcher, in no acute distress. VITAL SIGNS: Temperature 97.1, heart rate is 80, respiratory rate is 16, oxygen saturation is 97% on room air, blood pressure is 114/83. HEENT: Pupils are equal. Moist mucous membranes. CHEST: Breath sounds are present bilaterally with no added sounds. CVS: Normal S1, S2. Regular rate and rhythm. ABDOMEN: Soft, obese. Bowel sounds present. EXTREMITIES: No edema. NEURO: The patient is alert, oriented x3. Able to move all 4 extremities. Face is symmetric. There is no focal neurological deficit. LABORATORY AND IMAGING DATA: The patient had a CBC that showed a WBC of 6.2, hemoglobin of 12.6, hematocrit of 36, platelets of 200 with 75% neutrophils. Chemistry showed sodium 142, potassium 3.8, chloride 111, bicarb of 26, BUN of 26, creatinine of 0.84, glucose of 93. Calcium is 8.6. LFTs are normal. Alk phos is 141. EKG done on 02/23/19 at 11:55 p.m. shows sinus rhythm at 85% beats per minute with no acute ischemic changes, no significant change when compared to her prior EKG from 02/11/19. ASSESSMENT AND PLAN: Ms. Couch is a 53-year-old female with a past medical history of obesity, epilepsy, possible cerebrovascular accident, type 2 diabetes , hypertension, recent admission to [facility] [place] for seizures, who presented to the emergency room after having 4 seizures in 1 day. 1. Epilepsy. Neurology consultation was requested with Dr. Green. The patient will be admitted to the intensive care unit as she has had four episodes of seizures in 1 day. She received 1000 mg of Keppra in the emergency room, and we are going to increase her Keppra to 750 twice a day. She will also have lorazepam ordered as needed for seizures. Initially, no [facility] imaging was going to be performed, but now the patient is complaining of a headache, so I am going to order a CT of the brain. She will be monitored in the ICU, and she we will have seizure precautions. The patient has no urinary complaints at this time, but on her prior admission, I believe UTI was one of the issues lowering her seizure threshold, so I am going to repeat a urinalysis. 2. History of possible cerebrovascular accident. We will continue aspirin and atorvastatin. 3. Hypertension. We will continue lisinopril. 4. Type 2 diabetes. It is diet controlled. 5. Depression. We will continue sertraline. 6. DVT prophylaxis: The patient has a score of 4 on the DVT Prophylaxis Assessment Guide. She will be started on subcutaneous heparin. 7. Code status is full. TIME SPENT: Approximately 55 minutes were spent with patient interview, medical records review, physical examination to complete the admission; more than half this time was spent [id number] with the patient and coordination of care. [id number]/[facility] #: [id number] [facility]
[2019-02-24] MEDS ORDERED: Atorvastatin* 80 MG TAB PO SCH (09:00)
[2019-02-24] MEDS ORDERED: levETIRAcetam TAB* 500 MG PO SCH (09:00)
[2019-02-24] MEDS ORDERED: Aspirin 81 mg CHEW TAB* 81 MG TAB.CHEW PO SCH (09:00)
[2019-02-24] MEDS ORDERED: Pantoprazole TAB * 40 MG TAB PO SCH (09:00)
[2019-02-24] MEDS ORDERED: Lisinopril TAB* 5 MG PO SCH (09:00)
[2019-02-24] MEDS ORDERED: Sertraline* 100 MG TAB PO SCH (09:00)
--- NOTE | 2019-02-24 11:17 | CONS ---
CC: Dr. Pastor * CONSULTATION REPORT: DATE OF CONSULT: 02/24/19 PRIMARY CARE PROVIDER: Dr. Pastor REASON FOR CONSULTATION: Seizures. HISTORY OF PRESENT ILLNESS: Ms. Couch is a very nice 53-year-old female. She has a history of esophageal cancer, status post chemotherapy and surgery with reanastomosis, history of cervical cancer, follows with Oncology. She has a history of a stroke for which I saw her back in September of 2018 and at that time she presented with stroke like symptoms with left-sided numbness and tingling and weakness and at that time it was felt that her stroke was most likely related to a PICC line that she had. She reported having had a history of a stroke 1 year after her esophageal resection. When I saw her back in September, she presented with left- sided facial numbness, blurriness, and what we thought was likely a TIA. Her MRI of the brain at that time showed no intracranial pathology, it was felt that she likely had a TIA, apparently she was not on antiplatelet therapy at that time, but was discharged on dual antiplatelet with a plan to stop the Plavix 30 days afterwards. She is currently on aspirin. She was also sent home on statin. She has a history of diabetes. I recommended given the fact that she had cancer in the past that she has a hypercoagulable workup and she was to follow up with her oncologist, Dr. Gómez for that and for further evaluation. She reports also having a history of seizures that date back to the time that she was a teenager. She states that she had tonic-clonic seizures, was initially put on phenobarbital, but did not tolerate that and had been off of medication for at least 25 years with no seizure-like activity. She did report 1 seizure about 5 years ago, but was somewhat vague about it and did not go on any medications. She states that she did not see a neurologist at that time. The details of her prior seizure history are unclear. She was recently admitted to the hospital on 02/11/19. At that time, she presented with what was initially called a code ray. When she arrived to the ER, she had been to the eye doctor and her eyes were dilated. When the net application support specialist came back into the room, she presented with left-sided weakness and slurred speech and she was sent to the ER. She noted weakness in her left arm, some slurred speech, and she also was sleepy. Her CT scan of the head showed no abnormalities. CT angiogram of the head and neck showed no large vessel occlusion or other abnormalities. During her CT angiogram, as she was being transferred back to the [facility], she had what was described as a tonic-clonic seizure with deviation of her head to the left and deviation of her eyes to the left. The left arm was stiff at her side as well, some clonic movements as well. She was given 2 mg of Ativan and the seizure subsided. She was postictal for several minutes afterwards. At that time, it was felt that she was likely having some postictal hemiparesis. She was not given tPA. She was subsequently discharged home on 500 mg of Keppra b.i.d. and states that she has been taking that medication without difficulty. She states that it makes her a little bit tired. She did have an EEG during that hospitalization, which was read as normal sleep and awake. During that hospitalization, she was also treated for a urinary tract infection as well with antibiotics. She was told not to drive for 6 months and that she needed to report her seizure and she was to follow up with Neurology. Notably, her MRI of the brain did not show any evidence of new strokes or no intracranial abnormalities, and her CT angiogram of the head was negative. She was in her usual state of health yesterday when she was standing by the kitchen counter at about 3 p.m., she states that she knew when it was coming on because her head felt "full." She notes that she had several "staring spells," no loss of bladder or bowel control. No tongue biting, but it was reported that she had seizure-like activity. She apparently had another seizure en route. She was given Versed and by that time she arrived in the ER, she was very somnolent, but there was no further seizure activity. At the time that she had her seizure , she states that she had just been watching [employer]. She does note that her first seizure when she was a teenager occurred while she was in a movie theater , although she is unaware if flashing lights are associated with her seizures. She was admitted to the ICU for closer monitoring overnight. She denies any recent illnesses, fevers, chills. No urinary symptoms. No shortness of breath , chest pain, dyspnea on exertion. No other symptoms. She has not been sick to her stomach. She has been tolerating her medications well without difficulty other than some mild somnolence. Overnight, she has had no further seizure activity. In the ER, she had had her morning dose of 500 mg of Keppra, we loaded her on 1000 mg of Keppra and instructed the ER doctor that we wanted to increase her Keppra to 750 mg p.o. b.i.d. as she has been tolerating it well. She has had no mood changes or other side effects. Because she had had 4 seizures yesterday, she was admitted to the ICU for close monitoring and if she did well today the plan was to discharge her home. PAST MEDICAL HISTORY: As noted above including type 2 diabetes, hypertension, depression, fibromyalgia, hypothyroidism, questionable DVT in the past with possible stroke in the past, esophageal cancer, and cervical cancer. PAST SURGICAL HISTORY: Includes hysterectomy, tubal ligation, esophageal resection with reanastomosis, cholecystectomy. MEDICATIONS: At the time of her admission, her medications included: 1. Atorvastatin 80 mg daily. 2. EpiPen for anaphylaxis. 3. Keppra 500 mg p.o. b.i.d. 4. Magnesium 500 mg p.o. daily. 5. Lisinopril 5 mg daily. 6. Omeprazole 40 mg p.o. b.i.d. 7. Sertraline 100 mg p.o. b.i.d. ALLERGIES: To BENADRYL, PHENOBARBITAL, LATEX, and PENICILLIN, PROPOXYPHENE, and SULFA. FAMILY HISTORY: She is adopted. She is unclear. SOCIAL HISTORY: Previous smoker approximately 5 to 10 pack year history, quit in the 90s. No current or prior history of alcohol or drug abuse. Her surrogate decision maker is her mother, Lisa Darling. REVIEW OF SYSTEMS: A 14-point organ systems is noted above, otherwise negative. PHYSICAL EXAMINATION: Her vital signs, heart rate in the 80s, respiratory rate 9 to 17, O2 sats 97 to 100%, blood pressure 107/86 to 110/70. In general, she is a well-nourished, well-developed female, in no acute distress. She is pleasant, well dressed, well groomed. HEENT: She is normocephalic, atraumatic. Sclerae are anicteric. Mucous membranes are moist. Oropharynx is clear. Nares are patent. Neck is supple. No thyromegaly, no carotid bruits, or meningismus. Chest: Clear to auscultation bilaterally. Cardiovascular: Regular rate and rhythm. Abdomen is nontender and nondistended. Obese. Extremities: No clubbing, cyanosis, or edema. Her skin is warm and dry. Her neurologic exam, she is awake, alert, oriented x3. Her speech is fluent. There is no dysarthria, repetition is intact. Recall is somewhat impaired. Mood is dysthymic, affect mood congruent. Cranial Nerves: Pupils were equal, round, and reactive to light and accommodation. I saw no nystagmus with left or right gaze. Her extraocular muscles appear to be full. Visual terry are full to confrontation. Her facial sensation is intact bilaterally. She has a subtle left lower facial droop. Hearing is intact bilaterally. Palate raises symmetrically. Tongue is midline. Motor Exam: She is spontaneously moving all extremities antigravity. She does have some mild drift in the left upper extremity with some 4+/5 weakness proximally and distally. She was able to hold her left leg up against gravity for greater than 10 seconds with no weakness. Sensation: She notes some tingling on the dorsal lateral surface of her left arm, but otherwise her sensation is intact to light and pinprick. Her finger- to-nose and rapid alternating movements were intact. She had a little bit of difficulty on the left. DTRs were symmetric upper and lower extremities with equivocal bilateral Babinski's. Gait cannot be tested at this time. DIAGNOSTIC STUDIES/LAB DATA: In the ER, she did have a head CT done that showed no acute intracranial abnormalities. As noted above, she had had a previous EEG, MRI, CT angiogram of the head and neck. Lab work includes a CBC with diff, it was essentially normal. A complete metabolic profile with a BUN of 26, creatinine of 0.84, alk phos of 141, total protein of 6.0. ASSESSMENT AND PLAN: Ms. Couch is a 53-year-old female with a history of a possible seizure back in her teenage years, was initially treated with phenobarbital, but did not respond, states that she has been off medicines for years and her last seizure was years ago. She does state that she had possible seizure about 5 years ago, but did not seek treatment. At least some of her seizures have been generalized tonic-clonic in nature. She was recently admitted in January with seizure-like activity and at that time had a normal MRI and a normal EEG, but based on her semiology, was started on Keppra, sent home on 500 mg p.o. b.i.d. and has been tolerating that medication without difficulty. Yesterday at around 3 p.m., she was watching YouTube and then standing at the kitchen counter when she started to have what she describes is "phasing out." No reported generalized tonic-clonic activity, but she had another seizure in the ER and again in the ambulance and given Versed, a total of 4 seizures. In the ER, she was somnolent, but she was arousable and subsequently returned to her baseline. She had had her morning dose of Keppra and 1000 mg was given last night and I instructed the ER doctor to admit her to the ICU for close monitoring overnight given the fact that she had had 4 reported seizures and to increase her Keppra to 750 mg p.o. b.i.d. overnight in the ER. She has done well. No further seizure activity. She is pleasant this morning, awake, understands what happened. She did state that she has been compliant. We reinforced compliance with her medication. At this point, she has not had a followup with Neurology. The planning will be to watch her for sometime this today. If she does well this morning and this afternoon and has no further seizure activity, I think it is safe to discharge her home. She has previously been told not to drive. She should be sent home on Keppra 750 mg p.o. b.i.d. with instructions to return to the ER immediately with any further activity. I told her that if she has another seizure, we will likely increase the Keppra further to 1000 mg p.o. b.i.d. She will need followup with Neurology , which can be arranged. I will be happy to see her in my outpatient clinic. As far as her stroke is concerned, she needs to continue with secondary stroke risk factor reduction including an 81 mg aspirin a day, Lipitor, tight blood pressure control, tight diabetes control. She is now a nonsmoker. She does have a history of depression, is on sertraline 100 mg p.o. b.i.d., selective serotonin reuptake inhibitors can decrease the seizure threshold, but I think now that she is treated with seizure medication and given her history of depression that she should continue sertraline, she should definitely avoid Wellbutrin in the future as it is well known to lower seizure threshold. I defer management of her other medical issues to the primary care team. Assuming she does well, she can go home today and you can arrange her followup with Haseeb Hidalgo NP in four to eight weeks. [id number]/[facility] #: [id number] ONDINA
[2019-02-24 12:41] LABS: Urine Appearance Cloudy; Urine Bacteria 3+ (Absent); Urine Bilirubin Negative (Negative); Urine Blood Negative (Negative); Urine Color Yellow; Urine Glucose Negative (Negative); Urine Ketones Negative (Negative); Urine Nitrite Positive (Negative); Urine Protein Negative (Negative); Urine Red Blood Cell Trace(0-2/hpf) (Absent); Urine Specific Gravity 1.014 (1.010-1.030); Urine Squamous Epithelial Cell Present (Absent); Urine Urobilinogen Negative (Negative); Urine White Blood Cell 1+(6-10/hpf) (Absent)
[2019-02-24 13:43] VITALS: BP 112/80
--- NOTE | 2019-02-25 16:46 | DS ---
CC: Ayleen Bobby MD * DISCHARGE SUMMARY: DATE OF ADMISSION: 02/24/19 DATE OF DISCHARGE: 02/24/19 PRIMARY CARE PHYSICIAN: Ayleen Bobby MD PRIMARY DIAGNOSIS: Seizure disorder. SECONDARY DIAGNOSES: 1. Cerebrovascular accident. 2. Type 2 diabetes. 3. Hypertension. 4. Fibromyalgia. 5. Depression. 6. Hypothyroidism. CONSULTS: Dr. Green of Neurology. DISCHARGE MEDICATIONS: 1. Levetiracetam 750 mg twice a day. 2. Atorvastatin 80 mg daily. 3. Lisinopril 5 mg daily. 4. Sertraline 100 mg twice a day. 5. Aspirin 81 mg daily. 6. Omeprazole 40 mg twice a day. 7. Magnesium 500 mg daily. HISTORY OF PRESENT ILLNESS: Ms. Couch is a 53-year-old woman with epilepsy, CVA, esophageal cancer, type 2 diabetes, hypertension, fibromyalgia, depression , hypothyroidism, probable PICC line related DVT who presented to the emergency room after 4 seizures in 1 day. The patient was admitted to [facility] last month after experiencing a seizure. At that time, she had gone to attend an eye exam and began to experience left arm weakness and slurred speech. The patient was admitted for further workup, seen in consultation by Neurology, and his impression was of a focal onset epilepsy. The patient had multiple episodes and her MRI of the brain did not show evidence of old stroke, so Neuro consult thought that her possible history of stroke was actually a postictal event rather than CVA and recommended the patient will be initiated on Keppra. The patient reports since that discharge, she was in her usual state of health on 500 mg twice a day of Keppra until morning of presentation. She was watching a video on [employer] when she experienced a seizure. She states she had 3 seizures at home and another one in the ambulance. The patient received 5 mg of Versed by EMS. When she arrived to the ER, she was arousable, although sedated. HOSPITAL COURSE: The patient was admitted to the ICU after Keppra loaded in the emergency room 1000 mg IV. Her home Keppra dose was increased from 500 mg twice a day to 750 mg twice a day. She was seen and evaluated by Dr. Cleveland Green of Neurology, who thought she was stable for discharge on this increased dose of Keppra. She experienced no further seizures throughout hospitalization. On the day of discharge, a complete 10-point review of systems was performed and significant only for mild tiredness which has been improving throughout the day. The patient felt ready to return home. PHYSICAL EXAMINATION: Afebrile, heart rate 79, blood pressure 112/80, respiratory rate 19, oxygen saturation 100% on room air. In general, she is a well-appearing although somewhat tired woman, in no acute distress. She is alert and interactive and answering questions appropriately. Neck: No JVD, supple. HEENT: Moist mucous membranes. OP clear. Sclerae anicteric. Heart: Regular rate and rhythm. No murmurs, gallops, or rubs. Chest: Clear to auscultation bilaterally. Abdomen: Soft, nontender, nondistended. Extremities : Warm and well perfused without evidence of edema. Skin: Warm and dry. Neuro Exam: A and O x3. Speech is fluent without dysarthria. CN II through XII intact. Strength 5/5 grossly in 4 extremities. Sensation intact bilaterally. DIAGNOSTIC STUDIES/LAB DATA: CBC and LFTs unremarkable. BUN slightly increased to 26. UA with positive nitrites, 1+ wbc with bacteria and squamous epithelial cells present. Urine culture pending. Brain CT without acute intracranial pathology. DISCHARGE PLAN: The patient is to follow up with her PCP and also [facility] Neurology office for ongoing management of her chronic medical issues. She is to continue her home medications as above with only one notable change, her Keppra has been increased to 750 mg twice a day. She was educated on return precaution, which include but are not limited to recurrence of seizure. She is to eat healthy diet, low on processed foods and resume activity as tolerated. DISPOSITION: To home. CONDITION: Good. TIME SPENT: Approximately 60 minutes was spent on discharge of this patient, more than half of which was spent with care and coordination at bedside for interview and exam. [id number]/[facility] #: [id number] ONDINA
== END 2019-02-24 15:00 | disposition home or self-care (01) ==
LOC: ED 20:27 → INTOOBSV 02-24 00:42 → ICU 02-24 00:42
PROVIDERS: ADMIT Internal Medicine; ATTEND Internal Medicine
DX: G40.909 Epilepsy, unspecified, not intractable, without status epilepticus (principal); Z86.73 Personal history of transient ischemic attack (TIA), and cerebral infarction without residual deficits; E11.9 Type 2 diabetes mellitus without complications; I10 Essential (primary) hypertension; M79.7 Fibromyalgia; F32.9 Major depressive disorder, single episode, unspecified; E03.9 Hypothyroidism, unspecified; Z79.01 Long term (current) use of anticoagulants; Z86.718 Personal history of other venous thrombosis and embolism; K21.9 Gastro-esophageal reflux disease without esophagitis; Z87.891 Personal history of nicotine dependence; Z88.0 Allergy status to penicillin; Z88.2 Allergy status to sulfonamides; E78.5 Hyperlipidemia, unspecified; Z85.01 Personal history of malignant neoplasm of esophagus; Z79.82 Long term (current) use of aspirin; Z79.899 Other long term (current) drug therapy
CPT/HCPCS: 36415; 70450; 80053; 81003; 81015; 85025; 86140; 87077; 87086; 87186; 87641; 93005; 96365; 96372; 99285; A9270-GY; G0378; J1644

== ENCOUNTER 2019-05-06 22:14 | Inpatient (IN) | payer MEDICARE, MEDICAID ==
--- OUTSIDE RECORDS SUMMARY | 2019-05-06 22:43 | XMS REPORT | Continuity of Care Document ---
:1965 External Reference #:[id number] Author Name Galindo Crowe NP (transmitted by agent of provider Lyudmila Palmer) Address [address], [place] [address] Care Team Providers Name Role Phone Jose Horne DO - Family Care Team Information Direct Marketing Analyst [phone] Medicine Ayleen Bobby MD - Internal Medicine Care Team Information Direct Marketing Analyst [phone] Problems Active Problems Provider Date Essential hypertension Junior Colin M.D., [facility], Onset: 10/12/2017 FASNC Difficulty breathing Junior Colin M.D., [facility], Onset: 10/12/2017 FASNC Other complications of esophagostomy Daniel Williamson II, M.D. Onset: 2017 Malignant tumor of esophagus Daniel Williamson II, M.D. Onset: 12/28/2017 Type 2 diabetes mellitus Daniel Williamson II, M.D. Onset: 12/28/2017 Mixed hyperlipidemia Ayleen Bobby MD Onset: 02/18/2019 Gastroesophageal reflux disease Ayleen Bobby MD Onset: 02/18/2019 Isolated seizures Ayleen Bobby MD Onset: 02/18/2019 Obstructive sleep apnea syndrome Flores Walker DNP, RN, Onset: 03/20/2019 [facility]- Note: Mild. NPSG 08/22/18: AHI 7.2/hour, tRDI 25/hour, crissy oxygen 91%, no REM sleep, poor sleep efficiency at 67.1%. wt 225, BMI 38.6 Social History Type Date Description Comments Sex Unknown ETOH Use Denies alcohol use Tobacco Use Start: Unknown End: Patient is a former smoker Quit 1992 Unknown Recreational Drug Use Denies Drug Use Smoking Status Reviewed: 04/22/19 Patient is a former smoker Quit 1992 Exercise Type/Frequency Does not exercise Allergies, Adverse Reactions, Alerts Active Allergies Reaction Severity Comments Date Darvocet 10/12/2017 Benadryl 10/12/2017 Penicillin 10/12/2017 Phenobarbital 10/12/2017 Oxaliplatin 10/12/2017 Plexion 10/12/2017 Latex 10/12/2017 Bee Sting 10/12/2017 Peppers 10/12/2017 Medications Active Medications SIG Qnty Indications Ordering Date Provider Lamotrigine take 1/2 tab in 60tabs Júnior Fischer 04/22/2019 100mg Tablets the morning and Shital Dunaway 1 and 1/2 tabs at night. Levetiracetam Take 1 Tablet By 28tabs Júnior Fischer 04/22/2019 250mg Mouth Twice Shital Dunaway Tablets Daily For 2 Weeks Then Stop Atorvastatin Calcium 1 by mouth every 30tabs E78.2 Ayleen Bobby MD 2018 80mg day Tablets Lisinopril 1 by mouth every 90tabs Ayleen Bobby MD 12/31/2018 5mg Tablets day Sertraline HCL Take 2 Tablets 180tabs Ayleen Bobby MD 100mg By Mouth Every Tablets Day Magnesium 2 by mouth every Unknown 400mg Tablets day Omeprazole 1 by mouth once 90caps Ayleen Bobby MD 40mg Capsules a day DR Bianchi 2-Yonas use as directed 2units Ayleen Bobby MD 0.3mg/0.3ML Solution Auto-Inject Ibuprofen 4 by mouth as Unknown 200mg Tablets needed Aspirin 81 1 by mouth every Unknown 81mg Tablets day DR Talbert HFStacia 2 puffs every 4 Unknown 108(90Base) hours as needed mcg/Act Aerosol History Medications Levetiracetam take 2 tabs po bid 28tabs G40.909 Júnior Fischer 04/22/2019 - 250mg for 2 weeks then Shital Dunaway 04/22/2019 Tablets d/c. Lamotrigine take 1/2 tab po in 60tabs G40.909 Júnior Fischer 04/22/2019 - 100mg the morning and 1 Shital Dunaway 04/22/2019 Tablets and 1/2 tabs at night. Lamotrigine take 1 tablet 90tabs Júnior Fischer 03/19/2019 - 25mg twice daily for 2 Shital Dunaway 04/22/2019 Tablets weeks, then take 2 tablets by mouth twice daily Levetiracetam Take 1 Tablet By 30tabs Júnior Fischer 03/19/2019 - 500mg Mouth Twice Daily. Shital Dunaway 04/22/2019 Tablets Start On The Third Week After Taking Lamotrigine 50 MG 2 Times Daily Medications Administered in Office Medication SIG Qnty Indications Ordering Provider Date Inj, Regadenoson, 0.1 MG Junior Colin M.D., 10/22/2017 Injection FACHenry, FASNC Technetium TC 99M Junior Colin M.D., 10/22/2017 Tetrofosmin, Per Unit Dose FACC, FASNC Up To 40 Millicuries Injection Technetium TC 99M [facility] Schedule 10/19/2017 Tetrofosmin, Per Unit Dose Up To 40 Millicuries Injection Immunizations Description No Information Available Vital Signs Date Vital Result Comment 04/22/2019 2:23pm Height 64 inches 5'4" Weight 211.00 lb Heart Rate 78 /min BP Systolic 136 mmHg BP Diastolic 82 mmHg BMI (Body Mass Index) 36.2 kg/m2 03/24/2019 11:16am Height 64 inches 5'4" Weight 211.25 lb Heart Rate 104 /min BP Systolic Sitting 98 mmHg Lue large cuff BP Diastolic Sitting 68 mmHg Lue large cuff Respiratory Rate 16 /min O2 % BldC Oximetry 96 % On Ra BMI (Body Mass Index) 36.3 kg/m2 Results Test Acquired Date Facility Test Result H/L Range Note Comp Metabolic 02/23/2019 [facility] Sodium 142 mmol/L Normal 135-[address] [place] [address] [phone] Potassium 3.8 mmol/L Normal 3.5-5.0 Chloride 111 mmol/L Normal 101-111 Co2 Carbon Dioxide 26 mmol/L Normal 22-32 Anion Gap 5 mmol/L Normal 2-11 Glucose 93 mg/dL Normal 70-100 Blood Urea Nitrogen 26 mg/dL High 6-24 Creatinine 0.84 mg/dL Normal 0.51-0.95 BUN/Creatinine Ratio 31.0 High 8-20 Calcium 8.6 mg/dL Normal 8.6-10.3 Total Protein 6.0 g/dL Low 6.4-8.9 Albumin 3.7 g/dL Normal 3.2-5.2 Globulin 2.3 g/dL Normal 2-4 Albumin/Globulin Ratio 1.6 Normal 1-3 Total Bilirubin 0.30 mg/dL Normal 0.2-1.0 Alkaline Phosphatase 141 U/L High 34-104 Alt 24 U/L Normal 7-52 Ast 18 U/L Normal 13-39 Egfr Non- 71.2 >60 Egfr 86.2 >60 1 Laboratory test 02/23/2019 [facility] C Reactive 2.95 mg/L Normal <8.[address] [place] [address] [phone] CBC Auto Diff 02/23/2019 [facility] White Blood 6.2 Normal 3.5 -10.[address] Count 10^3/[place] [address] [phone] Red Blood Count 4.21 10^6/uL Normal 3.70-4.87 Hemoglobin 12.6 g/dL Normal 12.0-16.0 Hematocrit 36 % Normal 35-47 Mean Corpuscular Volume 85 fL Normal 80-97 Mean Corpuscular Hemoglobin 30 pg Normal 27-31 Mean Corpuscular HGB Conc 35 g/dL Normal 31-36 Red Cell Distribution Width 14 % Normal 10-15 Platelet Count 200 10^3/uL Normal 150-450 Mean Platelet Volume 7.1 fL Low 7.4-10.4 Abs Neutrophils 4.7 10^3/uL Normal 1.5-7.7 Abs Lymphocytes 1.0 10^3/uL Normal 1.0-4.8 Abs Monocytes 0.4 10^3/uL Normal 0-0.8 Abs Eosinophils 0.1 10^3/uL Normal 0-0.6 Abs Basophils 0.1 10^3/uL Normal 0-0.2 Abs Nucleated RBC 0.0 10^3/uL Granulocyte % 75.3 % Lymphocyte % 16.3 % Monocyte % 5.9 % Eosinophil % 1.7 % Basophil % 0.8 % Nucleated Red Blood Cells % 0.1 Ua Routine 02/18/2019 [facility] Ua Specific [place] 1020 Ua PH 5 Ua Color yellow Ua Appera clear Ua WBC negative Ua Protein negative Ua Glucose normal Ua Ketones negative Ua Bilirubin negative Ua Urobilinogen normal Ua Nitrite negative Ua Occult Blood negative Laboratory test 02/11/2019 [facility] Point of 71 mg/dL Normal 70-100 [address] [place] [address] Glucose [phone] Urine Culture And 02/11/2019 [facility] Urine SEE RESULT [address] [place] [address] [phone] Laboratory test 02/11/2019 [facility] Lactic Acid 0.8 mmol/L Normal 0.5-2.0 [address] [place] [address] [phone] TSH (Thyroid Stim Horm) 4.81 mcIU/mL Normal 0.34-5.60 Hemoglobin A1c (Glyco HGB) 5.4 % Normal 4.0-5.6 5 Lipid Profile 02/11/2019 [facility] Triglycerides 130 mg/dL 6 (Trig/Chol/HDL) [address] [place] [address] [phone] Cholesterol 158 mg/dL 7 HDL Cholesterol 37.4 mg/dL 8 LDL Cholesterol 95 mg/dL 9 Comp Metabolic 02/11/2019 [facility] Sodium 144 mmol/L Normal 135-[address] [place], [place] [id number] [phone] Potassium 4.0 mmol/L Normal 3.5-5.0 Chloride 110 [...] Egfr Non- 68.4 >60 Egfr 82.7 >60 10 Laboratory test 02/11/2019 [facility] Troponin-I (TnI) 0.00 ng/ mL <0.04 [address] [place] [address] [phone] Urinalysis 02/11/2019 [facility] Urine Color Yellow Profile [address] [place] [address] [phone] Urine Appearance Cloudy Urine Specific [place] 1.031 High 1.010-1.030 Urine pH 6.0 Normal [...] Absent Urine Transitional Epithelial Present Abnormal Absent CBC Auto 02/11/2019 [facility] White Blood 7.1 10^3/uL Normal 3.5-10.[address] [place] [address] [phone] Red Blood Count 4.69 10^6/uL Normal 3.70-4.87 [...] % Nucleated Red Blood Cells % 0.0 Laboratory 02/11/2019 [facility] Partial 35.5 Normal 26.0- 38.[address] [place] [address] Time PTT [phone] Inr/Protime 02/11/2019 [facility] Inr 0.91 Normal 0.82-1.[address] [place] [address] [phone] CBC Auto Diff 02/06/2019 [facility] White Blood 5.4 10^3/uL Normal 3.5-10.[address] [place] [address] [phone] Red Blood Count 4.44 10^6/uL Normal 3.70-4.87 [...] % 0.0 Iron & Iron Binding 02/06/2019 [facility] Iron 60 g/dL Normal 50-[address] [place] [address] [phone] Unsaturated Iron Binding < 311 g/dL Total Iron Binding Capacity 326 g/dL Normal 250-450 Transferrin 233 mg/dL Normal 203-362 % Iron Saturation 18 % Normal 15-55 Comp Metabolic 02/06/2019 [facility] Sodium 143 mmol/L Normal 135-145 Panel [address] [place] [address] [phone] Potassium 3.8 mmol/L Normal 3.5-5.0 Chloride 109 [...] Egfr Non- 63.3 >60 Egfr 76.6 >60 14 Laboratory test 02/06/2019 [facility] Ferritin 68.2 Normal 11- 307 [address] ng/[place] [address] [phone] Lipid Profile 01/31/2019 [facility] Triglycerides 154 mg/dL 16 (Trig/Chol/HDL) [address] [place] [address] [phone] Cholesterol 186 mg/dL 17 HDL Cholesterol 43.7 mg/dL 18 LDL Cholesterol 112 mg/dL 19 1 Because ethnic data is not always readily [...] 15-29 5 Kidney failure <15 (or dialysis) 2 Health Outreach Worker: [id number] SEE RESULT BELOW Name: MILVIA RAHMAN : [address]: Teerse Berry MD Acct: [id number] Unit: [id number] AGE: 53 Location: [place] [address] Re02/11/19 Dis: 02/12/19 SEX: F Status: DIS IN SPEC: [id number] MAGALY: 02/11/[address] [facility] [address]: Bin Pastor MD REQ: [id number] RECD: 02/11/19 STATUS: ALAN COOPER DR: Ayleen Bobby MD _ SOURCE: URINE SPDESC: ORDERED: Urine Culture Procedure Result Reported Site Urine Culture Final 02/13/19- 0856 ML Organism 1 ESCHERICHIA COLI [place] Count >100,000 (Many) CFU/ML 1. ESCHERICHIA COLI [...] . END OF REPORT DEPARTMENT OF PATHOLOGY, [address] [place] [address] Hany Damon M.D. Director [facility] # [id number] 4 [facility] Severe Sepsis and Septic Shock Management Bundle Measure requires all lactic acids initially measuring >2.0 mmol/L be repeated. 5 Therapeutic target for the treatment of diabetes mellitus patients is <7% HBA1C, and in selective patients <6.0%. Please refer to [place] [employer] diabetic care guidelines for further information. 6 Desirable: <150 Borderline High: 150-199 High: 200-499 Very High: >500 7 Desirable: <200 Borderline High: 200-239 High: >239 8 Low: <40 Desirable: 40-60 High: >60 9 Desirable: <100 Near Optimal: 100-129 Borderline High: 130-159 High: 160-189 Very High: >189 10 Because ethnic data is not always readily [...] 15-29 5 Kidney failure <15 (or dialysis) 11 Troponin-I testing on Plasma Separator Tubes (PST) has a known false positive rate of 0.20-0.40%. All positive troponins reflex immediately to secondary confirmatory testing. Using the [employer] DxI 800 Access Immunoassay systems, the 99th percentile upper reference limit was demonstrated to be < 0.03 ng/mL. 12 Standard intensity warfarin therapeutic range: 2.0-3.0 High intensity warfarin therapeutic range: 2.5-3.5 13 [id number] 14 Because ethnic data is not always readily [...] 15-29 5 Kidney failure <15 (or dialysis) 15 [id number] 16 Desirable: <150 Borderline High: 150-199 High: 200-499 Very High: >500 17 Desirable: <200 Borderline High: 200-239 High: >239 18 Low: <40 Desirable: 40-60 High: >60 19 Desirable: <100 Near Optimal: 100-129 Borderline High: 130-159 High: 160-189 Very High: >189 Procedures Date Code Description Status 02/12/2019 34678 EEG Recording Awake & Asleep Completed 02/11/2019 [id number] Diabetic Retinal Eye Exam Completed 09/13/2017 [id number] Colonoscopy Completed Medical Devices Description No Information Available Encounters Type Date Location Provider Dx Diagnosis Office Visit 03/24/2019 [facility] Flores Walker, G47.33 Obstructive sleep 11:15a [facility] RN, FISHING GEAR MECHANIC- apnea (adult) [facility] (pediatric) Office Visit 03/19/2019 [facility] Galindo Crowe NP G40.909 Epilepsy , unsp, 1:00p [facility] not intractable, without status epilepticus Office Visit 02/24/2019 [facility] Candi Mahoney, G40.909 Epilepsy, unsp, 9:29a nia Francisco M.D. not intractable, Hospitalists without status epilepticus Office Visit 02/18/2019 [facility] Internal Ayleen Bobby MD G40.89 Other seizures 8:00a Medicine - [facility] N39.0 Urinary tract infection, site not specified I10 Essential (primary) hypertension E78.2 Mixed hyperlipidemia K21.9 Gastro-esophageal reflux disease without esophagitis Office 02/12/2019 [facility] Júnior 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 Visit 7:00a Filemon Dunaway (postepileptic) Shital G40.909 Epilepsy, unsp, not intractable, without status epilepticus Office Visit 02/12/2019 9:38a [facility] Lacey Arguelles, R56.9 Unspecified Assoc,nia TEST EXAMINER convulsions Hospitalists B96.20 Unsp Escherichia coli as the cause of diseases classd elswhr N39.0 Urinary tract infection, site not specified Office 02/11/2019 [facility] Júnior Benavidez84 Marcos's paralysis Visit 7:00a [facility], (postepileptic) Shital G40.909 Epilepsy, unsp, not intractable, without status epilepticus Office Visit 02/11/2019 9:37a [facility] Lacey Blane, R56.9 Unspecified Assoc,pc TEST EXAMINER convulsions Hospitalists R53.1 Weakness N39.0 Urinary tract infection, site not specified I10 Essential (primary) hypertension Z86.73 Prsnl hx of TIA (TIA), and cereb infrc w/o resid deficits F32.9 Major depressive disorder, single episode, unspecified Assessments Date Code Description Provider 04/22/2019 G47.33 Obstructive sleep apnea (adult) Galindo Crowe NP (pediatric) 04/22/2019 G40.909 Epilepsy, unspecified, not Galindo Crowe NP intractable, without status epilepticus 03/24/2019 G47.33 Obstructive sleep apnea (adult) Flores Walker DNP, RN, (pediatric) [facility]- 03/19/2019 G40.909 Epilepsy, unspecified, not Galindo Crowe NP intractable, without status epilepticus 02/25/2019 G40.909 Epilepsy, unspecified, not [place] M.D. intractable, without status epilepticus 02/24/2019 G40.909 Epilepsy, unspecified, not Candi Mahoney M.D. 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 02/12/2019 R56.9 Unspecified convulsions Laceymyesha Arguelles, TEST EXAMINER 02/12/2019 B96.20 Unspecified Escherichia coli [E. Lacey Blane, TEST EXAMINER coli] as the cause of diseases classified elsewhere 02/12/2019 N39.0 Urinary tract infection, site not Lacey Blane, TEST EXAMINER specified 02/12/2019 G40.909 Epilepsy, unspecified, not Júnior Dunaway M.D. 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 02/11/2019 R56.9 Unspecified convulsions Lacey Blane, TEST EXAMINER 02/11/2019 G40.909 Epilepsy, unspecified, not Júnior Dunaway M.D. intractable, without status epilepticus 02/11/2019 R53.1 Weakness Lacey Blane, TEST EXAMINER 02/11/2019 N39.0 Urinary tract infection, site not Lacey Blane, TEST EXAMINER specified 02/11/2019 I10 Essential (primary) hypertension Lacey Blane, TEST EXAMINER 02/11/2019 Z86.73 Personal history of transient Lacey Blane, TEST EXAMINER ischemic attack (TIA), and cerebral infarction without residual deficits 02/11/2019 F32.9 Major depressive disorder, single Lacey Blane, TEST EXAMINER episode, unspecified Plan of Treatment Future Appointment(s):05/27/2019 1:30 pm - Galindo Crowe NP at [facility]09/23/2019 1:30 pm - Flores Walker DNP, RN, FISHING GEAR MECHANIC- at [facility]08/19/2019 1:20 pm - Ayleen Bobby MD at [facility] - Galindo Crowe NPG47.33 Obstructive sleep apnea (adult) (pediatric)G40.909 Epilepsy, unspecified, not intractable, without status epilepticusNew Medication:Levetiracetam 250 mg - take 2 tabs po bid for 2 weeks then d/c.Lamotrigine 100 mg - take 1/2 tab po in the morning and 1 and 1/2 tabs at night.Follow up:ONE MONTHRecommendations: Starting tomorrow, start Lamotrigine 100 mg tabs, 1/2 tablet in the morning and one and 1/2 tabs at night. Starting tomorrow, take Levetiracetam (Keppra) at 250 mg, one tab in the morning and 1 tab atnight for 2 weeks, then discontinue. In two weeks, return to out labs and have trough level of Lamotrigine drawn. Hold the morning dose of Lamotrigine prior to the bloodwork and then take it after youhave completed blood work. Record any seizure activity to our office. Functional Status Description No Information Available Mental Status Description No Information Available Referrals Description No Information Available
--- OUTSIDE RECORDS SUMMARY | 2019-05-06 22:43 | XMS REPORT | Continuity of Care Document ---
:1965 External Reference #:[id number] Author Name Galindo Crowe NP (transmitted by agent of provider Lyudmila Palmer) Address [address] [facility] [facility], [place] [address] Care Team Providers Name Role Phone Jose Horne DO - Family Care Team Information Patient Scheduling Coordinator Medicine Ayleen Bobby MD - Internal Medicine Care Team Information Patient Scheduling Coordinator Problems Active Problems Provider Date Essential hypertension Junior Colin M.D., [facility], Onset: 10/12/2017 FASNC Difficulty breathing Junior Colin M.D., [facility], Onset: 10/12/2017 FASNC Other complications of esophagostomy Daniel Williamson II, M.D. Onset: 2017 Malignant tumor of esophagus Daniel Williamson II, M.D. Onset: 12/28/2017 Type 2 diabetes mellitus Daniel Williamson II, M.D. Onset: 12/28/2017 Mixed hyperlipidemia Ayleen Bobby MD Onset: 02/18/2019 Gastroesophageal reflux disease Ayleen Bobby MD Onset: 02/18/2019 Isolated seizures Ayleen Bobby MD Onset: 02/18/2019 Social History Type Date Description Comments Sex Unknown ETOH Use Denies alcohol use Tobacco Use Start: Unknown End: Patient is a former smoker Quit 1992 Unknown Recreational Drug Use Denies Drug Use Smoking Status Reviewed: 03/19/19 Patient is a former smoker Quit 1992 Exercise Type/Frequency Does not exercise Allergies, Adverse Reactions, Alerts Active Allergies Reaction Severity Comments Date Darvocet 10/12/2017 Benadryl 10/12/2017 Penicillin 10/12/2017 Phenobarbital 10/12/2017 Oxaliplatin 10/12/2017 Plexion 10/12/2017 Latex 10/12/2017 Bee Sting 10/12/2017 Peppers 10/12/2017 Medications Active Medications SIG Qnty Indications Ordering Date Provider Lamotrigine Take 1 Tablet 90tabs Júnior Fischer 03/19/2019 25mg Twice Daily For 2 Shital Dunaway Tablets Weeks, Then Take 2 Tablets By Mouth Twice Daily Levetiracetam Take 1 Tablet By 30tabs Júnior SMarshall 03/19/2019 500mg Mouth Twice Daily. Shital Dunaway Tablets Start On The Third Week After Taking Lamotrigine 50 MG 2 Times Daily Atorvastatin Calcium 1 by mouth every E78.2 Ayleen Bobby MD 02/18/2019 day 80mg Tablets Lisinopril 1 by mouth every 90tabs Ayleen Bobby MD 12/31/2018 5mg Tablets day Sertraline HCL 2 by mouth every 180tabs Ayleen Bobby MD 100mg day Tablets Magnesium 2 by mouth every Unknown 400mg Tablets day Omeprazole 1 by mouth once a 90caps Ayleen Bobby MD 40mg day Capsules DR Bianchi 2-Yonas use as directed 2units Ayleen Bobby MD 0.3mg/0.3ML Solution Auto-Inject Ibuprofen 4 by mouth as Unknown 200mg Tablets needed Aspirin 81 1 by mouth every Unknown 81mg Tablets day DR Talbert HFA 2 puffs every 4 Unknown hours as needed 108(90Base) mcg/Act Aerosol History Medications Atorvastatin Calcium take 1 tablet [...] Available Vital Signs Date Vital Result Comment 03/19/2019 1:03pm Height 64 inches 5'4" Weight 213.00 lb Heart Rate 78 /min BP Systolic 128 mmHg BP Diastolic 86 mmHg BMI (Body Mass Index) 36.6 kg/m2 02/18/2019 8:14am Height 64 inches 5'4" Weight 214.38 lb Heart Rate 84 /min BP Systolic 124 mmHg BP Diastolic 84 mmHg Body Temperature 97.2 F O2 % BldC Oximetry 99 % BMI (Body Mass Index) 36.8 kg/m2 Results Test Date Facility Test Result H/L Range Note Comp Metabolic 02/23/2019 [facility] Sodium 142 mmol/L Normal 135-[address] [place] [address] [phone] Potassium 3.8 mmol/L Normal 3.5-5.0 Chloride 111 [...] Egfr 86.2 >60 1 Laboratory test 02/23/2019 [facility] C Reactive 2.95 mg/L Normal <8.[address] [place] [address] [phone] CBC Auto Diff 02/23/2019 [facility] White Blood 6.2 Normal 3.5 -10.[address] Count 10^3/[place] [address] [phone] Red Blood Count 4.21 10^6/uL Normal 3.70-4.87 [...] Blood Cells % 0.1 Ua Routine 02/18/2019 [facility] Ua Specific [address] 1020 Ua PH 5 Ua Color yellow Ua Appera clear Ua WBC negative Ua Protein negative Ua Glucose normal Ua Ketones negative Ua Bilirubin negative Ua Urobilinogen normal Ua Nitrite negative Ua Occult Blood negative Inr/Protime 02/11/2019 [facility] Inr 0.91 Normal 0.82-1.[address] [place] [address] [phone] Laboratory test 02/11/2019 [facility] Partial 35.5 Normal 26.0 -38.[address] [place] [address] Time PTT [phone] CBC Auto Diff 02/11/2019 [facility] White Blood 7.1 10^3/uL Normal 3.5-10.[address] [place] [address] [phone] Red Blood Count 4.69 10^6/uL Normal 3.70-4.87 [...] Blood Cells % 0.0 Urinalysis Profile 02/11/2019 [facility] Urine Color Yellow [address] [place] [address] [phone] Urine Appearance Cloudy Urine Specific [address] 1.031 High 1.010-1.030 Urine pH 6.0 Normal [...] Epithelial Present Abnormal Absent Laboratory test 02/11/2019 [facility] Troponin-I 0.00 <0.[address] (TnI) ng/[place] [address] [phone] Comp Metabolic 02/11/2019 [facility] Sodium 144 Normal 135- [address] mmol/[place] [address] [phone] Potassium 4.0 mmol/L Normal 3.5-5.0 Chloride 110 [...] Egfr Non- 68.4 >60 Egfr 82.7 >60 4 Lipid Profile 02/11/2019 [facility] Triglycerides 130 mg/dL 5 (Trig/Chol/HDL) [address] [place] [address] [phone] Cholesterol 158 mg/dL 6 HDL Cholesterol 37.4 mg/dL 7 LDL Cholesterol 95 mg/dL 8 Laboratory test 02/11/2019 [facility] Lactic Acid 0.8 mmol/L Normal 0.5-2.[address] [place] [address] [phone] TSH (Thyroid Stim Horm) 4.81 mcIU/mL Normal 0.34-5.60 Hemoglobin A1c (Glyco HGB) 5.4 % Normal 4.0-5.6 10 Urine Culture And 02/11/2019 [facility] Urine SEE RESULT [address] [place] [address] [phone] Laboratory test 02/11/2019 [facility] Point of 71 mg/dL Normal 70-1 [address] Care Glucose 00 [place] [address] [phone] Laboratory test 02/06/2019 [facility] Ferritin 68.2 ng/mL Normal 11-3 13, [address] [place] [address] [phone] Comp Metabolic 02/06/2019 [facility] Sodium 143 mmol/L Normal 135- Panel [address] [place] [address] [phone] Potassium 3.8 mmol/L Normal 3.5-5.0 Chloride 109 [...] Egfr Non- 63.3 >60 Egfr 76.6 >60 15 Iron & Iron Binding 02/06/2019 [facility] Iron 60 g/dL Normal 50-[address] [place] [address] [phone] Unsaturated Iron Binding < 311 g/dL Total Iron Binding Capacity 326 g/dL Normal 250-450 Transferrin 233 mg/dL Normal 203-362 % Iron Saturation 18 % Normal 15-55 CBC Auto 02/06/2019 [facility] White Blood 5.4 10^3/uL Normal 3.5-10.[address] [place] [address] [phone] Red Blood Count 4.44 10^6/uL Normal 3.70-4.87 [...] % Nucleated Red Blood Cells % 0.0 Lipid Profile 01/31/2019 [facility] Triglycerides 154 mg/dL 16 (Trig/Chol/HDL) [address] [place] [address] [phone] Cholesterol 186 mg/dL 17 HDL Cholesterol 43.7 mg/dL 18 LDL Cholesterol 112 mg/dL 19 Laboratory test 10/12/2018 [facility] Potassium 3.9 mmol/L Normal 3.5-5.[address] [place] [address] [phone] Ast Redraw 15 U/L Normal 13-39 CBC Auto 10/12/2018 [facility] White Blood 6.9 10^3/uL Normal 3.5-10.8 Diff [address] [place] [address] [phone] Red Blood Count 4.95 10^6/uL High 3.70-4.87 [...] Red Blood Cells % 0 Laboratory 10/12/2018 [facility] Lactic Acid 0.8 mmol/L Normal 0.5-2.0 [address] [place] [address] [phone] Inr/Protime 10/12/2018 [facility] Inr 0.98 Normal 0.82-1.[address] [place] [address] [phone] Laboratory 10/12/2018 [facility] Partial 32.9 Normal 26.0- 36.3 test [place] [address] Time PTT [phone] Comp Metabolic 10/12/2018 [facility] Sodium 142 mmol/L Normal 135-[address] [place] [address] [phone] Chloride 110 mmol/L Normal 101-111 Co2 Carbon [...] Egfr Non- 59.8 >60 Egfr 72.4 >60 22 Potassium TNP mmol/L 3.5-5.0 23 Anion Gap 8 mmol/L Normal 2-11 Ast TNP U/L 13-39 24 Lipid Profile 10/12/2018 [facility] Triglycerides 255 mg/dL 25 (Trig/Chol/HDL) [address] [place] [address] [phone] Cholesterol 282 mg/dL 26 HDL Cholesterol 39.7 mg/dL 27 LDL Cholesterol 191 mg/dL 28 Laboratory test 10/12/2018 [facility] Troponin-I 0.00 ng/mL < 0.04 29 finding 101 (TnI) [place] [address] [phone] Type & Screen 10/12/2018 [facility] Patient Blood O Positive [address] [place] [address] [phone] Antibody Screen NEGATIVE Laboratory test 10/12/2018 [facility] Magnesium 2.5 mg/dL Normal 1.9-2.7 [address] [place] [address] [phone] TSH (Thyroid Stim Horm) 2.38 mcIU/mL Normal 0.34-5.60 31 Laboratory 10/12/2018 [facility] Point of Care 77 mg/dL Normal 70-100 32 test finding [address] [place] [address] [phone] Lipid Profile 10/07/2018 [facility] Triglycerides 431 33 (Trig/Chol/HDL [address] mg/dL ) [place] [address] [phone] Cholesterol 294 mg/dL 34 HDL Cholesterol 41.1 mg/dL 35 LDL Cholesterol (SEE NOTE) mg/dL 36 Laboratory 10/07/2018 [facility] TSH (Thyroid 1.29 Normal 0.34 -5.60 test finding [address] Stim Horm) mcIU/[place] [address] [phone] LDL Cholesterol Direct 203 mg/dL 37 1 Because ethnic data is not always [...] 5 Kidney failure <15 (or dialysis) 2 Standard intensity warfarin therapeutic range: 2.0-3.0 High intensity warfarin therapeutic range: 2.5-3.5 3 Troponin-I testing on Plasma Separator Tubes (PST) has a known false positive rate of 0.20-0.40%. All positive troponins reflex immediately to secondary confirmatory testing. Using the [employer] DxI 800 Access Immunoassay systems, the 99th percentile upper reference limit was demonstrated to be < 0.03 ng/mL. 4 Because ethnic data is not always readily [...] 15-29 5 Kidney failure <15 (or dialysis) 5 Desirable: <150 Borderline High: 150-199 High: 200-499 Very High: >500 6 Desirable: <200 Borderline High: 200-239 High: >239 7 Low: <40 Desirable: 40-60 High: >60 8 Desirable: <100 Near Optimal: 100-129 Borderline High: 130-159 High: 160-189 Very High: >189 9 [facility] Severe Sepsis and Septic Shock Management Bundle Measure requires all lactic acids initially measuring >2.0 mmol/L be repeated. 10 Therapeutic target for the treatment of diabetes mellitus patients is <7% HBA1C, and in selective patients <6.0%. Please refer to [place] [employer] diabetic care guidelines for further information. 11 SEE RESULT BELOW Name: LACEYMILVIA S : [address]: Terese Berry MD Acct: [id number] Unit: [id number] AGE: 53 Location: [place] [address] Re02/11/19 Dis: 02/12/19 SEX: F Status: DIS IN SPEC: [id number] MAGALY: 02/11/19-[address]: Bin Pastor MD REQ: [id number] RECD: 02/11/19 STATUS: ALAN COOPER DR: Ayleen Bobby MD _ [facility]: Urine Culture Procedure Result Reported Site Urine Culture Final 02/13/19- 855 ML Organism 1 ESCHERICHIA COLI Rosman Count >100,000 (Many) CFU/ML 1. ESCHERICHIA COLI [...] . END OF REPORT DEPARTMENT OF PATHOLOGY, [address] [place] [address] Hany Damon M.D. Director [facility] # [id number] 12 Assembly Hand: [id number] 14 [id number] 15 Because ethnic data is not always readily [...] 15-29 5 Kidney failure <15 (or dialysis) 16 Desirable: <150 Borderline High: 150-199 High: 200-499 Very High: >500 17 Desirable: <200 Borderline High: 200-239 High: >239 18 Low: <40 Desirable: 40-60 High: >60 19 Desirable: <100 Near Optimal: 100-129 Borderline High: 130-159 High: 160-189 Very High: >189 20 [place] Severe Sepsis and Septic Shock Management Bundle Measure requires all lactic acids initially measuring >2.0 mmol/L be repeated. 21 Standard intensity warfarin therapeutic range: 2.0-3.0 High intensity warfarin therapeutic range: 2.5-3.5 22 Because ethnic data is not always readily [...] 15-29 5 Kidney failure <15 (or dialysis) 23 Specimen Hemolyzed. Result may not be valid. Unable to report test result due to hemolysis. 24 Unable to report test result due to hemolysis. 25 Desirable: <150 Borderline High: 150-199 High: 200-499 Very High: >500 26 Desirable: <200 Borderline High: 200-239 High: >239 27 Low: <40 Desirable: 40-60 High: >60 28 Desirable: <100 Near Optimal: 100-129 Borderline High: 130-159 High: 160-189 Very High: >189 29 Troponin-I testing on Plasma Separator Tubes (PST) has a known false positive rate of 0.20-0.40%. All positive troponins reflex immediately to secondary confirmatory testing. Using the [employer] DxI 800 Access Immunoassay systems, the 99th percentile upper reference limit was demonstrated to be < 0.03 ng/mL. 30 Specimen hemolyzed. Unable to perform tests requested. [id number] was called for recollect at 1853 on 10/12/18 by [id number]. 31 Specimen hemolyzed. Unable to perform tests requested. [id number] was called for recollect at 1853 on 10/12/18 by [id number]. 32 Assembly Hand: [id number] 33 Desirable: <150 Borderline High: 150-199 High: 200-499 Very High: >500 34 Desirable: <200 Borderline High: 200-239 High: >239 35 Low: <40 Desirable: 40-60 High: >60 36 Unable to calculate LDL as triglyceride is > 400 37 Desirable: <100 Near Optimal: 100-129 Borderline High: 130-159 High: 160-189 Very High: >189 Procedures Date Code Description Status 02/12/2019 27723 EEG Recording Awake & Asleep Completed 02/11/2019 038060611 Diabetic Retinal Eye Exam Completed 10/13/2018 34440 ECHO Transthorasic Realtime 2D W Doppler & Color Flow Completed Hosp 09/13/2017 [id number] Colonoscopy Completed Medical Devices Description No Information Available Encounters Type Date Location Provider Dx Diagnosis Office Visit 02/24/2019 [facility] Candipatricia Mahoney, G40.909 Epilepsy, unsp, 9:29a Assnia plunkett M.D. 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 Filemon Dunaway (postepileptic) Shital G40.909 Epilepsy, unsp, not intractable, without status epilepticus Office Visit 02/12/2019 9:38a [facility] Lacey Blane, R56.9 Unspecified Assoc,pc ASSESSMENT SERVICES MANAGER convulsions Hospitalists B96.20 Unsp Escherichia coli as the cause of diseases classd elswhr N39.0 Urinary tract infection, site not specified Office Visit 02/11/2019 9:37a [facility] Lacey Blane, R56.9 Unspecified Assoc,pc ASSESSMENT SERVICES MANAGER convulsions Hospitalists R53.1 Weakness N39.0 Urinary tract infection, site not specified I10 Essential (primary) hypertension Z86.73 Prsnl hx of TIA (TIA), and cereb infrc w/o resid deficits F32.9 Major depressive disorder, single episode, unspecified Office Visit 10/13/2018 [facility] [place] R20.0 Anesthesia of 7:00a Clinic Peter, M.D. skin H53.8 Other visual disturbances Z86.73 Prsnl hx of TIA (TIA), and cereb infrc w/o resid deficits Office Visit 10/13/2018 8:20a [facility] Josefa R29.810 Facial Assoc,nia León, ASSESSMENT SERVICES MANAGER weakness Hospitalists H53.8 Other visual disturbances Office Visit 10/12/2018 8:19a [facility] Naya R29.810 Facial Assoc,nia Hylton NP weakness Hospitalists H53.8 Other visual disturbances Office Visit 10/09/2018 12:20p [facility] Ayleen Bobby, G47.33 Obstructive sleep Medicine - Ccmob apnea (adult) (pediatric) F33.9 Major depressive disorder, recurrent, unspecified E78.2 Mixed hyperlipidemia Assessments Date Code Description Provider 03/19/2019 G40.909 Epilepsy, unspecified, not Galindo Crowe NP intractable, without status epilepticus 02/24/2019 G40.909 Epilepsy, [...] Júnior Dunaway M.D. 02/12/2019 R56.9 Unspecified convulsions Lacey Blane, ASSESSMENT SERVICES MANAGER 02/12/2019 B96.20 Unspecified Escherichia coli [E. Lacey Blane, ASSESSMENT SERVICES MANAGER coli] as the cause of diseases classified elsewhere 02/12/2019 N39.0 Urinary tract infection, site not Lacey Blane, ASSESSMENT SERVICES MANAGER specified 02/12/2019 G40.909 Epilepsy, unspecified, not Júnior Dunaway M.D. 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 02/11/2019 R56.9 Unspecified convulsions Lacey Blane, ASSESSMENT SERVICES MANAGER 02/11/2019 G40.909 Epilepsy, unspecified, not Júnior Dunaway M.D. intractable, without status epilepticus 02/11/2019 R53.1 Weakness Lacey Blane, ASSESSMENT SERVICES MANAGER 02/11/2019 N39.0 Urinary tract infection, site not Lacey Blane, ASSESSMENT SERVICES MANAGER specified 02/11/2019 I10 Essential (primary) hypertension Lacey Blane, ASSESSMENT SERVICES MANAGER 02/11/2019 Z86.73 Personal history of transient Lacey Blane, ASSESSMENT SERVICES MANAGER ischemic attack (TIA), and cerebral infarction without residual deficits 02/11/2019 F32.9 Major depressive disorder, single Lacey Blane, ASSESSMENT SERVICES MANAGER episode, unspecified 10/13/2018 R20.0 Anesthesia of skin [place] M.D. 10/13/2018 R29.810 Facial weakness Josefa León, ASSESSMENT SERVICES MANAGER 10/13/2018 H53.8 Other visual disturbances [place] M.D. 10/13/2018 G45.9 Transient cerebral ischemic attack, Junior Colin M.D. , [facility], unspecified FASNC 10/13/2018 Z86.73 Prsnl hx of TIA (TIA), and cereb [place] [facility]. [facility] deficits 10/13/2018 H53.8 Other visual disturbances Josefa León, ASSESSMENT SERVICES MANAGER 10/12/2018 R29.810 Facial weakness Naya Hylton, ASSESSMENT SERVICES MANAGER 10/12/2018 H53.8 Other visual disturbances Naya Hylton, CHLOE 10/09/2018 G47.33 Obstructive sleep apnea (adult) Ayleen Bobby MD (pediatric) 10/09/2018 F33.9 Major depressive disorder, Ayleen Bobby MD recurrent, unspecified 10/09/2018 E78.2 Mixed hyperlipidemia Ayleen Bobby MD Plan of Treatment Future Appointment(s):04/22/2019 2:00 pm - Galindo Crowe NP at [place]08/19/2019 1:20 pm - Ayleen Bobby MD at [facility]2019 11:15 am - Flores Walker DNP, RN, RN DIABETES EDUCATOR-BC at [facility]03/19/2019 - Galindo Crowe, NPG40.909 Epilepsy, unspecified, not intractable, without status epilepticusFollow up:ONE MONTHRecommendations:Start to titrate up on Lamotrigine 25 mg. For the first two weeks, take 25 mg twice a day, then after two weeks, increase to 50 mg (2 tablets) twice a day. When you start to take Lamotrigine 50 mg twice a day, you may decrease Keppra to 500 mg twice a day for two weeks. In one month, follow up with me. Functional Status Description No Information Available Mental Status Description No Information Available Referrals Description No Information Available
--- OUTSIDE RECORDS SUMMARY | 2019-05-06 22:43 | XMS REPORT | Continuity of Care Document ---
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 NPSG 08/22/18: AHI 7.2/hour, tRDI 25/hour, crissy oxygen 91%, no REM sleep, poor sleep efficiency at 67.1%. wt 225, BMI 38.6 Social History Type Date Description Comments Sex Unknown ETOH Use Denies alcohol use Tobacco Use Start: Unknown End: Patient is a former smoker Quit 1992 Unknown Recreational Drug Use Denies Drug Use Smoking Status Reviewed: 03/24/19 Patient is a former smoker Quit 1992 [...] 1 Tablet By 30tabs Júnior Fischer 03/19/2019 500mg Mouth Twice Daily. Shital Dunaway [...] Talbert HFStacia 2 puffs every 4 Unknown hours as needed 108(90Base) mcg/Act Aerosol History Medications Atorvastatin Calcium take 1 tablet at 90tabs E78.2 Ayleen Bobby MD 2018 - 20mg bedtime 10/15/2018 Tablets Medications Administered in Office Medication SIG Qnty Indications Ordering Provider Date Inj, Regadenoson, 0.1 MG Junior Colin M.D., 10/22/2017 Injection FACC, FASNC Technetium TC 99M Junior Colin M.D., 10/22/2017 Tetrofosmin, Per Unit Dose FACC, FASNC Up To 40 Millicuries Injection Technetium TC 99M Ica Nuclear Schedule 10/19/2017 Tetrofosmin, Per Unit Dose Up To 40 Millicuries Injection Immunizations Description No Information Available Vital Signs Date Vital Result Comment 03/24/2019 11:16am Height 64 inches 5'4" Weight 211.25 lb Heart Rate 104 /min BP Systolic Sitting 98 mmHg Lue large cuff BP Diastolic Sitting 68 mmHg Lue large cuff Respiratory Rate 16 /min O2 % BldC Oximetry 96 % On Ra BMI (Body Mass Index) 36.3 kg/m2 03/19/2019 1:03pm Height 64 inches 5'4" Weight 213.00 lb Heart Rate 78 /min BP Systolic 128 mmHg BP Diastolic 86 mmHg BMI (Body Mass Index) 36.6 kg/m2 Results Test Date Facility Test Result H/L Range Note Comp Metabolic 02/23/2019 [facility] Sodium 142 mmol/L Normal 135-[address] [place] [address] [phone] Potassium 3.8 mmol/L Normal 3.5-5.0 Chloride 111 [...] Egfr 86.2 >60 1 Laboratory test 02/23/2019 [facility] C Reactive 2.95 mg/L Normal <8.[address] [place] [address] [phone] CBC Auto Diff 02/23/2019 [facility] White Blood 6.2 Normal 3.5 -10.[address] Count 10^3/[place] [address] [phone] Red Blood Count 4.21 10^6/uL Normal 3.70-4.87 [...] Blood Cells % 0.1 Ua Routine 02/18/2019 [facility] Ua Specific Walnut 1020 Ua PH 5 Ua Color yellow Ua Appera clear Ua WBC negative Ua Protein negative Ua Glucose normal Ua Ketones negative Ua Bilirubin negative Ua Urobilinogen normal Ua Nitrite negative Ua Occult Blood negative Inr/Protime 02/11/2019 [facility] Inr 0.91 Normal 0.82-1.[address] [place] [address] [phone] Laboratory test 02/11/2019 [facility] Partial 35.5 Normal 26.0 -38.[address] [place] [address] Time PTT [phone] CBC Auto Diff 02/11/2019 [facility] White Blood 7.1 10^3/uL Normal 3.5-10.[address] [place] [address] [phone] Red Blood Count 4.69 10^6/uL Normal 3.70-4.87 [...] Blood Cells % 0.0 Urinalysis Profile 02/11/2019 [facility] Urine Color Yellow [address] [place] [address] [phone] Urine Appearance Cloudy Urine Specific Walnut 1.031 High 1.010-1.030 Urine pH 6.0 Normal [...] Epithelial Present Abnormal Absent Laboratory test 02/11/2019 [facility] Troponin-I 0.00 <0.04 [address] (TnI) ng/[place] [address] [phone] Comp Metabolic 02/11/2019 [facility] Sodium 144 Normal 135- [address] mmol/[place] [address] [phone] Potassium 4.0 mmol/L Normal 3.5-5.0 Chloride 110 [...] Egfr 82.7 >60 4 Lipid Profile 02/11/2019 [facility] Triglycerides 130 mg/dL 5 (Trig/Chol/HDL) [address] [place] [address] [phone] Cholesterol 158 mg/dL 6 HDL Cholesterol 37.4 mg/dL 7 LDL Cholesterol 95 mg/dL 8 Laboratory test 02/11/2019 [facility] Lactic Acid 0.8 mmol/L Normal 0.5-2.[address] [place] [address] [phone] TSH (Thyroid Stim Horm) 4.81 mcIU/mL Normal 0.34-5.60 Hemoglobin A1c (Glyco HGB) 5.4 % Normal 4.0-5.6 10 Urine Culture And 02/11/2019 [facility] Urine SEE RESULT [address] [place] [address] [phone] Laboratory test 02/11/2019 [facility] Point of 71 mg/dL Normal 70-1 [address] Care Glucose 00 [place] [address] [phone] Laboratory test 02/06/2019 [facility] Ferritin 68.2 ng/mL Normal 11-3 13, [address] [place] [address] [phone] Comp Metabolic 02/06/2019 [facility] Sodium 143 mmol/L Normal 135- Panel [address] [place] [address] [phone] Potassium 3.8 mmol/L Normal 3.5-5.0 Chloride 109 [...] >60 15 Iron & Iron Binding 02/06/2019 [facility] Iron 60 g/dL Normal 50-[address] [place] [address] [phone] Unsaturated Iron Binding < 311 g/dL Total Iron Binding Capacity 326 g/dL Normal 250-450 Transferrin 233 mg/dL Normal 203-362 % Iron Saturation 18 % Normal 15-55 CBC Auto 02/06/2019 [facility] White Blood 5.4 10^3/uL Normal 3.5-10.[address] [place] [address] [phone] Red Blood Count 4.44 10^6/uL Normal 3.70-4.87 [...] Blood Cells % 0.0 Lipid Profile 01/31/2019 [facility] Triglycerides 154 mg/dL 16 (Trig/Chol/HDL) [address] [place] [address] [phone] Cholesterol 186 mg/dL 17 HDL Cholesterol 43.7 mg/dL 18 LDL Cholesterol 112 mg/dL 19 Laboratory test 10/12/2018 [facility] Potassium 3.9 mmol/L Normal 3.5-5.[address] [place] [address] [phone] Ast Redraw 15 U/L Normal 13-39 CBC Auto 10/12/2018 [facility] White Blood 6.9 10^3/uL Normal 3.5-10.[address] [place] [address] [phone] Red Blood Count 4.95 10^6/uL High 3.70-4.87 [...] Red Blood Cells % 0 Laboratory 10/12/2018 [facility] Lactic Acid 0.8 mmol/L Normal 0.5-2.0 [address] [place] [address] [phone] Inr/Protime 10/12/2018 [facility] Inr 0.98 Normal 0.82-1.[address] [place] [address] [phone] Laboratory 10/12/2018 [facility] Partial 32.9 Normal 26.0- 36.3 test finding 101 [facility] [place] [place] [address] Time PTT [phone] Comp Metabolic 10/12/2018 [facility] Sodium 142 mmol/L Normal 135-145 Panel [address] [place] [address] [phone] Chloride 110 mmol/L Normal 101-111 Co2 Carbon [...] TNP U/L 13-39 24 Lipid Profile 10/12/2018 [facility] Triglycerides 255 mg/dL 25 (Trig/Chol/HDL) [address] [place] [address] [phone] Cholesterol 282 mg/dL 26 HDL Cholesterol 39.7 mg/dL 27 LDL Cholesterol 191 mg/dL 28 Laboratory test 10/12/2018 [facility] Troponin-I 0.00 ng/mL < 0.04 [address] (TnI) [place], [place] [id number] [phone] Type & Screen 10/12/2018 [facility] Patient Blood O Positive [address] Type [place], [place] [address] [phone] Antibody Screen NEGATIVE Laboratory test 10/12/2018 [facility] Magnesium 2.5 mg/dL Normal 1.9-2.[address] [place], [place] [address] [phone] TSH (Thyroid Stim Horm) 2.38 mcIU/mL Normal 0.34-5.60 31 Laboratory 10/12/2018 [facility] Point of Care 77 mg/dL Normal 70-100 32 test finding [address] Glucose [place], [place] [address] [phone] Lipid Profile 10/07/2018 [facility] Triglycerides 431 33 (Trig/Chol/HDL [address] mg/dL ) [place] [address] [phone] Cholesterol 294 mg/dL 34 HDL Cholesterol 41.1 mg/dL 35 LDL Cholesterol (SEE NOTE) mg/dL 36 Laboratory 10/07/2018 [facility] TSH (Thyroid 1.29 Normal 0.34 -5.60 test finding [address] Stim Horm) mcIU/[place] [address] [phone] LDL Cholesterol Direct 203 mg/dL 37 1 [...] immediately to secondary confirmatory testing. Using the Max Rumpus DxI 800 Access Immunoassay systems, the 99th [...] 130-159 High: 160-189 Very High: >189 9 [facility] Severe Sepsis and Septic Shock Management Bundle Measure requires all lactic acids initially measuring >2.0 mmol/L be repeated. 10 Therapeutic target for the treatment of diabetes mellitus patients is <7% HBA1C, and in selective patients <6.0%. Please refer to [place] [employer] diabetic care guidelines for further information. 11 SEE RESULT BELOW Name: MILVIA RAHMAN : [address]: Terese Berry MD Acct: [id number] Unit: [id number] AGE: 53 Location: [place] [address] Re02/11/19 Dis: 02/12/19 SEX: F Status: DIS IN SPEC: [id number] MAGALY: 02/11/19 [facility] DR: Bin Pastor MD REQ: [id number] RECD: 02/11/19 STATUS: ALAN COOPER DR: Ayleen Bobby MD _ SOURCE: URINE SPDESC: ORDERED: Urine Culture Procedure Result Reported Site Urine Culture Final 02/13/19- 0856 ML Organism 1 ESCHERICHIA COLI [place] Count >100,000 (Many) CFU/ML 1. ESCHERICHIA COLI [...] . END OF REPORT DEPARTMENT OF PATHOLOGY, [address] [place] [address] Hany Damon M.D. Director [facility] # [id number] 12 Piece Jobber: [id number] 14 [id number] 15 Because ethnic data is not always [...] 130-159 High: 160-189 Very High: >189 20 [facility] Severe Sepsis and Septic Shock Management [...] immediately to secondary confirmatory testing. Using the Max Rumpus DxI 800 Access Immunoassay systems, the 99th percentile upper reference limit was demonstrated to be < 0.03 ng/mL. 30 Specimen hemolyzed. Unable to perform tests requested. [id number] was called for recollect at 1853 on 10/12/18 by [id number]. 31 Specimen hemolyzed. Unable to perform tests requested. [id number] was called for recollect at 1853 on 10/12/18 by [id number]. 32 Piece Jobber: [id number] 33 Desirable: <150 Borderline High: 150-199 High: 200-499 Very High: >500 34 Desirable: <200 Borderline High: 200-239 High: >239 35 Low: <40 Desirable: 40-60 High: >60 36 Unable to calculate LDL as triglyceride is > 400 37 Desirable: <100 Near Optimal: 100-129 Borderline High: 130-159 High: 160-189 Very High: >189 Procedures Date Code Description Status 02/12/2019 29948 EEG Recording Awake & Asleep Completed 02/11/2019 299076587 Diabetic Retinal Eye Exam Completed 10/13/2018 12521 ECHO Transthorasic Realtime 2D W Doppler & Color Flow Completed Hosp 09/13/2017 77124686 Colonoscopy Completed Medical Devices Description No Information Available Encounters Type Date Location Provider Dx Diagnosis Office Visit 02/24/2019 [facility] Candi Mahoney, G40.909 Epilepsy, unsp, 9:29a Assocnia M.D. 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 Filemon Dunaway (postepileptic) Shital G40.909 Epilepsy, unsp, not intractable, without status epilepticus Office Visit 02/12/2019 9:38a [facility] Lacey Arguelles, R56.9 Unspecified Assoc,pc [employer] convulsions Hospitalists B96.20 Unsp Escherichia coli as the cause of diseases classd elswhr N39.0 Urinary tract infection, site not specified Office Visit 02/11/2019 9:37a [facility] Lacey Arguelles, R56.9 Unspecified Assoc,pc [employer] convulsions Hospitalists R53.1 Weakness N39.0 Urinary tract infection, site not specified I10 Essential (primary) hypertension Z86.73 Prsnl hx of TIA (TIA), and cereb infrc w/o resid deficits F32.9 Major depressive disorder, single episode, unspecified Office Visit 10/13/2018 [facility] [place] R20.0 Anesthesia of 7:00a Filemon Green M.D. skin H53.8 Other visual disturbances Z86.73 Prsnl hx of TIA (TIA), and cereb infrc w/o resid deficits Office Visit 10/13/2018 8:20a [facility] R29.810 Facial Assoc,pc Mau, [employer] weakness Hospitalists H53.8 Other visual disturbances Office Visit 10/12/2018 8:19a [facility] R29.810 Facial Assoc,pc Concetta [employer] weakness Hospitalists H53.8 Other visual disturbances Office Visit 10/09/2018 12:20p [facility] Ayleen Bobby, G47.33 Obstructive sleep Medicine - Ccmob apnea (adult) (pediatric) F33.9 Major depressive disorder, recurrent, unspecified E78.2 Mixed hyperlipidemia Assessments Date Code Description Provider 03/24/2019 G47.33 Obstructive sleep apnea (adult) Flores Walker DNP, RN, (pediatric) SHELL FREEZING MACHINE OPERATOR- 03/19/2019 G40.909 Epilepsy, unspecified, not Galindo Crowe [...] Dunaway M.D. 02/12/2019 R56.9 Unspecified convulsions Lacey Arguelles NP 02/12/2019 B96.20 Unspecified Escherichia coli [E. Lacey Blane, [employer] coli] as the cause of diseases classified elsewhere 02/12/2019 N39.0 Urinary tract infection, site not Lacey Blane, [employer] BL[employer]BLER specified 02/12/2019 G40.909 Epilepsy, unspecified, not Júnior Dunaway M.D. 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 02/11/2019 R56.9 Unspecified convulsions Lacey Blane, VEN[employer]IAN BLIND ASSEMBLER 02/11/2019 G40.909 Epilepsy, unspecified, not Júnior Dunaway M.D. intractable, without status epilepticus 02/11/2019 R53.1 Weakness Lacey Blane, [employer]BLER 02/11/2019 N39.0 Urinary tract infection, site not Lacey Blane, [employer]BLER specified 02/11/2019 I10 Essential (primary) hypertension Lacey Blane, VEN[employer]IAN BLIND ASSEMBLER 02/11/2019 Z86.73 Personal history of transient Lacey Blane, [employer]BLER ischemic attack (TIA), and cerebral infarction without residual deficits 02/11/2019 F32.9 Major depressive disorder, single Lacey Blane, [employer]BLER episode, unspecified 10/13/2018 R20.0 Anesthesia of skin [place] Green M.D. 10/13/2018 R29.810 Facial weakness Josefa León, CHLOE 10/13/2018 H53.8 Other visual disturbances [place] Green M.D. 10/13/2018 G45.9 Transient cerebral ischemic attack, Junior Colin M.D. , FAC, unspecified FASNC 10/13/2018 Z86.73 Prsnl hx of TIA (TIA), and cereb [place] Green M.D. infrc w/o resid deficits 10/13/2018 H53.8 Other visual disturbances Josefa León, CHLOE 10/12/2018 R29.810 Facial weakness Naya Hylton, [employer]ER 10/12/2018 H53.8 Other visual disturbances Naya Hylton, CHLOE 10/09/2018 G47.33 Obstructive sleep apnea (adult) Ayleen Bobby MD (pediatric) 10/09/2018 F33.9 Major depressive disorder, Ayleen Bobby MD recurrent, unspecified 10/09/2018 E78.2 Mixed hyperlipidemia Ayleen Bobby MD Plan of Treatment Future Appointment(s):09/23/2019 1:30 pm - Flores Walker DNP, RN, SHELL FREEZING MACHINE OPERATOR-BC at [facility]04/22/2019 2:00 pm - Galindo Crowe NP at [facility]08/19/2019 1:20 pm - [facility] Bobby [facility] Flores Walker DNP, RN, SHELL FREEZING MACHINE OPERATOR-BCG47.33 Obstructive sleep apnea (adult) (pediatric)Comments:Mild. NPSG 08/22/18: AHI 7.2/ hour, tRDI 25/hour, crissy oxygen 91%, no REM sleep, poor sleep efficiencyat 67.1 %. wt 225, BMI 38.6 On CPAP auto AHI 5.6/hourFollow up:6 monthsRecommendations: Continue PAP device, Benefitting and compliant with treatment. [...] or more may have an effect onyour equipment; if you are experiencing problems please call for an appointment. If you have any further questions, please call the [facility] at [phone]. Functional Status Description No Information Available Mental Status Description No Information Available Referrals Description No Information Available
[2019-05-06] MEDS ORDERED: Valproic Acid IV(*) 500 MG in NS 0.9% 100 ML* 100 ML IVPB ONE ×2 (22:45→23:29)
[2019-05-06] MEDS ORDERED: LORazepam INJ* 2 MG/ML 1 ML VIAL IV PUSH ONE (22:45)
[2019-05-06] MEDS ORDERED: Lorazepam PYXIS KEY PRN (22:45)
[2019-05-06] MEDS ORDERED: Lorazepam PYXIS KEY ONE (22:48)
[2019-05-06] MEDS ORDERED: NS 0.9% 100 ML* 100 ML ONE (22:50)
--- NOTE | 2019-05-06 22:50 | ED ---
Neurological HPI - HPI Summary HPI Summary: Pt is a 53 y/o F presenting to the ED with a chief complaint of a seizure. LEVEL 5 CAVEAT: Pts full hx and physical is unobtainable d/t decreased level of consciousness. Pts family states she went to take a nap around 5:30, was asleep for about four hours, then called them into the room and was only able to say seizure and communicated in writing that she needed to go to the hospital. Pt has not spoken since the episode. Notable hx of seizures that she was not on medications for until recently as well as CVA. Pt is compliant w/ medications. - History of Current Complaint Chief Complaint: EDSeizure Stated Complaint: SEIZURES PER DAUGHTER Time Seen by Provider: 05/06/19 22:24 Last Known Well Date: 05/06/19 around 1729 Hx Obtained From: Patient, Family/Obgyn Specialist Onset/Duration: Sudden Onset, Started hours ago - around 2129, Still Present Onset Severity: Moderate Current Severity: Mild Seizure Severity: Moderate Neurological Deficit Location: Generalized Pain Intensity: 0 Pain Scale Used: 0-10 Numeric Episode Lasting: Seconds/Minutes Syncope Context: Unwitnessed, Unknown Seizure Character: Total-Clonic Aggravating: Unknown Alleviating: Unknown Associated Signs and Symptoms: Positive: Seizure, Decreased Level of Consciousness, Impaired Speech Related Hx: Medication Comliant, Seizure - Additional Pertinent History Primary Care Physician: TOBY - Allergy/Home Medications Allergies/Adverse Reactions: Allergies Allergy/AdvReac Type Severity Reaction Status Date / Time diphenhydramine Allergy Anaphylatic Verified 05/06/19 22:19 [From Benadryl] Shock latex Allergy blisters Verified 05/06/19 22:19 on skin Penicillins Allergy Rash Verified 05/06/19 22:19 phenobarbital Allergy Unknown Verified 05/06/19 22:19 Reaction Details propoxyphene Allergy See Comment Verified 05/06/19 22:19 [From Darvocet-N] Sulfa (Sulfonamide Allergy Rash Verified 05/06/19 22:19 Antibiotics) PMH/Surg Hx/FS Hx/Imm Hx Previously Healthy: Yes Endocrine/Hematology History: Reports: Hx Anticoagulant Therapy, Hx Diabetes, Hx Thyroid Disease - hypo Cardiovascular History: Reports: Hx Deep Vein Thrombosis - x3 in LUE, Hx Hypercholesterolemia, Hx Hypertension - TAKES MEDICATION Denies: Hx Pacemaker/ICD, Other Cardiovascular Problems/Disorders Respiratory History: Reports: Hx Asthma Denies: Other Respiratory Problems/Disorders GI History: Reports: Hx Gastroesophageal Reflux Disease, Other GI Disorders - CA OF ESOPH/ ESOPH REMOVED. 10/2017 History: Denies: Hx Renal Disease Musculoskeletal History: Reports: Hx Fibromyalgia Denies: Other Musculoskeletal History Sensory History: Reports: Hx Contacts or Glasses - glasses Denies: Hx Hearing Aid Opthamlomology History: Reports: Hx Contacts or Glasses - glasses Neurological History: Reports: Hx CVA, Hx Nerve Disease - fibromyalgia, Hx Seizures - with strobe lights, no meds, last one 3-4 yrs ago, Hx Transient Ischemic Attacks (TIA) - October 2017 Denies: Other Neuro Impairments/Disorders Psychiatric History: Reports: Hx Anxiety - on meds, Hx Depression - on meds Denies: Hx Panic Disorder - Cancer History Cancer Type, Location and Year: esophagus Hx Chemotherapy: Yes Hx Radiation Therapy: Yes - Surgical History Surgery Procedure, Year, and Place: [place]ST[place]CTOMY, 2007, [place]. GALLBLADDER, 2009 , [place]. ESOPHAGUS REMOVAL Hx Anesthesia Reactions: Yes - diff to wake up Infectious Disease History: No Infectious Disease History: Reports: Hx of Known/Suspected MRSA, Hx Shingles Denies: Traveled Outside the [place] in Last 30 Days - Family History Known Family History: Positive: Other - No FHx of breast CA Family History: No FHx of breast CA - Social History Alcohol Use: None Hx Substance Use: No Substance Use Type: Reports: None Hx Tobacco Use: Yes Smoking Status (MU): Former Smoker Review of Systems - ROS Summary Review of Systems Summary: LEVEL 5 CAVEAT: Pts full hx and physical is unobtainable d/t decreased level of consciousness. Neurological: Other - seizure, impaired speech All Other Systems Reviewed And Are Negative: No Physical Exam - Summary Physical Exam Summary: Appearance: Pt is alert and will meet my eyes and voice, but is nonverbal. Skin: Warm, dry, no obvious rash Eyes: sclera anicteric, no conjunctival pallor. Gaze is conjugate, pt observed to look left as well as right, but will not move eyes to command. ENT: mucous membranes moist, pharynx appears normal Neck: Supple, nontender Respiratory: Clear to auscultation, no signs of respiratory distress Cardiovascular: Normal S1, S2. No murmurs. Normal distal pulses in tibial and radial bilaterally. Abdomen: Soft, nontender, normal active bowel sounds present Musculoskeletal: Strength/ROM Intact Neurological: Pt is awake and apparently alert but nonverbal. She only follows commands variably, for example she squeezes her right hand but not her other hand. Gaze is conjugate. Pt observed to look to the left as well as the right, but will not move her eyes to command. There is no facial asymmetry. She has good muscle tone in all 4 extremities with no flaccidity noted. Toes are downgoing bilaterally. She was able to grasp my right hand, but was unable to grasp left hand to stimulation. Movement of L fingers and wrist at times was noted. Psychiatric: affect is normal, does not appear anxious or depressed Triage Information Reviewed: Yes Vital Signs On Initial Exam: Initial Vitals Temp Pulse Resp BP Pulse Ox 98.8 F 87 20 121/103 98 05/06/19 22:16 05/06/19 22:16 05/06/19 22:16 05/06/19 22:16 05/06/19 22:16 Vital Signs Reviewed: Yes Completion Of Physical Exam Limited Due To: Level 5 - [place] Coma Scale Best Eye Response: 3 - To Speech Best Motor Response: 6 - Obeys Commands Best Verbal Response: 1 - None Coma Scale Total: 10 Procedures - Sedation Patient Received Moderate/Deep Sedation with Procedure: No Diagnostics - Vital Signs Vital Signs Temp Pulse Resp BP Pulse Ox 05/06/19 22:16 98.8 F 87 20 121/103 98 - Laboratory Result Diagrams: 05/06/19 22:50 05/06/19 22:50 Lab Statement: Any lab studies that have been ordered have been reviewed, and results considered in the medical decision making process. - CT Brain CT CT Interpretation Completed By: Radiologist Summary of CT Findings: No acute intracranial findings. Normal head CT. ED physician has reviewed this report. - EKG 2241 Cardiac Rate: NL - 86bpm EKG Rhythm: Sinus Rhythm ST Segment: Normal Ectopy: None Summary of EKG Findings: EKG at 2241 shows NSR at 86 BPM, P waves, QRS complex, and T waves are within normal limits, T waves and intervals are normal, no ischemic changes. This is a normal EKG. ED physician has reviewed and interpreted this EKG. Re-Evaluation - Re-Evaluation First Eval Re-Evaluation Time: 04:40 Change: Improved Comment: The pt has been reexamined several times throughout the ED course. Initially she presented awake, eyes open, following simple commands. When Dr. Luna, hospitalist, evaluated the pt she found her to have nystagmus and abnormal eye movements concerning for subclinical seizures. Efforts to transfer the patient have been stymied by lack of beds at [facility] and [facility], they are unable to accept the patient. The patient has at times been responsive per the RN caring for her, as well as on some of my re-evals; she has had purposeful movements, and at times has been able to verbalize or nod yes/no to questions. We have been in touch with Dr. Menjivar as well as Dr. Sheriff, and at this point our best option to is to get a stat EEG and see if there is any epileptiform activity. While this cannot rule out subclinical seizure activity that is coming and going, it is our best option given the lack of ability to transfer the patient to a reasonably close facility. Course/Dx - Course Course Of Treatment: Pt is a 53 y/o F presenting to the ED with a chief complaint of a seizure. LEVEL 5 CAVEAT: Pts full hx and physical is unobtainable d/t decreased level of consciousness. Pts family states she went to take a nap around 5:30, was asleep for about four hours, then called them into the room and was only able to say seizure and communicated in writing that she needed to go to the hospital. Pt has not spoken since the episode. Notable hx of seizures that she was not on medications for until recently as well as CVA. Pt is compliant w/ medications. On exam, pt is awake and apparently alert but nonverbal. She only follows commands variably, for example she squeezes her right hand but not her other hand. Gaze is conjugate. Pt observed to look to the left as well as the right, but will not move her eyes to command. There is no facial asymmetry. She has good muscle tone in all 4 extremities with no flaccidity noted. Toes are downgoing bilaterally. She was able to grasp my right hand, but was unable to grasp left hand to stimulation. Movement of L fingers and wrist at times was noted. EKG at 2241 shows NSR at 86 BPM, P waves, QRS complex, and T waves are within normal limits, T waves and intervals are normal, no ischemic changes. This is a normal EKG. ED physician has reviewed and interpreted this EKG. Brain CT shows: No acute intracranial findings. Normal head CT. I spoke with Dr. Luna at 2340 about the pt's present condition. Pt will be transferred to [facility] for continuous EEG monitoring. I spoke with [facility] at 0050 who will be checking their bed availability and calling back. I spoke with [facility] at 0106 who states they do not have any available beds currently, and recommend transferring to [facility]. I spoke with [facility] at 0130 who will be calling back after speaking with neurology. [facility] does not have beds. [facility] also has no beds. The imaging technician will be coming in as per Dr. Sheriff after discussions with Dr. Luna and Dr. Menjivar. EEG showed non-epileptic activity. Pt able to be admitted to [facility] for further eval. - Diagnoses Provider Diagnoses: Seizures - Critical Care Time Critical Care Time: 30-74 min Discharge ED - Sign-Out/Discharge Documenting (check all that apply): Patient Departure - Discharge Plan Condition: Guarded Disposition: ADMITTED TO [facility] Referrals: Ayleen Bobby MD [Primary Care Provider] - - Billing Disposition and Condition Condition: GUARDED Disposition: Admitted to [facility] - Attestation Statements Document Initiated by Smith: Yes Documenting Scribe: Evie Quevedo Provider For Whom Smith is Documenting (Include Credential): Madi Ogden MD. Scribe Attestation: Evie Kessler, garoed for Madi Ogden MD. on 05/07/19 at 0629. Scribe Documentation Reviewed: Yes Provider Attestation: The documentation as recorded by the octaviaibwyatt, Evie Quevedo accurately reflects the service I personally performed and the decisions made by me, Madi Ogden MD. Status of Scribe Document: Viewed Consult Consult: 2324 - Dr. Menjivar recommended giving a 500mg load of Keppra and increasing her Valproic acid to 1,000mg. 2340 - I spoke with Dr. Luna about pt's present condition who will come to evaluate pt for admission to [facility].
[2019-05-06 23:04] LABS: ABS Eosinophils 0.1 10^3/ul (0-0.6); ABS Lymphocytes 0.8 10^3/ul (1.0-4.8); ABS Monocytes 0.3 10^3/ul (0-0.8); ABS Neutrophils 3.8 10^3/ul (1.5-7.7); Eosinophil % 1.9 %; Hematocrit 39 % (35-47); Hemoglobin 13.6 g/dL (12.0-16.0); Lymphocyte % 15.4 %; Mean Corpuscular HGB Conc 35 g/dL (31-36); Mean Corpuscular Hemoglobin 30 pg (27-31); Mean Corpuscular Volume 85 fL (80-97); Mean Platelet Volume 6.5 fL (7.4-10.4); Platelet Count 215 10^3/uL (150-450); Red Blood Count 4.59 10^6 /uL (3.70-4.87); Red Cell Distribution Width 14 % (10-15)
[2019-05-06 23:14] LABS: Albumin 3.7 g/dL (3.2-5.2); Anion Gap 7 mmol/L (2-11); BUN/Creatinine Ratio 23.1 (8-20); Blood Urea Nitrogen 24 mg/dL (6-24); CO2 Carbon Dioxide 26 mmol/L (22-32); Calcium 9.4 mg/dL (8.6-10.3); Chloride 108 mmol/L (101-111); EGFR African American 67.3 (>60); EGFR Non-African American 55.6 (>60); Glucose 118 mg/dL (70-100); Magnesium 2.3 mg/dL (1.9-2.7); Potassium 4.2 mmol/L (3.5-5.0); Sodium 141 mmol/L (135-145); Total Protein 6.7 g/dL (6.4-8.9)
[2019-05-06 23:15] LABS: ALT 20 U/L (7-52); AST 13 U/L (13-39); Albumin/Globulin Ratio 1.2 (1-3); Alkaline Phosphatase 145 U/L (34-104)
[2019-05-06 23:20] LABS: Alcohol < 10 mg/dL (<10)
[2019-05-06] MEDS ORDERED: levETIRAcetam 500 MG IVPREMIX* 500 MG/100 ML BAG IVPB ONE (23:28)
[2019-05-07] MEDS ORDERED: Lorazepam PYXIS KEY PRN ×2 (01:08→01:42)
[2019-05-07] MEDS ORDERED: LORazepam INJ* 2 MG/ML 1 ML VIAL IV PUSH ONE ×3 (01:08→08:30)
[2019-05-07] MEDS ORDERED: levETIRAcetam 500 MG IVPREMIX* 500 MG/100 ML BAG IVPB ONE (02:08)
[2019-05-07] MEDS ORDERED: ALPRAZolam TAB* 0.5 MG PO ONE (04:35)
--- NOTE | 2019-05-07 06:31 | HP ---
History of Present Illness - History of Present Illness History of Present Illness: 53 yo female with history of stroke and seizure disorder brought in to the hospital following an unwitnessed seizure at home. Then pt had witnessed seizure in the ER and was given 500 of keppra and 1g valproic acid. Following that, she was unresponsive for a while with epileptic nystagmus. Neurology was called and recommended IV ativan and another 500 of keppra. Neurology also recommended transfer to higher level of care for continuous EEG monitoring of subclinical seizures. 3 hospitals were called, no beds available. S/P all these anti-convulsive medications, she is very drowsy but at least responding to auditory stimuli. Given the paroxysmal events and her drowsy state, distribution tech was called in for a spot EEG which now showed no epileptic activities. - Past Medical History INSTRUCTIONAL LEADER: CVA, Seizure Review of Systems - Measurements Intake and Output: Intake and Output Last 24 Hours 05/04/19 05/05/19 05/06/19 05/07/19 06:59 06:59 06:59 06:59 Weight 165 lb - Review of Systems General Comments: patient too sedated to answer questions Objective Active Medications: Heparin Sodium (Porcine) (Heparin Vial(*)) 5,000 units SUBCUT Q8HR PADMAJA Sodium Chloride (Ns 0.9% 1000 Ml) 1,000 mls @ 125 mls/hr IV Q8H PADMAJA Miscellaneous (Ativan Pyxis Kendrick) 1 ea N/A .ATIVAN IV KENDRICK PRN PRN Reason: PYXIS KENDRICK Vital Signs - 8 hr 05/06/19 05/06/19 05/06/19 22:53 23:11 23:29 Pulse Rate 88 85 Respiratory 18 18 21 Rate Blood Pressure 114/83 (mmHg) O2 Sat by Pulse 92 93 Oximetry 05/06/19 05/07/19 05/07/19 23:43 00:00 00:13 Pulse Rate 83 87 85 Respiratory 14 13 13 Rate Blood Pressure 126/82 112/83 (mmHg) O2 Sat by Pulse 95 95 95 Oximetry 05/07/19 05/07/19 05/07/19 00:43 01:00 01:13 Pulse Rate 85 85 87 Respiratory 13 13 15 Rate Blood Pressure 100/81 116/74 (mmHg) O2 Sat by Pulse 95 96 94 Oximetry 05/07/19 05/07/19 05/07/19 01:43 01:52 02:00 Pulse Rate 85 85 Respiratory 13 18 14 Rate Blood Pressure 115/76 (mmHg) O2 Sat by Pulse 95 96 Oximetry 05/07/19 05/07/19 05/07/19 02:13 02:43 03:00 Pulse Rate 85 89 91 Respiratory 16 24 16 Rate Blood Pressure 111/81 107/75 (mmHg) O2 Sat by Pulse 97 94 94 Oximetry 05/07/19 05/07/19 05/07/19 03:14 03:43 04:00 Pulse Rate 88 93 87 Respiratory 14 15 15 Rate Blood Pressure 117/72 125/82 (mmHg) O2 Sat by Pulse 94 95 96 Oximetry 05/07/19 05/07/19 05/07/19 04:14 04:44 05:00 Pulse Rate 90 91 85 Respiratory 16 14 13 Rate Blood Pressure 115/82 130/80 (mmHg) O2 Sat by Pulse 96 97 96 Oximetry 05/07/19 05/07/19 05/07/19 05:14 05:44 06:00 Pulse Rate 85 88 86 Respiratory 17 13 17 Rate Blood Pressure 104/77 113/86 (mmHg) O2 Sat by Pulse 94 96 96 Oximetry 05/07/19 06:14 Pulse Rate 87 Respiratory 12 Rate Blood Pressure 118/72 (mmHg) O2 Sat by Pulse 94 Oximetry Oxygen Devices in Use Now: None Appearance: drowsy, wakes up to voice Eyes: No Scleral Icterus, - Ears/Nose/Mouth/Throat: Mucous Membranes Moist Neck: NL Appearance and Movements; NL JVP Respiratory: Symmetrical Chest Expansion and Respiratory Effort, Clear to Auscultation Cardiovascular: NL Sounds; No Murmurs; No JVD Abdominal: NL Sounds; No Tenderness; No Distention Extremities: No Edema Skin: No Rash or Ulcers Neurological: - - drowsy, wakes up to voice Result Diagrams: 05/06/19 22:50 05/06/19 22:50 Assess/Plan/Problems-Billing Assessment: - Patient Problems (1) Seizure disorder Current Visit: No Status: Acute Code(s): G40.909 - EPILEPSY, UNSP, NOT INTRACTABLE, WITHOUT STATUS EPILEPTICUS SNOMED Code(s): 987871131 Comment: multiple seizures, s/p 4 g of ativan, 1g of keppra and 1g of valproic acid. patient would benefit for transfer to another facility for continuuous monitoring for the paroxysmal events but no beds were available. A spot EEG was done this am which showed no epileptic activity at this time. Epileptic nystagmus resolved, she is opening her eyes to voice stimuli. Neurology will be following (2) Full code status Current Visit: Yes Status: Acute Code(s): Z78.9 - OTHER SPECIFIED HEALTH STATUS SNOMED Code(s): 182315435 (3) Hypertension Current Visit: No Status: Acute Code(s): I10 - ESSENTIAL (PRIMARY) HYPERTENSION SNOMED Code(s): 51881549 (4) DVT prophylaxis Current Visit: Yes Status: Acute Code(s): Z29.9 - ENCOUNTER FOR PROPHYLACTIC MEASURES, UNSPECIFIED SNOMED Code(s): 625003125 Comment: heparin scc
[2019-05-07 06:38] LABS: INR 1.03 (0.82-1.09)
[2019-05-07 06:49] LABS: Urine Appearance Cloudy; Urine Bilirubin Negative (Negative); Urine Blood Negative (Negative); Urine Color Yellow; Urine Glucose Negative (Negative); Urine Ketones Negative (Negative); Urine Nitrite Negative (Negative); Urine Protein Negative (Negative); Urine Specific Gravity 1.024 (1.010-1.030); Urine Urobilinogen Negative (Negative)
[2019-05-07 06:54] LABS: Hematocrit 36 % (35-47); Hemoglobin 12.7 g/dL (12.0-16.0); Mean Corpuscular HGB Conc 35 g/dL (31-36); Mean Corpuscular Hemoglobin 30 pg (27-31); Mean Corpuscular Volume 86 fL (80-97); Mean Platelet Volume 6.4 fL (7.4-10.4); Platelet Count 197 10^3/uL (150-450); Red Blood Count 4.22 10^6 /uL (3.70-4.87); Red Cell Distribution Width 14 % (10-15); White Blood Count 4.7 10^3/uL (3.5-10.8)
[2019-05-07 06:58] LABS: Albumin 3.5 g/dL (3.2-5.2); Albumin/Globulin Ratio 1.3 (1-3); BUN/Creatinine Ratio 23.4 (8-20); EGFR African American 75.7 (>60); EGFR Non-African American 62.5 (>60); Globulin 2.6 g/dL (2-4); Magnesium 2.2 mg/dL (1.9-2.7); Potassium 4.2 mmol/L (3.5-5.0); Total Bilirubin 0.6 mg/dL (0.2-1.0); Total Protein 6.1 g/dL (6.4-8.9)
[2019-05-07 07:06] LABS: Urine Benzodiazepine Screen None Detected (None Detect); Urine Opiates Screen None Detected (None Detect)
[2019-05-07 07:08] LABS: Urine Bacteria Absent (Absent); Urine Red Blood Cell 1+(3-5/hpf) (Absent); Urine Squamous Epithelial Cell Present (Absent); Urine White Blood Cell 1+(6-10/hpf) (Absent)
[2019-05-07 07:30] LABS: TSH (Thyroid Stimulating Horm) 1.33 mcIU/mL (0.34-5.60)
[2019-05-07] MEDS: NS 0.9% 1000 ML** 1,000 ML IV SCH ×2 (07:41→14:31)
[2019-05-07] MEDS: Heparin VIAL(*) 5000 UNITS/ML VIAL (FIVE THOUSAND) SUBCUT SCH ×2 (08:05→14:27)
--- NOTE | 2019-05-07 08:49 | EEG ---
ELECTROENCEPHALOGRAPHY: DATE OF STUDY: 05/07/19 - ROOM #ICU-03 PATIENT OF: Dr. Ogden And Dr. Green. CLINICAL PROBLEM: She is a 53-year-old woman being evaluated for intermittent seizures last night with some abnormal eye movements and generalized tonic seizures. She received in addition to her routine meds 1000 mg of Keppra last night, 1000 mg of Depakote and Ativan. MEDICATIONS: Include: 1. Aspirin. 2. Atorvastatin. 3. Lisinopril. 4. Zoloft. 5. Keppra at home. REPORT: With the patient likely asleep, background consists of diffuse irregular moderate amplitude beta activity with some admixed theta range frequencies. No epileptiform potentials, focal abnormalities or major asymmetries of background is noted. CLINICAL IMPRESSION: This EEG done in the postictal state showed some slowing probably secondary to the seizure she had as well as prominent beta activity presumably secondary to medications she has received. There are no epileptiform potentials. There is no evidence of subclinical seizures. [id number]/[facility] #: [id number] [facility]
[2019-05-07] MEDS ORDERED: levETIRAcetam IV* 750 MG in NS 0.9% 100 ML* 100 ML IVPB ONE (09:00)
--- NOTE | 2019-05-07 09:22 | CONS ---
CC: Galindo Crowe NP * NEUROLOGICAL CONSULTATION REPORT: DATE OF CONSULT: 05/07/19 HISTORY OF PRESENT ILLNESS: Shireen is a 53-year-old woman I was asked to see for recurrent seizures over the course of the night. She went to sleep at about 5:30 yesterday evening, slept for 4 hours and then called her family into the room, said seizure, and went on to have further seizures throughout. In the night, there was a seizure in the ER and then abnormal eye movements going quickly back and forth. What we initially did for her is Dr. Ogden had loaded with 500 mg of Depakote, I recommended completing a load to 1000 mg as well as giving 500 mg of Keppra. This was at roughly 11:30. When she was unresponsive and has rapid eye movements back and forth, I recommended seeing if we could transfer her because she might need ongoing monitoring to see if she was having subclinical seizures. I also recommended giving additional Ativan and another 500 mg of Keppra. I was then told that neither [facility] nor [facility] could accept her because their beds were full, and I recommended getting an EEG if the Ativan did not work. It initially worked and the eye movements stopped and she was beginning to move all extremities according to Dr. Ogden. However, later in the night, she was not moving any extremities and did not open her eyes. Dr. Perera called me at that point and inquired about getting an EEG. I at that point recommended planning technician come in and do an EEG. EEG has been done. The patient is now waking up. Of note, the patient has recently seen Dr. Green during the 02/24/19 hospitalization for seizures and had several seizures in the ER. She had been on Keppra before that and her current dose of Keppra, according to her note, is at 750 twice a day. She has had, per Dr. Green's note, longstanding history of seizures dating back to possibly teenage years and had been quiet for a long time until this year, her last seizure had been 5 years ago. She was then admitted in January with seizure-like activity and then had further seizures in February as Dr. Green outlines. Of note, she has had a history of a stroke and a more recent TIA. PAST MEDICAL HISTORY: She has other medical problems that include type 2 diabetes, hypertension, depression, fibromyalgia, hypothyroidism, possible DVT in the past, possible stroke in the past, esophageal cancer, cervical cancer, status post chemotherapy and surgery. PAST SURGICAL HISTORY: Includes hysterectomy, tubal ligation, esophageal resection with reanastomosis, cholecystectomy. MEDICATIONS: At home, include: 1. Keppra 750 twice a day. 2. Zoloft 100 b.i.d. 3. Omeprazole 40 mg b.i.d. 4. Lisinopril 5 mg daily. 5. EpiPen 0.3 mg IM p.r.n. 6. Lipitor 80 mg daily. 7. Aspirin 81 mg daily. ALLERGIES: She is allergic to BENADRYL, PHENOBARBITAL, LATEX, PENICILLIN, PROPOXYPHENE, and SULFA. SOCIAL HISTORY: She is adopted with unclear family history. She is a former smoker, 5 to 10-pack year history, nothing for the past couple of decades. There is no alcohol or drug abuse. REVIEW OF SYSTEMS: Unable to be obtained from the patient other than that she is now able to say that she is tired. PHYSICAL EXAMINATION: On exam, temperature 98.8, pulse 87, respiratory rate 20 , blood pressure 121/103. She appeared tired, but opened her eyes to voice. She said that she was tired. She knew her name. She could follow non-midline commands. She had no abnormal eye movements. She fixed and followed. Cranial nerves II through XII were normal. Disc were sharp. Motor exam was at least 5- /5 bilaterally. Effort was not full. Sensation grossly intact to light touch. Chest: Clear. Cardiovascular: Regular rate and rhythm. Abdomen was soft with positive bowel sounds. DIAGNOSTIC STUDIES/LAB DATA: Her EEG did not show any seizure activity that was done at about 4:50 this morning. She had a normal head CT. Blood work included normal CBC, normal CMP, other than a glucose of 118, creatinine 1.04. Serum alcohol level was normal. Lamotrigine level is 6 as of 05/05/19. Reviewed Galindo Crowe's most recent note, in addition to her Keppra that she is on, he says she is taking 500 twice a day, on 04/22/19, she was on lamotrigine with an increasing dose. His note says that she was slowly increasing lamotrigine and the Keppra was being discontinued. IMPRESSION AND PLAN: This woman had frequent seizures yesterday presumably because of a tapering dose of Keppra, but with a Lamictal level that was reasonable a couple of days ago. For now, I am going to continue the Keppra 750 twice a day, confirm what dose she is actually taking and she should continue the dose of Lamictal as well and this should be confirmed with her so she does not get something that she is not taking, but her dose as written is 100 in the morning and 150 at night. [id number]/[facility] #: [id number] MTDD
--- NOTE | 2019-05-07 13:00 | DS ---
DISCHARGE SUMMARY: DATE OF ADMISSION: 05/07/19 DATE OF DISCHARGE: 05/07/19 HISTORY OF PRESENT ILLNESS/HOSPITAL COURSE: This patient is a 53-year-old white female with a history of seizures, treated with Keppra (500 mg BID), who was brought to the emergency room last night following a seizure at home. On arrival to the ED, the patient experienced another generalized seizure, and was given 1 gram of Keppra and 1 gram of valproic acid. After that, the patient had episodes of loss of responsiveness associated with horizontal nystagmus that were interpreted as nonconvulsive seizures - these responded to Ativan. An EEG obtained twice (when patient was not seizing) did not show evidence of seizure activity. Because of the recurrence of the nonconvulsive seizures, it was determined that continuous EEG monitoring would be most appropriate. The patient was accepted in transfer at [facility] for this purpose. The patient's other medical problems include esophageal cancer (without known mets), type 2 diabetes, hypertension, fibromyalgia, depression, and hypothyroidism. This patient has had several recent admissions to this hospital for poorly controlled seizures. Most recent hospitalization was approximately 1 month ago. PHYSICAL EXAM AT THE TIME OF TRANSFER: General: The patient was somnolent but arousable, and responded appropriately to verbal commands. Vital Signs: Temp was 96.9, heart rate 97 and regular, respirations 16 and nonlabored, O2 saturation 95% on room air, blood pressure 120/73. HEENT: Pupils were mid position and reactive to light. There was no facial asymmetry. Extraocular movements were full. Neck was supple. Lungs were clear to auscultation. Cardiac exam revealed no murmurs. Abdomen was nondistended. Extremities were warm and not cyanotic. LABORATORY DATA: Admission laboratory tests were significant for a serum alcohol < 10 and a negative urine tox screen. TSH was 1.3, magnesium 2.2, and glucose 101. A plasma Keppra level is pending. MEDICATIONS RECEIVED DURING THE HOSPITALIZATION: 1. Valproic acid 1 g IV. 2. Keppra 1 g IV in the ED followed by 750 mg IV in the ICU approximately 7 hours later. 3. The patient also received a total of 8 mg of lorazepam for acute control of seizures. DISCHARGE DISPOSITION: The patient will be transferred to [facility] by ALS ambulance. DISCHARGE TIME: 45 minutes. [id number]/[facility] #: [id number] OND[place]
--- NOTE | 2019-05-07 13:36 | EEG ---
ELECTROENCEPHALOGRAPHY: DATE OF STUDY: 05/07/19 - ROOM #ICU-03 PATIENT OF: Dr. Sheriff. CLINICAL PROBLEM: This is a 53-year-old woman being evaluated for possible ongoing seizures with abnormal eye movements. MEDICATIONS: Include: 1. Depakote. 2. Keppra. Other meds not listed. REPORT: With some muscle movement artifact, background consists of diffuse irregular admixed delta and beta activity. No focal findings or epileptiform potentials are noted. CLINICAL IMPRESSION: An EEG was done so we would have access to if her abnormal eye movements began. Again, she had some eye deviation with this. [id number]/[facility] #: [id number] [facility]
[2019-05-07 17:09] VITALS: BP 143/94
== END 2019-05-07 18:38 | disposition short-term general hospital (02) | DRG 101 ==
LOC: ED 22:14 → ICU 05-07 06:16
PROVIDERS: ADMIT Student in an Organized Health Care Education/Training Program; ATTEND Internal Medicine Critical Care Medicine
PROC: 4A00X4Z Measurement of Central Nervous Electrical Activity, External Approach (ICD-10-PCS; principal; 2019-05-07)
DX: G40.909 Epilepsy, unspecified, not intractable, without status epilepticus (principal); E11.9 Type 2 diabetes mellitus without complications; I10 Essential (primary) hypertension; F32.9 Major depressive disorder, single episode, unspecified; M79.7 Fibromyalgia; E78.00 Pure hypercholesterolemia, unspecified; J45.909 Unspecified asthma, uncomplicated; K21.9 Gastro-esophageal reflux disease without esophagitis; F41.9 Anxiety disorder, unspecified; E03.9 Hypothyroidism, unspecified; Z86.718 Personal history of other venous thrombosis and embolism; Z85.01 Personal history of malignant neoplasm of esophagus; Z85.41 Personal history of malignant neoplasm of cervix uteri; Z92.21 Personal history of antineoplastic chemotherapy; Z90.710 Acquired absence of both cervix and uterus; Z88.6 Allergy status to analgesic agent; Z86.73 Personal history of transient ischemic attack (TIA), and cerebral infarction without residual deficits; Z88.8 Allergy status to other drugs, medicaments and biological substances; Z88.0 Allergy status to penicillin; Z88.2 Allergy status to sulfonamides; Z91.040 Latex allergy status; Z87.891 Personal history of nicotine dependence; Z92.3 Personal history of irradiation
CPT/HCPCS: 36415; 70450; 80053; 80177; 80307; 80320; 81003; 81015; 83605; 83735; 84443; 85025; 85027; 85610; 87077; 87086; 87186; 87641; 93005; 95822; 96374; 99285; G0480; J1644; J2060

== ENCOUNTER 2019-08-16 23:33 | Emergency (ER) | payer MEDICARE, MEDICAID ==
[2019-08-16] MEDS ORDERED: NS 0.9% 1000 ML** 1,000 ML IV ONE (23:41)
--- NOTE | 2019-08-16 23:46 | ED ---
Seizure - HPI Summary HPI Summary: 53-year-old female with a significant past medical history of epilepsy and CVA presents to the emergency department today with possible seizure-like activity. Upon arrival patient is postictal and is unable to articulate her story however she is receptive to questions and can answer with yes or no. Patient's family is in the room however they state they did not witness her seizure area patient's son states he entered the home and found her lying on the ground. Patient states she did not take her Keppra today she was feeling tired. When the patient was asked if she intentionally did not take her medicine and she said yes. Patient denies suicidal ideation or intentions to harm herself. Patient is otherwise well and has no nystagmus at this time. Family denies recent fevers, nausea, vomiting, diarrhea, cough, chest pain, abdominal pain, headache. Patient denies recent use or recreational drug use. - History Of Current Complaint Time Seen by Provider: 08/16/19 23:41 Hx Obtained From: Patient Onset/Duration: Sudden Onset Aggravating Factor(s): Meds Non-compliant Alleviating Factor(s): Spontaneous Resolution - Allergies/Home Medications Allergies/Adverse Reactions: Allergies Allergy/AdvReac Type Severity Reaction Status Date / Time diphenhydramine Allergy Anaphylatic Verified 08/16/19 23:54 [From Benadryl] Shock latex Allergy blisters Verified 08/16/19 23:54 on skin Penicillins Allergy Rash Verified 08/16/19 23:54 phenobarbital Allergy Unknown Verified 08/16/19 23:54 Reaction Details propoxyphene Allergy See Comment Verified 08/16/19 23:54 [From Darvocet-N] Sulfa (Sulfonamide Allergy Rash Verified 08/16/19 23:54 Antibiotics) Home Medications: Home Medications Sertraline* [Zoloft*] 200 mg PO BID 02/16/15 [History Confirmed 08/16/19] Aspirin 81 mg CHEW TAB* 81 mg PO DAILY #30 tab.chew 10/13/18 [Rx Confirmed ] EPINEPHrine [Epipen] 0.3 mg IM ONCE PRN 02/11/19 [History Confirmed 08/16/19] Lisinopril TAB* [Prinivil TAB 5 MG*] 5 mg PO DAILY 02/11/19 [History Confirmed 08/16/19] Magnesium 500 mg PO DAILY 02/23/19 [History Confirmed 08/16/19] Omeprazole 40 mg PO BID 02/23/19 [History Confirmed 08/16/19] Atorvastatin* [Lipitor 80 MG*] 40 mg PO DAILY 08/16/19 [History Confirmed ] Cranberry Conc/Ascorbic Acid 2 tab PO DAILY 08/16/19 [History Confirmed 08/16/19 ] Vitamin D3 5,000 units PO DAILY 08/16/19 [History Confirmed 08/17/19] levETIRAcetam [Roweepra] 750 mg PO BEDTIME 08/16/19 [History Confirmed 08/16/19] Levetiracetam ER 500 mg PO QAM 08/17/19 [History Confirmed 08/17/19] PMH/Surg Hx/FS Hx/Imm Hx Endocrine/Hematology History: Reports: Hx Anticoagulant Therapy, Hx Diabetes, Hx Thyroid Disease - hypo Cardiovascular History: Reports: Hx Deep Vein Thrombosis - x3 in LUE, Hx Hypercholesterolemia, Hx Hypertension - TAKES MEDICATION Denies: Hx Pacemaker/ICD, Other Cardiovascular Problems/Disorders Respiratory History: Reports: Hx Asthma Denies: Other Respiratory Problems/Disorders GI History: Reports: Hx Gall Bladder Disease - Cholystectomy, Hx Gastroesophageal Reflux Disease, Other GI Disorders - CA OF ESOPH/ ESOPH REMOVED. 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 [place]ALLBLADDER, 2009 , [place]. ESOPHAGUS CA RESECTION Hx Anesthesia Reactions: Yes - diff to wake up Infectious Disease History: Yes Infectious Disease History: Reports: Hx of Known/Suspected MRSA, Hx Shingles Denies: Traveled Outside the [place] in Last 30 Days - Family History Known Family History: Positive: Other - No FHx of breast CA Family History: No FHx of breast CA - Social History Alcohol Use: unable to obtain due to pt condition Hx Substance Use: No Substance Use Type: Reports: None Hx Tobacco Use: Yes Smoking Status (MU): Former Smoker Review of Systems Negative: Fever Negative: Chest Pain Negative: Shortness Of Breath, Cough Negative: Abdominal Pain Negative: Rash Negative: Headache All Other Systems Reviewed And Are Negative: Yes Physical Exam - Summary Physical Exam Summary: Patient is in no acute distress. Patient is postictal upon arrival to the emergency department. There is no evidence of nystagmus. Patient is receptive to questions and can answer with yes or no however she does not verbalize. Triage Information Reviewed: Yes Vital Signs On Initial Exam: Initial Vitals Temp Pulse Resp BP Pulse Ox 98.6 F 88 16 132/94 98 08/16/19 23:41 08/16/19 23:41 08/16/19 23:41 08/16/19 23:41 08/16/19 23:41 Vital Signs Reviewed: Yes Appearance: Positive: Well-Appearing, No Pain Distress, Well-Nourished Skin: Positive: Warm, Skin Color Reflects Adequate Perfusion Eyes: Positive: EOMI, GILDA ENT: Positive: Hearing grossly normal Respiratory/Lung Sounds: Positive: Clear to Auscultation, Breath Sounds Present Cardiovascular: Positive: RRR, S1, S2 Abdomen Description: Positive: Nontender, Soft Bowel Sounds: Positive: Present Musculoskeletal: Positive: Strength/ROM Intact Neurological: Positive: Sensory/Motor Intact, Alert, Oriented to Person Place, Time, Normal Gait, Facial Symmetry, Speech Normal Psychiatric: Positive: Normal, Affect/Mood Appropriate AVPU Assessment: Alert Procedures - Sedation Patient Received Moderate/Deep Sedation with Procedure: No Diagnostics - Vital Signs Vital Signs Temp Pulse Resp BP Pulse Ox 08/16/19 23:41 98.6 F 88 16 132/94 98 - Laboratory Result Diagrams: 08/17/19 00:00 08/17/19 00:00 Lab Statement: Any lab studies that have been ordered have been reviewed, and results considered in the medical decision making process. Course/Dx - Course Course Of Treatment: Patient was evaluated in the emergency department today for possible seizure. Vitals noted and stable. Patient appeared to be postictal upon arrival to the emergency department with no evidence of tongue biting however she did have incontinence of urine. Patient was able to answer yes or no questions however she was quite lethargic. EKG was done promptly which shows no evidence of STEMI. Normal sinus rhythm at a rate of 90 bpm. Normal MO, QT interval. Patient's seizure-like activity seems to be due to medication infarction. Patient states she did not take her medication the last 2 days due to her being too tired. During physical exam there was an element of exaggerated exam. Patient acted as if she was asleep however physical exam did not support this, this aroused possibility of pseudoseizure. Laboratory studies returned showing no evidence of leukocytosis, anemia, electrolyte disturbance. Lactic acid is not elevated at 1.9. Patient was given by mouth fruit juice and ambulated around the emergency department. Patient did this with these and was discharged with outpatient follow-up. Patient's seizure appears to be due to medication infarction rather than acute illness. - Diagnoses Differential Diagnosis/HQI/PQRI: Positive: Alcohol Abuse, CVA, Metabolic Disorder, Known Seizure Disorder Provider Diagnoses: Seizure Discharge ED - Sign-Out/Discharge Documenting (check all that apply): Patient Departure - Discharge Plan Condition: Stable Disposition: HOME Patient Education Materials: Epilepsy (ED) Referrals: Ayleen Bobby MD [Primary Care Provider] - 3 Days Additional Instructions: You were seen in the emergency department today due to seizure. Please be sure to take your antiseizure medication as directed by your neurologist. Please follow-up with your neurologist in 2-3 days for further evaluation and management. Please return to the emergency department immediately if you develop any new or worsening symptoms. - Billing Disposition and Condition Condition: STABLE Disposition: Home - Attestation Statements Provider Attestation: I have seen the patient with the ELINOR and agree with the plan and documentation below except as noted: (3-year-old female presents with seizure-like activity. Patient Keppra. Patient had missed 2 doses, was given 1 dose in the ED. Last without signs of infection. Exam w no focal neuro deficits. Discharge home with family Seferino Barry MD
--- OUTSIDE RECORDS SUMMARY | 2019-08-16 23:57 | XMS REPORT | Continuity of Care Document ---
:1965 External Reference #:[id number] Author Name Galindo Crowe NP (transmitted by agent of provider Lyudmila Palmer) Address [address], [place] [address] Care Team Providers Name Role Phone Jose Horne DO - Family Care Team Information Hangar Attendant [phone] Medicine Ayleen Bobby MD - Internal Medicine Care Team Information Hangar Attendant Problems Active Problems Provider Date Essential hypertension Junior Colin M.D., [facility], Onset: 10/12/2017 [facility] Difficulty breathing Junior Colin M.D., [facility], Onset: 10/12/2017 [facility] 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 NPSG 08/22/18: AHI 7.2/hour, tRDI 25/hour, crissy oxygen 91%, no REM sleep, poor sleep efficiency at 67.1%. wt 225, BMI 38.6 Social History Type Date Description Comments Sex Unknown ETOH Use Denies alcohol use Tobacco Use Start: Unknown End: Patient is a former smoker Quit 1992 Unknown Recreational Drug Use Denies Drug Use Smoking Status Reviewed: 08/05/19 Patient is a former smoker Quit 1992 Exercise Type/Frequency Does not exercise Allergies, Adverse Reactions, Alerts Active Allergies Reaction Severity Comments Date Darvocet 10/12/2017 Benadryl 10/12/2017 Penicillin 10/12/2017 Phenobarbital 10/12/2017 Oxaliplatin 10/12/2017 Plexion 10/12/2017 Latex 10/12/2017 Bee Sting 10/12/2017 Peppers 10/12/2017 Medications Active Medications SIG Qnty Indications Ordering Date Provider Levetiracetam Take 1 Tablet By 30tabs Júnior Fischer 05/21/2019 500mg Mouth In The Shital Dunaway Tablets Morning Levetiracetam take one tab by 30tabs Júnior Fishcer 05/16/2019 750mg mouth at night. Shital Dunaway Tablets Atorvastatin Calcium 1 by mouth every 30tabs E78.2 Ayleen Bobby MD 2018 80mg day Tablets Lisinopril 1 by mouth every 90tabs Ayleen Bobby MD 12/31/2018 5mg Tablets day Ventolin HFA 2 puffs every 4 Unknown 108(90Base) hours as needed mcg/Act Aerosol Aspirin 81 1 by mouth every Unknown 81mg Tablets day Ibuprofen 4 by mouth as Unknown 200mg Tablets needed Epipen 2-Yonas use as directed 2units Ayleen Bobby MD 0.3mg/0.3ML Solution Auto-Inject Omeprazole 1 by mouth once 90caps Ayleen Bobby MD 40mg Capsules a day Magnesium 2 by mouth every Unknown 400mg Tablets day Sertraline HCL Take 2 Tablets 180tabs Ayleen Bobby MD 100mg By Mouth Every Tablets Day History Medications Lamotrigine Take One Tablet In 180tabs Júnior Fischer 04/22/2019 - 100mg The Morning And Shital Dunaway 05/20/2019 Tablets Take Two Tablets AT Night Levetiracetam Take 1 Tablet By 28tabs Júnior Fischer 04/22/2019 - 250mg Mouth Twice Daily Shital Dunaway 05/16/2019 Tablets For 2 Weeks Then Stop Levetiracetam take 2 tabs po bid 28tabs G40.909 Júnior Fischer 04/22/2019 - 250mg for 2 weeks then Shital Dunaway 04/22/2019 Tablets d/c. Lamotrigine take 1/2 tab po in 60tabs G40.Lucy SmartMarshall 04/22/2019 - 100mg the morning and 1 [...] Available Vital Signs Date Vital Result Comment 08/05/2019 1:42pm Height 64 inches 5'4" Weight 215.00 lb Heart Rate 73 /min BP Systolic Sitting 120 mmHg BP Diastolic Sitting 82 mmHg Respiratory Rate 18 /min BMI (Body Mass Index) 36.9 kg/m2 05/21/2019 1:13pm Height 64 inches 5'4" Weight 218.00 lb Heart Rate 92 /min BP Systolic 122 mmHg BP Diastolic 72 mmHg BMI (Body Mass Index) 37.4 kg/m2 Results Test Acquired Date Facility Test Result H/L Range Note Inr/Protime 05/07/2019 [facility] Inr 1.03 Normal 0.82-1.[address] [place] [address] [phone] CBC No Diff 05/07/2019 [facility] White Blood 4.7 10^3/uL Normal 3.5-10.[address] [place] [address] [phone] Red Blood Count 4.22 10^6/uL Normal 3.70-4.87 Hemoglobin 12.7 g/dL Normal 12.0-16.0 Hematocrit 36 % Normal 35-47 Mean Corpuscular Volume 86 fL Normal 80-97 Mean Corpuscular Hemoglobin 30 pg Normal 27-31 Mean Corpuscular HGB Conc 35 g/dL Normal 31-36 Red Cell Distribution Width 14 % Normal 10-15 Platelet Count 197 10^3/uL Normal 150-450 Mean Platelet Volume 6.4 fL Low 7.4-10.4 Comp Metabolic 05/07/2019 [facility] Sodium 141 mmol/L Normal 135-145 [place] [address] [phone] Potassium 4.2 mmol/L Normal 3.5-5.0 Chloride 108 mmol/L Normal 101-111 Co2 Carbon Dioxide 27 mmol/L Normal 22-32 Anion Gap 6 mmol/L Normal 2-11 Glucose 101 mg/dL High 70-100 Blood Urea Nitrogen 22 mg/dL Normal 6-24 Creatinine 0.94 mg/dL Normal 0.51-0.95 BUN/Creatinine Ratio 23.4 High 8-20 Calcium 9.0 mg/dL Normal 8.6-10.3 Total Protein 6.1 g/dL Low 6.4-8.9 Albumin 3.5 g/dL Normal 3.2-5.2 Globulin 2.6 g/dL Normal 2-4 Albumin/Globulin Ratio 1.3 Normal 1-3 Total Bilirubin 0.60 mg/dL Normal 0.2-1.0 Alkaline Phosphatase 130 U/L High 34-104 Alt 17 U/L Normal 7-52 Ast 12 U/L Low 13-39 Egfr Non- 62.5 >60 Egfr 75.7 >60 2 Laboratory test 05/07/2019 [facility] Magnesium 2.2 mg/dL Normal 1.9-2.7 [place] [address] [phone] TSH (Thyroid Stim Horm) 1.33 mcIU/mL Normal 0.34-5.60 CBC Auto 05/06/2019 [facility] White Blood 5.0 10^3/uL Normal 3.5-10.8 Diff [facility] [place] [address] [phone] Red Blood Count 4.59 10^6/uL Normal 3.70-4.87 Hemoglobin 13.6 g/dL Normal 12.0-16.0 Hematocrit 39 % Normal 35-47 Mean Corpuscular Volume 85 fL Normal 80-97 Mean Corpuscular Hemoglobin 30 pg Normal 27-31 Mean Corpuscular HGB Conc 35 g/dL Normal 31-36 Red Cell Distribution Width 14 % Normal 10-15 Platelet Count 215 10^3/uL Normal 150-450 Mean Platelet Volume 6.5 fL Low 7.4-10.4 Abs Neutrophils 3.8 10^3/uL Normal 1.5-7.7 Abs Lymphocytes 0.8 10^3/uL Low 1.0-4.8 Abs Monocytes 0.3 10^3/uL Normal 0-0.8 Abs Eosinophils 0.1 10^3/uL Normal 0-0.6 Abs Basophils 0.0 10^3/uL Normal 0-0.2 Abs Nucleated RBC 0.0 10^3/uL Granulocyte % 76.7 % Lymphocyte % 15.4 % Monocyte % 5.3 % Eosinophil % 1.9 % Basophil % 0.7 % Nucleated Red Blood Cells % 0.0 Inr/Protime 05/06/2019 [facility] Inr 1.00 Normal 0.82-1.[address] [place] [address] [phone] Laboratory test 05/06/2019 [facility] Lactic 1.3 mmol/L Normal 0.5-2.0 4 finding [facility] [place] [address] [phone] Urinalysis 05/06/2019 [facility] Urine Yellow Profile [address] [place] [address] [phone] Urine Appearance Cloudy Urine Specific [place] 1.024 Normal 1.010-1.030 Urine pH 7.0 Normal 5-9 Urine Urobilinogen Negative Negative Urine Ketones Negative Negative Urine Protein Negative Negative Urine Leukocytes Trace Abnormal Negative Urine Blood Negative Negative Urine Nitrite Negative Negative Urine Bilirubin Negative Negative Urine Glucose Negative Negative Urine White Blood Cell 1+(6-10/hpf) Abnormal Absent Urine Red Blood Cell 1+(3-5/hpf) Abnormal Absent Urine Bacteria Absent Absent Urine Squamous Epithelial Cell Present Abnormal Absent Urine Drug 05/06/2019 [facility] Urine None Detected None Detect SCR ED & [address] [place] [address] Screen [phone] Urine Barbiturates Screen None Detected None Detect Urine Benzodiazepine Screen None Detected None Detect Urine Cannabinoids Screen None Detected None Detect Urine Cocaine Screen None Detected None Detect Urine Opiates Screen None Detected None Detect Urine Phencyclidine Screen None Detected None Detect 5 Laboratory 05/06/2019 [facility] Levetiracetam 4.4 g/mL Abnormal [address] (Keppra) [place] [address] [phone] Comp Metabolic 05/05/2019 [facility] Sodium 143 mmol/L Normal 135- Panel [address] [place] [address] [phone] Potassium 4.3 mmol/L Normal 3.5-5.0 Chloride 107 mmol/L Normal 101-111 Co2 Carbon Dioxide 30 mmol/L Normal 22-32 Anion Gap 6 mmol/L Normal 2-11 Glucose 91 mg/dL Normal 70-100 Blood Urea Nitrogen 20 mg/dL Normal 6-24 Creatinine 1.01 mg/dL High 0.51-0.95 BUN/Creatinine Ratio 19.8 Normal 8-20 Calcium 9.6 mg/dL Normal 8.6-10.3 Total Protein 6.3 g/dL Low 6.4-8.9 Albumin 4.1 g/dL Normal 3.2-5.2 Globulin 2.2 g/dL Normal 2-4 Albumin/Globulin Ratio 1.9 Normal 1-3 Total Bilirubin 0.50 mg/dL Normal 0.2-1.0 Alkaline Phosphatase 139 U/L High 34-104 Alt 25 U/L Normal 7-52 Ast 15 U/L Normal 13-39 Egfr Non- 57.6 >60 Egfr 69.6 >60 7 Laboratory 05/05/2019 [facility] Lamotrigine 6.0 g/mL 2.5 - [address] (Lamictal) 15.0 [place] [address] [phone] Comp Metabolic 02/23/2019 [facility] Sodium 142 mmol/L Normal 135-[address] [place] [address] [phone] Potassium 3.8 mmol/L Normal 3.5-5.0 Chloride 111 [...] Egfr Non- 71.2 >60 Egfr 86.2 >60 9 Laboratory test 02/23/2019 [facility] C Reactive 2.95 mg/L Normal <8.[address] [place] [address] [phone] CBC Auto Diff 02/23/2019 [facility] White Blood 6.2 Normal 3.5 -10.[address] Count 10^3/[place] [address] [phone] Red Blood Count 4.21 10^6/uL Normal 3.70-4.87 [...] Blood Cells % 0.1 Ua Routine 02/18/2019 [facility] Ua Specific [place] 1020 Ua PH 5 Ua Color yellow Ua Appera clear Ua WBC negative Ua Protein negative Ua Glucose normal Ua Ketones negative Ua Bilirubin negative Ua Urobilinogen normal Ua Nitrite negative Ua Occult Blood negative Inr/Protime 02/11/2019 [facility] Inr 0.91 Normal 0.82-1.[address] [place] [address] [phone] Laboratory test 02/11/2019 [facility] Partial 35.5 Normal 26.0 -38.[address] [place] [address] Time PTT [phone] CBC Auto Diff 02/11/2019 [facility] White Blood 7.1 Normal 3.5 -10.[address] Count 10^3/uL [place], [place] [phone] Red Blood Count 4.69 10^6/uL Normal 3.70-4.87 [...] Blood Cells % 0.0 Urinalysis Profile 02/11/2019 [facility] Urine Color Yellow [address] [place] [address] [phone] Urine Appearance Cloudy Urine Specific [place] 1.031 High 1.010-1.030 Urine pH 6.0 Normal [...] Epithelial Present Abnormal Absent Laboratory test 02/11/2019 [facility] Troponin-I 0.00 <0.[address] (TnI) ng/[place] [address] [phone] Comp Metabolic 02/11/2019 [facility] Sodium 144 Normal 135- [address] mmol/[place] [address] [phone] Potassium 4.0 mmol/L Normal 3.5-5.0 Chloride 110 [...] Egfr Non- 68.4 >60 Egfr 82.7 >60 12 Lipid Profile 02/11/2019 [facility] Triglycerides 130 mg/dL 13 (Trig/Chol/HDL) [address] [place] [address] [phone] Cholesterol 158 mg/dL 14 HDL Cholesterol 37.4 mg/dL 15 LDL Cholesterol 95 mg/dL 16 Laboratory test 02/11/2019 [facility] Lactic Acid 0.8 mmol/L Normal 0.5-2.0 [address] [place] [address] [phone] TSH (Thyroid Stim Horm) 4.81 mcIU/mL Normal 0.34-5.60 Hemoglobin A1c (Glyco HGB) 5.4 % Normal 4.0-5.6 18 Urine Culture And 02/11/2019 [facility] Urine SEE RESULT [address] [place] [address] [phone] Laboratory test 02/11/2019 [facility] Point of 71 mg/dL Normal 70-1 [address] Care Glucose 00 [place] [address] [phone] CBC Auto Diff 02/06/2019 [facility] White Blood 5.4 10^3/uL Normal 3.5- [address] Count 10.8 [place] [address] [phone] Red Blood Count 4.44 10^6/uL Normal 3.70-4.87 [...] % 0.0 Iron & Iron Binding 02/06/2019 [facility] Iron 60 g/dL Normal 50-212 [address] [place] [address] [phone] Unsaturated Iron Binding < 311 g/dL Total Iron Binding Capacity 326 g/dL Normal 250-450 Transferrin 233 mg/dL Normal 203-362 % Iron Saturation 18 % Normal 15-55 Comp Metabolic 02/06/2019 [facility] Sodium 143 mmol/L Normal 135-145 Panel [address] [place] [address] [phone] Potassium 3.8 mmol/L Normal 3.5-5.0 Chloride 109 [...] Egfr Non- 63.3 >60 Egfr 76.6 >60 22 Laboratory test 02/06/2019 [facility] Ferritin 68.2 ng/mL Normal 11-307 23 finding [address] [place] [address] [phone] 1 Standard intensity warfarin therapeutic range: 2.0-3.0 High intensity warfarin therapeutic range: 2.5-3.5 2 Because ethnic data is not always readily [...] 15-29 5 Kidney failure <15 (or dialysis) 3 Standard intensity warfarin therapeutic range: 2.0-3.0 High intensity warfarin therapeutic range: 2.5-3.5 4 [facility] Severe Sepsis and Septic Shock Management Bundle Measure requires all lactic acids initially measuring >2.0 mmol/L be repeated. 5 The urine specimen was tested at the listed cutoffs: Drug class test level (ng/mL) Amphetamines 500 Barbiturates 200 Benzodiazepine metabolites 200 Cocaine metabolites 150 Cannabinoids 50 Opiates 300 Pcp 25 Specimen was received without chain of custody. Results should be used for medical purposes only. 6 REFERENCE VALUE 12.0 - 46.0 ADDITIONAL INFORMATION This test was developed and its performance characteristics determined by [facility] in a manner consistent with CLIA requirements. This test has not been cleared or approved by the U.S. Food and Drug Administration. Test Performed by: [facility] - [address] [address] Health Informatics Instructor: Jh Covarrubias M.D. Ph.D.; CLIA# [id number] 7 Because ethnic data is not always readily [...] 15-29 5 Kidney failure <15 (or dialysis) 8 ADDITIONAL INFORMATION This test was developed and its performance characteristics determined by [facility] in a manner consistent with CLIA requirements. This test has not been cleared or approved by the U.S. Food and Drug Administration. Test Performed by: [facility] [place] [address] Health Informatics Instructor: Jh Covarrubias M.D. Ph.D.; CLIA# [id number] 9 Because ethnic data is not always readily [...] 15-29 5 Kidney failure <15 (or dialysis) 10 Standard intensity warfarin therapeutic range: 2.0-3.0 High intensity warfarin therapeutic range: 2.5-3.5 11 Troponin-I testing on Plasma Separator Tubes (PST) has a known false positive rate of 0.20-0.40%. All positive troponins reflex immediately to secondary confirmatory testing. Using the [employer] DxI 800 Access Immunoassay systems, the 99th percentile upper reference limit was demonstrated to be < 0.03 ng/mL. 12 Because ethnic data is not always readily [...] 15-29 5 Kidney failure <15 (or dialysis) 13 Desirable: <150 Borderline High: 150-199 High: 200-499 Very High: >500 14 Desirable: <200 Borderline High: 200-239 High: >239 15 Low: <40 Desirable: 40-60 High: >60 16 Desirable: <100 Near Optimal: 100-129 Borderline High: 130-159 High: 160-189 Very High: >189 17 [facility] Severe Sepsis and Septic Shock Management Bundle Measure requires all lactic acids initially measuring >2.0 mmol/L be repeated. 18 Therapeutic target for the treatment of diabetes mellitus patients is <7% HBA1C, and in selective patients <6.0%. Please refer to [place] [employer] diabetic care guidelines for further information. 19 SEE RESULT BELOW Name: LACEYSHAWNMILVIA S : [address]: Terese [place] MD Acct: [id number] Unit: [id number] AGE: 53 Location: [place] [address] Re02/11/19 Dis: 02/12/19 SEX: F Status: DIS IN SPEC: [id number] MAGALY: 02/11/[address]: Bin Pastor MD REQ: [id number] RECD: 02/11/19 STATUS: ALAN COOPER DR: Ayleen Bobby MD _ SOURCE: URINE [facility]: ORDERED: Urine Culture Procedure Result Reported Site Urine Culture Final 02/13/19855 ML Organism 1 ESCHERICHIA COLI Hope Count >100,000 (Many) CFU/ML 1. ESCHERICHIA COLI [...] . END OF REPORT DEPARTMENT OF PATHOLOGY, [address] [place] [address] Hany Damon M.D. Director [facility] # [id number] 20 Auto Carrier Driver: [id number] 22 Because ethnic data is not always [...] 5 Kidney failure <15 (or dialysis) 23 [id number] Procedures Date Code Description Status 05/07/2019 03068 EEG Recording Awake & Asleep Completed 02/12/2019 21521 EEG Recording Awake & Asleep Completed 02/11/2019 147895145 Diabetic Retinal Eye Exam Completed 09/13/2017 [id number] Colonoscopy Completed Medical Devices Description No Information Available Encounters Type Date Location Provider Dx Diagnosis Office Visit 05/21/2019 [facility] Galindo Crowe NP G40.909 Epilepsy , unsp, 1:00p [facility] not intractable, without status epilepticus G47.33 Obstructive sleep apnea (adult) (pediatric) Office 05/07/2019 [facility] Felix G40.909 Epilepsy, unsp, Visit 7:00a Clinic MD [place] not intractable, without status epilepticus Office 05/07/2019 [facility] Pedro Sheriff, G40.89 Other seizures Visit 10:28a [facility]arshallDM[facility] Office 04/22/2019 [facility] Galindo Crowe, G47.33 Obstructive sleep Visit 2:00p [facility] ZIPPER TRIMMER HAND apnea (adult) (pediatric) G40.909 Epilepsy, unsp, not intractable, without status epilepticus Office 03/24/2019 [facility] Flores G47.33 Obstructive Visit 11:15a [facility] AASHISH Walker, RN, sleep apnea ALL SOURCE INTELLIGENCE TECHNICIAN- (adult) (pediatric) Office 03/19/2019 [facility] Galindo Crowe NP G40.909 Epilepsy, unsp , Visit 1:00p [facility] not intractable, without status epilepticus Office 02/24/2019 [facility] [place] G40.909 Epilepsy, unsp, Visit 7:00a Filemon Green M.D. not intractable, without status epilepticus Office 02/24/2019 [facility] Candi Mahoney, G40.909 Epilepsy, unsp, Visit 9:29a Asskiarra,nia Novak M.D. 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) Shital G40.909 Epilepsy, unsp, not intractable, without status epilepticus Office Visit 02/12/2019 9:38a [facility] Lacey Arguelles, R56.9 Unspecified Assoc,pc [employer]IP[employer] TRIM[employer] HAND convulsions Hospitalists B96.20 Unsp Escherichia coli as the cause of diseases classd elswhr N39.0 Urinary tract infection, site not specified Office 02/11/2019 [facility] Júnior 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 Visit 7:00a Filemon Dunaway (postepileptic) Shital G40.909 Epilepsy, unsp, not intractable, without status epilepticus Office Visit 02/11/2019 9:37a [facility] Lacey Blane, R56.9 Unspecified Assoc,pc [employer]IP[employer] HAND convulsions Hospitalists R53.1 Weakness N39.0 Urinary tract infection, site not specified I10 Essential (primary) hypertension Z86.73 Prsnl hx of TIA (TIA), and cereb infrc w/o resid deficits F32.9 Major depressive disorder, single episode, unspecified Assessments Date Code Description Provider 08/05/2019 G40.909 Epilepsy, unspecified, not Galindo CHLOE Crowe intractable, without status epilepticus 08/05/2019 Z79.899 Other chcf (current) drug Galindo Crowe NP therapy 05/21/2019 G40.909 Epilepsy, unspecified, not Galindo Knerica [employer]IP[employer] TRIMMER HAND intractable, without status epilepticus 05/21/2019 G47.33 Obstructive sleep apnea (adult) Galindo Crowe NP (pediatric) 05/07/2019 G40.909 Epilepsy, unspecified, not Felix Menjivar MD intractable, without status epilepticus 05/07/2019 G40.89 Other seizures Pedro Sheriff M.D. 04/22/2019 G47.33 Obstructive sleep apnea (adult) Galindo Crowe NP (pediatric) 04/22/2019 G40.909 Epilepsy, unspecified, not Galindo Amrita [employer]IP[employer] TRIMMER HAND intractable, without status epilepticus 03/24/2019 G47.33 Obstructive sleep apnea (adult) Flores Walker DNP, RN, (pediatric) [facility]- 03/19/2019 G40.909 Epilepsy, unspecified, not Galindo CHLOE Crowe intractable, without status epilepticus 02/24/2019 G40.909 Epilepsy, unspecified, not [place] Green M.D. [...] M.D. 02/12/2019 R56.9 Unspecified convulsions Lacey Blane, ZIPPER TRIMMER HAND 02/12/2019 B96.20 Unspecified Escherichia coli [E. Lacey Blane, ZIPPER TRIMMER HAND coli] as the cause of diseases classified elsewhere 02/12/2019 N39.0 Urinary tract infection, site not Lacey Blane, ZIPPER TRIMMER HAND specified 02/12/2019 G40.909 Epilepsy, unspecified, not Júnior Dunaway M.D. 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 02/11/2019 R56.9 Unspecified convulsions Lacey Blane, [employer]IPPER TRIMMER HAND 02/11/2019 G40.909 Epilepsy, unspecified, not Júnior Dunaway M.D. intractable, without status epilepticus 02/11/2019 R53.1 Weakness Lacey Blane, [employer]IP[employer] TRIMMER HAND 02/11/2019 N39.0 Urinary tract infection, site not Lacey Blane, ZIPPER TRIMMER HAND specified 02/11/2019 I10 Essential (primary) hypertension Lacey Blane, [employer]IPPER TRIMMER HAND 02/11/2019 Z86.73 Personal history of transient Lacey Blane, [employer]IPPER TRIMMER HAND ischemic attack (TIA), and cerebral infarction without residual deficits 02/11/2019 F32.9 Major depressive disorder, single Lacey Blane, ZIPPER TRIMMER HAND episode, unspecified Plan of Treatment Future Appointment(s):11/04/2019 1:30 pm - Galindo Crowe NP at [facility]09/23/2019 1:30 pm - Flores Walker DNP, RN, ALL SOURCE INTELLIGENCE TECHNICIAN- BC at [facility]08/19/2019 1:20 pm - Ayleen Bobby MD at [facility] Internal Medicine - [facility]08/05/2019 - Galindo Crowe NPG40.909 Epilepsy , unspecified, not intractable, without status epilepticusFollow up:3 CKTDXUM09.899 Other chcf (current) drug therapy Functional Status Description No Information Available Mental Status Description No Information Available Referrals Description No Information Available
[2019-08-17 00:05] LABS: ABS Eosinophils 0.1 10^3/ul (0-0.6); ABS Lymphocytes 0.7 10^3/ul (1.0-4.8); ABS Monocytes 0.4 10^3/ul (0-0.8); ABS Neutrophils 4.3 10^3/ul (1.5-7.7); Hematocrit 38 % (35-47); Hemoglobin 13.2 g/dL (12.0-16.0); Lymphocyte % 13.3 %; Mean Corpuscular HGB Conc 35 g/dL (31-36); Mean Corpuscular Hemoglobin 30 pg (27-31); Mean Corpuscular Volume 85 fL (80-97); Mean Platelet Volume 6.4 fL (7.4-10.4); Platelet Count 199 10^3/uL (150-450); Red Blood Count 4.42 10^6 /uL (3.70-4.87); Red Cell Distribution Width 14 % (10-15); White Blood Count 5.5 10^3/uL (3.5-10.8)
[2019-08-17 00:16] LABS: INR 1.02 (0.82-1.09)
[2019-08-17 00:24] LABS: Albumin 3.8 g/dL (3.2-5.2); Albumin/Globulin Ratio 1.5 (1-3); BUN/Creatinine Ratio 23.6 (8-20); Calcium 9.1 mg/dL (8.6-10.3); EGFR African American 80.6 (>60); EGFR Non-African American 66.6 (>60); Globulin 2.5 g/dL (2-4); Magnesium 2.2 mg/dL (1.9-2.7); Potassium 4.1 mmol/L (3.5-5.0); Total Bilirubin 0.7 mg/dL (0.2-1.0); Total Protein 6.3 g/dL (6.4-8.9)
[2019-08-17] MEDS ORDERED: levETIRAcetam 1000MG IVPREMIX* 1,000 MG/100 ML BAG IVPB ONE (00:26)
[2019-08-17 02:33] VITALS: BP 108/82
== END 2019-08-17 02:32 | disposition home or self-care (01) ==
LOC: ED 23:33
DX: G40.909 Epilepsy, unspecified, not intractable, without status epilepticus (principal); E78.00 Pure hypercholesterolemia, unspecified; I10 Essential (primary) hypertension; Z87.891 Personal history of nicotine dependence; Z79.01 Long term (current) use of anticoagulants; E11.9 Type 2 diabetes mellitus without complications; E03.9 Hypothyroidism, unspecified; Z86.718 Personal history of other venous thrombosis and embolism; Z86.73 Personal history of transient ischemic attack (TIA), and cerebral infarction without residual deficits; Z88.2 Allergy status to sulfonamides; Z79.82 Long term (current) use of aspirin; Z79.899 Other long term (current) drug therapy; Z88.0 Allergy status to penicillin
CPT/HCPCS: 36415; 80053; 80177; 83605; 83735; 85025; 85610; 93005; 96360; 96361; 99282; J1953

== ENCOUNTER 2021-12-15 19:01 | Observation (INO) ==
[2021-12-15] MEDS ORDERED: levETIRAcetam 1000MG IVPREMIX 1,000 MG/100 ML BAG IVPB ONE (19:37)
[2021-12-15 19:57] LABS: ABS Eosinophils 0.1 10^3/ul (0-0.6); ABS Lymphocytes 0.7 10^3/ul (1.0-4.8); ABS Monocytes 0.3 10^3/ul (0-0.8); ABS Neutrophils 5.1 10^3/ul (1.5-7.7); Eosinophil % 1.6 %; Hematocrit 38 % (35-47); Hemoglobin 12.7 g/dL (12.0-16.0); Lymphocyte % 11.5 %; Mean Corpuscular HGB Conc 34 g/dL (31-36); Mean Corpuscular Hemoglobin 27 pg (27-31); Mean Corpuscular Volume 81 fL (80-97); Mean Platelet Volume 6.5 fL (7.4-10.4); Platelet Count 209 10^3/uL (150-450); Red Blood Count 4.65 10^6 /uL (3.70-4.87); Red Cell Distribution Width 15 % (10-15); White Blood Count 6.2 10^3/uL (3.5-10.8)
[2021-12-15] MEDS ORDERED: LORazepam 2 mg VIAL 1 ml ONE (20:20)
[2021-12-15 20:46] LABS: Albumin 3.9 g/dL (3.2-5.2); Albumin/Globulin Ratio 1.5 (1-3); Calcium 9.3 mg/dL (8.6-10.3); Globulin 2.6 g/dL (2-4); Magnesium 2.1 mg/dL (1.9-2.7); Potassium 3.9 mmol/L (3.5-5.0); Total Bilirubin 0.7 mg/dL (0.2-1.0); Total Protein 6.5 g/dL (6.4-8.9); eGFR CKD-EPI 70.8 (>60)
[2021-12-16] MEDS: Enoxaparin 40 MG/0.4 ML SYR SUBCUT SCH ×2 (03:14→21:16)
[2021-12-16] MEDS: Nystatin TOP POWDER 15 GM BTL TOPICAL SCH ×4 (06:00→21:15)
[2021-12-16 06:48] LABS: Magnesium 2.1 mg/dL (1.9-2.7); Potassium 3.8 mmol/L (3.5-5.0); eGFR CKD-EPI 72.6 (>60)
[2021-12-16 06:50] LABS: Urine Appearance Cloudy; Urine Bilirubin Negative (Negative); Urine Blood Negative (Negative); Urine Color Amber; Urine Glucose Negative (Negative); Urine Ketones Negative (Negative); Urine Nitrite Negative (Negative); Urine Protein Negative (Negative); Urine Specific Gravity 1.024 (1.002-1.030); Urine Urobilinogen Positive (Negative)
[2021-12-16 07:13] LABS: Urine Bacteria Absent (Absent); Urine Red Blood Cell Trace(0-2/hpf) (Absent); Urine Squamous Epithelial Cell Present (Absent); Urine White Blood Cell 2+(11-20/hpf) (Absent)
[2021-12-16 08:54] LABS: ABS Basophils 0.1 10^3/ul (0-0.2); ABS Eosinophils 0.1 10^3/ul (0-0.6); ABS Lymphocytes 0.7 10^3/ul (1.0-4.8); ABS Monocytes 0.3 10^3/ul (0-0.8); ABS Neutrophils 4.7 10^3/ul (1.5-7.7); Eosinophil % 1.8 %; Hematocrit 37 % (35-47); Hemoglobin 12.2 g/dL (12.0-16.0); Lymphocyte % 12.3 %; Mean Corpuscular HGB Conc 33 g/dL (31-36); Mean Corpuscular Hemoglobin 27 pg (27-31); Mean Corpuscular Volume 82 fL (80-97); Nucleated Red Blood Cells % 0.1; Platelet Count 191 10^3/uL (150-450); Red Blood Count 4.47 10^6 /uL (3.70-4.87); Red Cell Distribution Width 15 % (10-15); White Blood Count 5.9 10^3/uL (3.5-10.8)
[2021-12-16] MEDS ORDERED: Valproic Acid IV 1,000 MG in NS 0.9% 100 ml BAG 100 ML IVPB ONE (10:00)
[2021-12-17 06:23] LABS: ABS Eosinophils 0.1 10^3/ul (0-0.6); ABS Lymphocytes 0.9 10^3/ul (1.0-4.8); ABS Monocytes 0.3 10^3/ul (0-0.8); ABS Neutrophils 4.6 10^3/ul (1.5-7.7); Hematocrit 37 % (35-47); Hemoglobin 12.5 g/dL (12.0-16.0); Lymphocyte % 14.8 %; Mean Corpuscular HGB Conc 34 g/dL (31-36); Mean Corpuscular Hemoglobin 28 pg (27-31); Mean Corpuscular Volume 82 fL (80-97); Mean Platelet Volume 6.9 fL (7.4-10.4); Platelet Count 203 10^3/uL (150-450); Red Blood Count 4.52 10^6 /uL (3.70-4.87); Red Cell Distribution Width 15 % (10-15); White Blood Count 5.9 10^3/uL (3.5-10.8)
[2021-12-17 06:37] LABS: Calcium 9.2 mg/dL (8.6-10.3); Magnesium 2.1 mg/dL (1.9-2.7); Potassium 3.8 mmol/L (3.5-5.0); eGFR CKD-EPI 71.7 (>60)
[2021-12-17] MEDS: Nystatin TOP POWDER 15 GM BTL TOPICAL SCH (09:30)
[2021-12-17 15:23] VITALS: BP 139/83
== END 2021-12-17 15:50 | disposition home or self-care (01) ==
LOC: ED 19:01 → EDHOLD 19:01 → SUATTDRO 23:30 → MED 12-16 02:35
PROVIDERS: ADMIT Student in an Organized Health Care Education/Training Program; ATTEND Internal Medicine